=== PATIENT | female | born 1945 | race Caucasian/White ===

== ENCOUNTER 2023-12-28 13:29 | Emergency (ER) | payer MEDICARE, MEDICAID ==
[~2023-12-28] VITALS: Ht 170.2 cm; Wt 54.0 kg
[2023-12-28 15:14] LABS: Basophils # (auto) 0 10 ^3/uL (0-0.2); Basophils % (auto) 0.2 % (0.0-2.0); Eosinophils # (auto) 0 10 ^3/uL (0-0.8); Eosinophils % (auto) 0.8 % (0.0-7.0); Hematocrit 32.2 % (36.0-46.0); Hemoglobin 10.9 g/dL (12.2-16.2); Lymphocytes # (auto) 1.1 10 ^3/uL (0.4-5.4); Lymphocytes % (auto) 19.2 % (10.0-50.0); Mean Corpuscular Hemoglobin 31.5 pg (28.0-32.0); Mean Corpuscular Hgb Conc. 33.9 g/dL (32.0-36.0); Mean Corpuscular Volume 93.1 fL (80.0-100.0); Monocytes # (auto) 0.6 10 ^3/uL (0-1.3); Monocytes % (auto) 11.1 % (0.0-12.0); Neutrophils # (auto) 3.9 10 ^3/uL (1.6-8.6); Neutrophils % (auto) 68.7 % (37.0-80.0); Red Blood Cells 3.46 10^6/uL (4.0-5.20); Red Cell Distribution Width 14.1 % (11.8-14.3); White Blood Cell 5.7 10^3/uL (4.4-10.8)
[2023-12-28 16:22] LABS: Alanine Aminotransferase 14 U/L (7-40); Albumin 4.3 g/dL (3.2-4.8); Alkaline Phosphatase 76 U/L (46-116); Anion Gap 7 (5-15); Aspartate Aminotransferase 17 U/L (13-40); BUN/Creatinine Ratio 14.9 (10.0-20.0); Bilirubin, Total 0.3 mg/dL (0.2-1.0); Blood Urea Nitrogen 14 mg/dL (9-23); Calcium 9.7 mg/dL (8.7-10.4); Carbon Dioxide 22 mmol/L (20-30); Chloride 108 mmol/L (98-107); Glucose 95 mg/dL (74-106); Lipase 62 U/L (12-53); Potassium 4.1 mmol/L (3.5-5.1); Sodium 137 mmol/L (136-145)
[2023-12-28] MEDS: diphenhdrAMINE HCL 50 MG/1 ML VL IM ONE ×2 (16:57→17:28)
[2023-12-28 17:35] LABS: Urine Amorphous Crystal FEW /hpf (None Seen); Urine Bacteria FEW /hpf (None Seen); Urine Blood Negative /uL (Negative); Urine Clarity Clear (Clear); Urine Color Light-Yellow (Yellow); Urine Mucus FEW (None Seen); Urine Protein, UAD Negative (Negative); Urine Specific Gravity 1.011 (1.001-1.035); Urine Urobilinogen Normal (Negative); Urine WBC 1 /hpf (0 - 5)
[2023-12-28] MEDS: LORazepam 2MG/ML-1ML VIAL IV ONE (18:02)
[2023-12-28 19:45] VITALS: PULSE 63; RESP 15; O2SAT 97
[2023-12-28 22:48] VITALS: BP 120/48; PULSE 52; RESP 13; TEMP 97.9; O2SAT 97
== END 2023-12-28 22:53 | disposition short-term general hospital (02) ==
LOC: ER 13:29 → EDBD 13:29 → UNDOADMIN 18:32 → TELE 18:32 → ER 22:53
DX: G93.41 Metabolic encephalopathy (principal); I62.00 Nontraumatic subdural hemorrhage, unspecified; F03.90 Unspecified dementia, unspecified severity, without behavioral disturbance, psychotic disturbance, mood disturbance, and anxiety; M25.512 Pain in left shoulder; M25.511 Pain in right shoulder; Z73.6 Limitation of activities due to disability
CPT/HCPCS: 36415; 70450; 71045; 80053; 81001; 82140; 83690; 84484; 85025; 93005; 96372; 96374; 99291; J1200; J2060

== ENCOUNTER 2024-08-24 16:28 | Inpatient (IN) | payer OTHER, MEDICAID ==
[~2024-08-24] VITALS: Ht 162.6 cm; Wt 56.9 kg
--- NOTE | 2024-08-24 16:51 | ECG ---
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
--- NOTE | 2024-08-24 17:13 | ED.PDOC ---
History of Present Illness HPI Comments 79 y.o female with PMHx of dementia presents to the ED via EMS for an evaluation of generalized weakness. Per EMS, patient was found on the floor by family members today at home at around 0500. Family member on scene reported patient grabbed her chest and so they called 911. Patient presents to the ED A+O x1 which is her baseline. Patient has bruising to the left eye. No further information provided as family is not present at the ED at this time. 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 Family History Family History: Unknown Social History Smoker: Unknown Alcohol: Unknown Drugs: Unknown Lives In: Assisted Care, Shelter Unable to Obtain due to: Altered Mental Status, Dementia, Other (hx of alzheimers ) Physical Exam General Appearance: Mild Distress HEENT: PERRL/EOMI, Other (Left supraorbital bruising and soft tissue tenderness) Neck: Full Range of Motion, Normal Inspection, Supple, Other (Patient winces when the midline and paraspinal cervical area is palpated.) Respiratory: Chest Non-Tender, Lungs Clear, No Accessory Muscle Use, No Respiratory Distress, Normal Breath Sounds Cardiovascular: No Edema, No JVD (Fourteen IV gave need to be on a D5 infusion), Regular Rate/Rhythm Breast Exam: Deferred Gastrointestinal: Non Tender, Soft Genitalia: Deferred Pelvic: Deferred Rectal: Deferred Extremities: Normal inspection, Normal range of motion, Non-tender, No pedal edema Neurologic: Alert (Oriented x1), Other (Appears anxious and confused. Does not follow commands. Occasionally can answer yes/no questions. Moves all extremities. No gross focal deficit.) Cerebellar Function: NOT DONE Reflexes: NOT DONE Skin: Bruises (Left supraorbital), Dry, Normal Color, Warm Lymphatic: NOT DONE Was a procedure done? Was a procedure done?: No EKG EKG : Comments Sinus rhythm, rate 91, normal intervals, borderline right axis deviation, normal QRS, inferior ST depression with other nonspecific T changes. Differential Dx Considerations may include: CVA, TIA, facial fracture, intracranial hemorrhage, skull fracture, arrhythmia, MD, infection such as UTI or pneumonia, sepsis, rhabdomyolysis, Electrolyte imbalance, Dehydration, renal failure, among others X-Ray, Labs, Meds, VS Vital Signs Date Time Temp Pulse Resp B/P (MAP) Pulse Ox O2 Delivery O2 Flow Rate FiO2 08/24/24 21:10 83 15 98 Nasal Cannula* 2 28 08/24/24 21:09 100.9 100.9 08/24/24 20:00 86 08/24/24 19:41 99.9 90 17 164/65 (98) 94 99.9 08/24/24 18:16 Room Air* 0 21 08/24/24 17:48 98.1 94 17 128/69 (88) 98 98.1 08/24/24 16:43 97.3 73 18 100/49 (66) 94 08/24/24 16:39 91 Lab Test 08/24/24 21:16 08/24/24 20:55 08/24/24 19:01 08/24/24 18:15 Range/Units Troponin I High Sensitivity Pending 8 9 </=34 ng/L Urine Color Yellow Yellow Urine Clarity Clear Clear Urine pH 7.5 5.0-9.0 Urine Specific [place] 1.024 1.001-1.035 Urine Protein 1+ H Negative Urine Ketones 1+ H Negative Urine Blood 1+ H Negative /uL Urine Nitrite Negative Negative Urine Bilirubin Negative Negative Urine Urobilinogen 2 H Negative mg/dL Urine Leukocyte Esterase Negative Negative /uL Urine RBC 22 0 - 4 /hpf Urine Microscopic WBC 1 0-5 /HPF Urine Squamous Epithelial Cells Few <5 /hpf Urine Bacteria None seen None Seen /hpf Urine Glucose Normal Normal mg/dL White Blood Count 10.5 4.4-10.8 10^3/uL Red Blood Count 3.66 L 4.0-5.20 10^6/uL Hemoglobin 11.2 L 12.2-16.2 g/dL Hematocrit 32.4 L 36.0-46.0 % Mean Corpuscular Volume 88.4 80.0-100.0 fL Mean Corpuscular Hemoglobin 30.7 28.0-32.0 pg Mean Corpuscular Hemoglobin Concent 34.7 32.0-36.0 g/dL Red Cell Distribution Width 16.5 H 11.8-14.3 % Platelet Count 145 140-450 10^3/uL Mean Platelet Volume 7.6 6.9-10.8 fL Neutrophils (%) (Auto) 86.2 H 37.0-80.0 % Lymphocytes (%) (Auto) 3.2 L 10.0-50.0 % Monocytes (%) (Auto) 10.3 0.0-12.0 % Eosinophils (%) (Auto) 0.0 0.0-7.0 % Basophils (%) (Auto) 0.3 0.0-2.0 % Neutrophils # (Auto) 9.1 H 1.6-8.6 10 ^3/uL Lymphocytes # (Auto) 0.3 L 0.4-5.4 10 ^3/uL Monocytes # (Auto) 1.1 0-1.3 10 ^3/uL Eosinophils # (Auto) 0 0-0.8 10 ^3/uL Basophils # (Auto) 0 0-0.2 10 ^3/uL Nucleated Red Blood Cells 0.0 % Sodium Level 137 136-145 mmol/L Potassium Level 4.0 3.5-5.1 mmol/L Chloride Level 101 98-107 mmol/L Carbon Dioxide Level 26 20-31 mmol/L Anion Gap 10 5-15 Blood Urea Nitrogen 21 9-23 mg/dL Creatinine 1.04 H 0.550-1.02 mg/dL Glomerular Filtration Rate Calc 55 >90 mL/min BUN/Creatinine Ratio 20.2 H 10.0-20.0 Serum Glucose 102 74-106 mg/dL Lactic Acid Level 1.8 0.4-2.0 mmol/L Calcium Level 10.0 8.7-10.4 mg/dL Total Bilirubin 0.5 0.2-1.0 mg/dL Aspartate Amino Transferase (AST) 71 H 13-40 U/L Alanine Aminotransferase (ALT) 30 7-40 U/L Alkaline Phosphatase 74 46-116 U/L Creatine Kinase 2407 H 34-145 U/L B-Type Natriuretic Peptide 379.13 0-100 pg/mL Total Protein 7.9 5.7-8.2 g/dL Albumin 4.7 3.2-4.8 g/dL Current Medications Medications (Trade) Dose Ordered Sig/Ijeoma Route Start Time Stop Time Status Last Admin Lorazepam (Ativan Inj) 0.5 mg ONCE ONCE IV 08/24/24 17:15 08/24/24 17:16 DC 08/24/24 18:15 CHEST RADIOGRAPH Indication: found down Technique: Single frontal view of the chest was obtained Comparison: XY CHEST XRAY 1 VIEW on DOS: 12/28/23 FINDINGS: Lines and Tubes: None Lungs: Mild elevation of the right diaphragm with linear atelectasis in the right base just above the diaphragm. Pleura: No effusion. No pneumothorax. Cardiomediastinal contours: Unremarkable Bones: No acute osseous abnormality. IMPRESSION: 1. Linear atelectasis right base ATED BY: WAYNE CHAMPAGNE Jr., DO DICTATED DATE/TIME: 08/24/241813 SIGNED BY: WAYNE CHAMPAGNE Jr., SIGNED DATE/TIME: 08/24/241813 CC: [place] [id number] Ph: [phone] DIAGNOSTIC IMAGING Diagnostic Imaging Report : [id number] Signed PATIENT: KALIN CRAMER ACCT: [id number] UNIT: [id number] : 1945 LOC: ER ROOM / BED: / AGE / SEX: 79 / F ADM STATUS: REG ER SERVICE 07 ORDERING PHYSICIAN: IVANNA BUTLER MD PROCEDURE(s): HWOCT - HEAD WITHOUT CONTRAST REASON: found down with facial bruising ORDER NUMBER(s): [id number], ACCESSION NUMBER(s): [id number] EXAM: CT HEAD WITHOUT CONTRAST INDICATION: found down with facial bruising TECHNIQUE: CT of the head without intravenous contrast. Radiation Dose Information: CT Dose: CTDI volume is 56.05 mGy. Dose-length pr oduct is 2056.1 mGy*cm The dose indicators for CT are the volume Computed Tomography (CT) Dose Index (CTDIvol) and the Dose Length Product (DLP), and are measured in units of mGy and mGy-cm, respectively. These indicators are not patient dose, but values generated from the CT scanner acquisition factors. The report includes radiation exposure data for exposures received during this examination. COMPARISON: CT HEAD WITHOUT CONTRAST on DOS: 12/28/23 FINDINGS: There is no evidence of acute intracranial hemorrhage, extra-axial collection, mass effect, midline shift, herniation or hydrocephalus. The ventricles, sulci and cisterns are age appropriate. The tineo-white differentiation is intact. Patchy periventricular and subcortical white matter hypoattenuation is nonspecific but may be related to small vessel ischemic disease. The visualized paranasal sinuses and mastoid air cells are clear. The surrounding soft tissues and osseous structures are unremarkable. IMPRESSION: 1. 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 2. No acute intracranial hemorrhage. 3. No findings of territorial ischemia ATED BY: WAYNE CHAMPAGNE Jr., DO DICTATED DATE/TIME: 08/24/241826 SIGNED BY: WAYNE CHAMPAGNE Jr., SIGNED DATE/TIME: 08/24/241826 CC: [place] [address] Ph: [phone] DIAGNOSTIC IMAGING Diagnostic Imaging Report : [id number] Signed PATIENT: KALIN CRAMER ACCT: [id number] UNIT: [id number] : 1945 LOC: ER ROOM / BED: / AGE / SEX: 79 / F ADM STATUS: REG ER SERVICE 07 ORDERING PHYSICIAN: IVANNA BUTLER MD PROCEDURE(s): FAC2C - MAXILLOFACIAL WITHOUT REASON: found down with L eyebrow bruising ORDER NUMBER(s): [id number], ACCESSION NUMBER(s): [id number] HISTORY: found down with L eyebrow bruising TECHNIQUE: Nonenhanced axial images through the facial bones with coronal and sagittal MPR. Radiation Dose Information: CT Dose: CTDI volume is 7.58 mGy. Dose-length product is 2056.61 mGy*cm COMPARISON: None Comments: Limited exam due to suboptimal patient positioning. FINDINGS: Mandible: Unremarkable Maxilla: Torus palatinus. No evidence of acute fracture. Zygomatic arches: Unremarkable Nasal bone: Unremarkable Orbits: Unremarkable Sinuses: Clear Dental: Scattered dental and periodontal disease. Multiple missing teeth. Facial swelling: Mild left periorbital soft tissue swelling. No evidence of soft tissue gas or radiopaque foreign bodies. IMPRESSION: 1. No acute facial fractures. 2. Mild left periorbital soft tissue swelling. Radiation optimization: All CT scans at this facility use at least one of these dose optimization techniques: automated exposure control mA and/or kV adjustment per patient size (includes targeted exams where dose is matched to clinical indication) or iterative reconstruction. ATED BY: AGATHA GODDARD DO DICTATED DATE/TIME: 08/24/241842 SIGNED BY: AGATHA GODDARD DO SIGNED DATE/TIME: 08/24/241842 CC: [place] [address] Ph: [phone] DIAGNOSTIC IMAGING Diagnostic Imaging Report : [id number] Signed PATIENT: KALIN CRAMER ACCT: [id number] UNIT: [id number] : 1945 LOC: ER ROOM / BED: / AGE / SEX: 79 / F ADM STATUS: REG ER SERVICE 07 ORDERING PHYSICIAN: IVANNA BUTLER MD PROCEDURE(s): CS2 - CERVICAL WITHOUT CONTRAST REASON: found down ORDER NUMBER(s): [id number], ACCESSION NUMBER(s): [id number] EXAM: CT CERVICAL WITHOUT CONTRAST HISTORY: found down COMPARISON: None CTDIvol 7.58 mGy, DLP 2056.61 mGy*cm. TECHNIQUE: Multiple axial CT images of the spine were obtained using bone algorithm. Axial and coronal reformatting was done. Bone and soft tissue win dows were reviewed. Comments: Exam is limited due to suboptimal positioning within the scanner. FINDINGS: No evidence of acute fracture or traumatic subluxation. Vertebral body heights are maintained. Trace anterolisthesis C4/C5 and C7/T1. Advanced degenerative disc changes at C5- C6 and C6-C7 with disc osteophyte complexes. There is moderate spinal canal narrowing at C6-C7 and moderate to severe narrowing at C5-C6. Multilevel facet and uncovertebral joint arthropathy. Mild bilateral neural foraminal narrowing at C2-C3. Mild right and moderate to severe left neural foraminal narrowing at C3-C4. Moderate bilateral neural foraminal narrowing at C4-C5. Moderate to severe bilateral neural foraminal narrowing at C5-C6. Mild left and moderate to severe right neural foraminal narrowing at C6-C7. The visualized paraspinal soft tissues are grossly unremarkable. There is torus palatinus. No apical pneumothorax. There is a 6 mm hypodense nodule in the left thyroid which does not require further evaluation. IMPRESSION: 1. No evidence of acute fracture or traumatic subluxation in the cervical spine. 2. Advanced degenerative disc changes at C5-C6 and C6-C7. There is moderate to severe spinal canal narrowing at C5-C6. 3. Multilevel neural foraminal narrowing as described above. ATED BY: AGATHA GODDARD DO DICTATED DATE/TIME: 08/24/241835 SIGNED BY: AGATHA GODDARD DO SIGNED DATE/TIME: 08/24/241835 CC: X-Ray, Labs, Meds, VS Comment 79-year-old female with a history of dementia with baseline orientation x1 brought in by EMS after being found on the floor by family Vitals remarkable for temperature 100.9, BP 164/65 Exam remarkable for left supraorbital bruising, wincing when posterior neck is palpated Rhythm strip independently interpreted by me: Sinus rhythm, rate 94, no ectopy. CT head, C-spine and maxillofacial bones unremarkable for any acute fracture CBC unremarkable, metabolic panel remarkable for creatinine 1.04, lactate, troponin and UA unremarkable for any abnormality of acute significance. Total CK 2407 Patient treated with the following in the ED: Ativan 0.5 mg IV for agitation, 1 L 0.9 normal saline IV bolus, Tylenol fever control.650 mg [place] On re-evaluation, patient is resting comfortably with stable vitals. Plan is to admit the patient for IV hydration. Time of 1ST Reevaluation: 17:10 Reevaluation 1ST: Unchanged Patient Education/Counseling: Other Family Education/Counseling: No Family Present Departure 1 Departure Time of Disposition: 22:00 Impression: Primary Impression: Unwitnessed fall Additional Impressions: Contusion of left supraorbital area Febrile illness, acute Rhabdomyolysis Qualified Codes: M62.82 - Rhabdomyolysis Disposition: 09 ADMITTED INPATIENT Admit to: Tele Condition: Guarded Critical Care Note Critical Care Time?: No Stability Stability form required: No Heart Score Heart Score: Heart Score Response (Comments) Value History N/A 0 EKG N/A 0 Age N/A 0 Risk Factors N/A 0 Troponin N/A 0 Total 0 I personally scribed for IVANNA BUTLER MD ([facility] on 08/24/24 at 17:13. Electronically submitted by Shalonda Simeon ([facility]). I personally scribed for IVANNA BUTLER MD ([facility] on 08/24/24 at 19:48. Electronically submitted by Shalonda Simeon ([facility]). I personally scribed for IVANNA BUTLER MD ([facility]) on 08/24/24 at 19:49. Electronically submitted by Shalonda Simeon ([facility]). IVANNA BUTLER MD Aug 24, 2024 17:13
[2024-08-24] MEDS: LORazepam 2MG/ML-1ML VIAL IV ONE (18:15)
--- NOTE | 2024-08-24 18:17 | DVH ---
CHEST RADIOGRAPH Indication: found down Technique: Single frontal view of the chest was obtained Comparison: XY CHEST XRAY 1 VIEW on DOS: 12/28/23 FINDINGS: Lines and Tubes: None Lungs: Mild elevation of the right diaphragm with linear atelectasis in the right base just above the diaphragm. Pleura: No effusion. No pneumothorax. Cardiomediastinal contours: Unremarkable Bones: No acute osseous abnormality. IMPRESSION: 1. Linear atelectasis right base
[2024-08-24 18:29] LABS: Basophils # (auto) 0 10 ^3/uL (0-0.2); Basophils % (auto) 0.3 % (0.0-2.0); Eosinophils # (auto) 0 10 ^3/uL (0-0.8); Hematocrit 32.4 % (36.0-46.0); Hemoglobin 11.2 g/dL (12.2-16.2); Lymphocytes # (auto) 0.3 10 ^3/uL (0.4-5.4); Lymphocytes % (auto) 3.2 % (10.0-50.0); Mean Corpuscular Hemoglobin 30.7 pg (28.0-32.0); Mean Corpuscular Hgb Conc. 34.7 g/dL (32.0-36.0); Mean Corpuscular Volume 88.4 fL (80.0-100.0); Monocytes # (auto) 1.1 10 ^3/uL (0-1.3); Monocytes % (auto) 10.3 % (0.0-12.0); Neutrophils # (auto) 9.1 10 ^3/uL (1.6-8.6); Neutrophils % (auto) 86.2 % (37.0-80.0); Platelet Count (auto) 145 10^3/uL (140-450); Red Blood Cells 3.66 10^6/uL (4.0-5.20); Red Cell Distribution Width 16.5 % (11.8-14.3); White Blood Cell 10.5 10^3/uL (4.4-10.8)
--- NOTE | 2024-08-24 18:30 | DVH ---
EXAM: CT HEAD WITHOUT CONTRAST INDICATION: found down with facial bruising TECHNIQUE: CT of the head without intravenous contrast. Radiation Dose Information: CT Dose: CTDI volume is 56.05 mGy. Dose-length product is 2056.1 mGy*cm The dose indicators for CT are the volume Computed Tomography (CT) Dose Index (CTDIvol) and the Dose Length Product (DLP), and are measured in units of mGy and mGy-cm, respectively. These indicators are not patient dose, but values generated from the CT scanner acquisition factors. The report includes radiation exposure data for exposures received during this examination. COMPARISON: CT HEAD WITHOUT CONTRAST on DOS: 12/28/23 FINDINGS: There is no evidence of acute intracranial hemorrhage, extra-axial collection, mass effect, midline s hift, herniation or hydrocephalus. The ventricles, sulci and cisterns are age appropriate. The tineo-white differentiation is intact. Patchy periventricular and subcortical white matter hypoattenuation is nonspecific but may be related to small vessel ischemic disease. The visualized paranasal sinuses and mastoid air cells are clear. The surrounding soft tissues and osseous structures are unremarkable. IMPRESSION: 1. 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 2. No acute intracranial hemorrhage. 3. No findings of territorial ischemia
--- NOTE | 2024-08-24 18:39 | DVH ---
EXAM: CT CERVICAL WITHOUT CONTRAST HISTORY: found down COMPARISON: None CTDIvol 7.58 mGy, DLP 2056.61 mGy*cm. TECHNIQUE: Multiple axial CT images of the spine were obtained using bone algorithm. Axial and coron al reformatting was done. Bone and soft tissue windows were reviewed. Comments: Exam is limited due to suboptimal positioning within the scanner. FINDINGS: No evidence of acute fracture or traumatic subluxation. Vertebral body heights are maintained. Trace anterolisthesis C4/C5 and C7/T1. Advanced degenerative disc changes at C5-C6 and C6-C7 with dis c osteophyte complexes. There is moderate spinal canal narrowing at C6-C7 and moderate to severe narr owing at C5-C6. Multilevel facet and uncovertebral joint arthropathy. Mild bilateral neural foraminal narrowing at C2-C3. Mild right and moderate to severe left neural foraminal narrowing at C3-C4. Mode rate bilateral neural foraminal narrowing at C4-C5. Moderate to severe bilateral neural foraminal jada rowing at C5-C6. Mild left and moderate to severe right neural foraminal narrowing at C6-C7. The visualized paraspinal soft tissues are grossly unremarkable. There is torus palatinus. No apical pneumothorax. There is a 6 mm hypodense nodule in the left thyro id which does not require further evaluation. IMPRESSION: 1. No evidence of acute fracture or traumatic subluxation in the cervical spine. 2. Advanced degenerative disc changes at C5-C6 and C6-C7. There is moderate to severe spinal canal na rrowing at C5-C6. 3. Multilevel neural foraminal narrowing as described above.
--- NOTE | 2024-08-24 18:46 | DVH ---
HISTORY: found down with L eyebrow bruising TECHNIQUE: Nonenhanced axial images through the facial bones with coronal and sagittal MPR. Radiation Dose Information: CT Dose: CTDI volume is 7.58 mGy. Dose-length product is 2056.61 mGy*cm COMPARISON: None Comments: Limited exam due to suboptimal patient positioning. FINDINGS: Mandible: Unremarkable Maxilla: Torus palatinus. No evidence of acute fracture. Zygomatic arches: Unremarkable Nasal bone: Unremarkable Orbits: Unremarkable Sinuses: Clear Dental: Scattered dental and periodontal disease. Multiple missing teeth. Facial swelling: Mild left periorbital soft tissue swelling. No evidence of soft tissue gas or radio paque foreign bodies. IMPRESSION: 1. No acute facial fractures. 2. Mild left periorbital soft tissue swelling. Radiation optimization: All CT scans at this facility use at least one of these dose optimization gabrielle hniques: automated exposure control mA and/or kV adjustment per patient size (includes targeted exam s where dose is matched to clinical indication) or iterative reconstruction.
[2024-08-24 18:50] LABS: Alanine Aminotransferase 30 U/L (7-40); Alkaline Phosphatase 74 U/L (46-116); Anion Gap 10 (5-15); BUN/Creatinine Ratio 20.2 (10.0-20.0); Blood Urea Nitrogen 21 mg/dL (9-23); Carbon Dioxide 26 mmol/L (20-31); Chloride 101 mmol/L (98-107); Glucose 102 mg/dL (74-106); Sodium 137 mmol/L (136-145)
[2024-08-24 18:51] LABS: Albumin 4.7 g/dL (3.2-4.8); Bilirubin, Total 0.5 mg/dL (0.2-1.0); Total Protein 7.9 g/dL (5.7-8.2)
[2024-08-24 18:54] LABS: Aspartate Aminotransferase 71 U/L (13-40)
[2024-08-24 19:45] LABS: Creatine Kinase IFCC 2407 U/L (34-145)
[2024-08-24 21:10] VITALS: PULSE 83; RESP 15; O2SAT 98
[2024-08-24 21:11] LABS: Urine Bacteria None Seen /hpf (None Seen)
[2024-08-24 21:25] LABS: Urine Blood 1+ /uL (Negative); Urine Clarity Clear (Clear); Urine Color Yellow (Yellow); Urine Protein, UAD 1+ (Negative); Urine Specific Gravity 1.024 (1.001-1.035); Urine Squamous Epithelial Cell FEW /hpf (<5); Urine Urobilinogen 2 mg/dL (Negative); Urine WBC 1 /HPF (0-5); Urine pH 7.5 (5.0-9.0)
[2024-08-24] MEDS: ACETAMINOPHEN 650 MG RECT SUPP PR ONE (22:02)
[2024-08-24] MEDS ORDERED: NITROGLYCERIN 0.4 MG SL TAB SL PRN (22:45)
[2024-08-24] MEDS ORDERED: MORPHINE SULFATE INJ 2 MG/ml SYRG IV PRN (22:45)
[2024-08-24] MEDS ORDERED: SODIUM CHLORIDE 0.9% 1,000 ML IV SCH (22:45)
[2024-08-24] MEDS ORDERED: ACETAMINOPHEN 325 MG TAB PO PRN (22:45)
[2024-08-24] MEDS: SODIUM CHLORIDE 0.9% 1,000 ML IV ONE (22:48)
--- NOTE | 2024-08-24 23:17 | DVHHPRES ---
History of Present Illness Resident Creating Document: CHRIS SPARKS RESIDENT History of Present Illness KALIN CRAMER a 79-year-old female with a PMH of Alzheimer's dementia presented to the ED with the chief complaints of altered level of sensorium. Patient is poor historian, history obtained from EMS, reported patient is generally always altered due to dementia but today patient family found patient was on the floor, called 911. The reported patient is more altered than usual which prompted them to call EMS. PMH: Dementia likely Alzheimer's PSH: Unable to obtain Family history unable to obtain Social history: Lives in [facility]. Home medications: Unknown Allergies: Unknown Review of Systems Review of Systems Unable to obtain ROS due to patient's clinical status Neurological: Weakness, Confusion Allergies: Coded Allergies: NO KNOWN ALLERGIES (Unverified , 12/28/23) Medications Current Medications Medications Dose Ordered Sig/Ijeoma Route Start Time Stop Time Status Last Admin Dose Admin Sodium Chloride 10 ml Q8HR IV 08/25/24 06:00 Acetaminophen 650 mg Q6HP PRN PO 08/24/24 22:45 Nitroglycerin 0.4 mg Q5MINP PRN SL 08/24/24 22:45 Morphine Sulfate 2 mg Q30M PRN IV 08/24/24 22:45 Pantoprazole Sodium 40 mg DAILY IV 08/25/24 10:00 Sodium Chloride 1,000 ml @ 120 mls/hr Q8H20M IV 08/24/24 23:15 Exam Vital Signs Vital Signs Date Time Temp Pulse Resp B/P (MAP) Pulse Ox O2 Delivery O2 Flow Rate FiO2 08/24/24 22:02 100.9 08/24/24 21:10 83 15 98 Nasal Cannula* 08 2908/24/24 19:41 164/65 (98) Exam Pt is lying on bed General Appearance: Confused, Oriented X0 HEENT: Atraumatic, Mucous membranes dry Respiratory: Clear to auscultation, Normal air movement Cardiovascular: Regular rate, Normal S1, Normal S2 Abdominal: Active bowel sounds, Soft, no distention, no tenderness Extremities: 1-2+ edema BLE, Normal pulses, No tenderness/swelling Skin: Bruits over left supraorbit Neuro: Confused, unable to do Nurse was there as sharperone during examination Labs/Xrays Labs Test 08/24/24 21:42 08/24/24 21:16 08/24/24 20:55 08/24/24 18:15 Range/Units POC Glucose 113 H 70-106 mg/dl Troponin I High Sensitivity 8 </=34 ng/L Urine Color Yellow Yellow Urine Clarity Clear Clear Urine pH 7.5 5.0-9.0 Urine Specific [place] 1.024 1.001-1.035 Urine Protein 1+ H Negative Urine Ketones 1+ H Negative Urine Blood 1+ H Negative /uL Urine Nitrite Negative Negative Urine Bilirubin Negative Negative Urine Urobilinogen 2 H Negative mg/dL Urine Leukocyte Esterase Negative Negative /uL Urine RBC 22 0 - 4 /hpf Urine Microscopic WBC 1 0-5 /HPF Urine Squamous Epithelial Cells Few <5 /hpf Urine Bacteria None seen None Seen /hpf Urine Glucose Normal Normal mg/dL White Blood Count 10.5 4.4-10.8 10^3/uL Red Blood Count 3.66 L 4.0-5.20 10^6/uL Hemoglobin 11.2 L 12.2-16.2 g/dL Hematocrit 32.4 L 36.0-46.0 % Mean Corpuscular Volume 88.4 80.0-100.0 fL Mean Corpuscular Hemoglobin 30.7 28.0-32.0 pg Mean Corpuscular Hemoglobin Concent 34.7 32.0-36.0 g/dL Red Cell Distribution Width 16.5 H 11.8-14.3 % Platelet Count 145 140-450 10^3/uL Mean Platelet Volume 7.6 6.9-10.8 fL Neutrophils (%) (Auto) 86.2 H 37.0-80.0 % Lymphocytes (%) (Auto) 3.2 L 10.0-50.0 % Monocytes (%) (Auto) 10.3 0.0-12.0 % Eosinophils (%) (Auto) 0.0 0.0-7.0 % Basophils (%) (Auto) 0.3 0.0-2.0 % Neutrophils # (Auto) 9.1 H 1.6-8.6 10 ^3/uL Lymphocytes # (Auto) 0.3 L 0.4-5.4 10 ^3/uL Monocytes # (Auto) 1.1 0-1.3 10 ^3/uL Eosinophils # (Auto) 0 0-0.8 10 ^3/uL Basophils # (Auto) 0 0-0.2 10 ^3/uL Nucleated Red Blood Cells 0.0 % Sodium Level 137 136-145 mmol/L Potassium Level 4.0 3.5-5.1 mmol/L Chloride Level 101 98-107 mmol/L Carbon Dioxide Level 26 20-31 mmol/L Anion Gap 10 5-15 Blood Urea Nitrogen 21 9-23 mg/dL Creatinine 1.04 H 0.550-1.02 mg/dL Glomerular Filtration Rate Calc 55 >90 mL/min BUN/Creatinine Ratio 20.2 H 10.0-20.0 Serum Glucose 102 74-106 mg/dL Lactic Acid Level 1.8 0.4-2.0 mmol/L Calcium Level 10.0 8.7-10.4 mg/dL Total Bilirubin 0.5 0.2-1.0 mg/dL Aspartate Amino Transferase (AST) 71 H 13-40 U/L Alanine Aminotransferase (ALT) 30 7-40 U/L Alkaline Phosphatase 74 46-116 U/L Creatine Kinase 2407 H 34-145 U/L B-Type Natriuretic Peptide 379.13 0-100 pg/mL Total Protein 7.9 5.7-8.2 g/dL Albumin 4.7 3.2-4.8 g/dL Assessment/Plan Assessment/Plan # acute toxic or metabolic encephalopathy # mechanical fall likely with altered sensorium # H/o Alzheimer's dementia # supraorbital bruise r/o hematoma # R/o acute CVA -head CT showed no acute changes -CT maxillofacial showed mild left periorbital soft tissue swelling -supportive treatment -physical therapy -Neuro consult # Rhabdomyolysis -elevated CK -closely monitor kidney function -give IVF PUD PPX: Protonix VTE PPX: Hold Lovenox due to fall Diet: NPO Goals of care unable to discuss due to patient's status so Full code status Pending discussion regarding goals of care with family Case discussed with Dr. Coombs and nurse. Plan discussed with: Other (RN) My Orders Orders - CHRIS SPARKS RESIDENT Procedure Category Date Status Time Admit ADMIT 08/24/24 Transmitted 22:45 Allergies SG 08/24/24 In Process 22:45 Code Status CODE 08/24/24 Transmitted 22:45 Sodium Chloride Lock PHA 08/25/24 In Process (Saline Lock Ns) 06:00 Fall Risk Precautions SG 08/24/[address] 22:45 Complete Blood Count LAB 08/25/24 Verified 04:00 Comprehensive LAB 08/25/24 Verified Metabolic Panel 04:00 Npo (Nothing By DIET 08/25/24 Transmitted Mouth) Diet Breakfast Condition: Fair [facility] 08/24/24 In Process 22:45 Acetaminophen Tablet PHA 08/24/24 In Process (Tylenol Tablet) 22:45 Nitroglycerin PHA 08/24/24 In Process Sublingual (Ntrostat 22:45 Morphine Sulfate PHA 08/24/24 In Process Injection 22:45 Oxygen By Nasal RT 08/24/24 Transmitted Cannula 22:45 Stat Ekg For Chest SG 08/24/24 In Process Pain 22:45 Notify Md Of Changes [facility] 08/24/24 In Process From Base 22:45 Chamber Magistrate For [facility] 08/24/24 In Process 24 Hours 22:45 Emergency Dysrhythmia [facility] 08/24/24 In Process Protocol 22:45 Rhythm Strips Once SG 08/24/24 In Process Every Shift 22:45 Ammonia LAB 08/24/24 Logged 22:47 Blood Alcohol LAB 08/24/24 Logged 22:47 Drug Screen LAB 08/24/24 In Process 22:47 Covid19 Antigen [place] LAB 08/24/24 Logged Lactic Acid W/ Reflex LAB 08/24/24 Logged Order 22:47 Magnesium LAB 08/24/24 Logged 22:47 PTPTT LAB 08/24/24 Logged 22:47 Rapid Influenza A&B LAB 08/24/24 Logged 22:47 Thyroid Stimulating LAB 08/24/24 Logged Hormone 22:47 Pantoprazole PHA 08/25/24 In Process (Protonix) 10:00 Bilat Lower Dvt US 08/24/24 Taken 22:47 Sodium Chloride 0.9% PHA 08/24/24 In Process 23:15 Respiratory Culture AYO 08/24/24 Logged W/ Gs 23:13 Blood Culture AYO 08/24/24 Logged 23:13 Date of Service: Aug 25, 2024 Billing Provider: RADU COOMBS MD Common Visit Codes: [id number] INP/OBS CARE (HIGH) Secondary Visit Codes: [id number] CARE PLAN 30 MINUTES CLARELEXIEMOR RESIDENT Aug 24, 2024 23:17 RADU COOMBS MD Aug 25, 2024 10:16
--- NOTE | 2024-08-24 23:26 | DVH ---
Bilateral lower extremity venous duplex Clinical History: DVT Comparison: None Technique: Duplex Doppler evaluation of the deep venous systems of both lower extremities from the common femora l veins to the popliteal veins including color Doppler and spectral/pulsed waveform analysis was perf ormed. Findings: RIGHT SIDE: The common femoral vein demonstrates appropriate compressibility and waveform variability. There is compressibility/patency of the great saphenous vein at the proximal thigh. The femoral vein demonstrates appropriate compressibility and waveform variability. The deep femoral vein demonstrates appropriate compressibility and waveform variability. The popliteal vein demonstrates appropriate compressibility and waveform variability. There is normal compressibility at the tibioperoneal trunk. LEFT SIDE: The common femoral vein demonstrates appropriate compressibility and waveform variability. There is compressibility/patency of the great saphenous vein at the proximal thigh. The femoral vein demonstrates appropriate compressibility and waveform variability. The deep femoral vein demonstrates appropriate compressibility and waveform variability. The popliteal vein demonstrates appropriate compressibility and waveform variability. There is normal compressibility at the tibioperoneal trunk. Impression: No evidence of right or left femoropopliteal venous thrombosis.
[2024-08-24 23:36] LABS: Barbiturate Scree,Urine Neg (NEGATIVE); Opiate Scree,Urine Pos (NEGATIVE)
[2024-08-24 23:41] LABS: Amphetamine Screen, Urine Neg (NEGATIVE); Benzodiazephine Screen, Urine Pos (NEGATIVE); Cannabinoid Screen, Urine Neg (NEGATIVE); Cocaine Screen, Urine Neg (NEGATIVE); Phencyclidine Screen, Urine Neg (NEGATIVE)
[2024-08-24 23:57] LABS: INR 1.13 (0.9-1.15); Partial Thromboplastin Time 33.2 SEC (24.5-34.5); Prothrombin Time 11.8 sec (9.3-11.8)
[2024-08-25] VITALS (8 sets, daily range): BP systolic 100–134; BP diastolic 50–57; PULSE 65–99; RESP 16–20; TEMP 97.6–98.6; O2SAT 94–99
[2024-08-25 00:05] LABS: Blood Alcohol < 3.0 mg/dL (<10)
[2024-08-25 00:09] LABS: COVID19 ANTIGEN SOFIA FIA NEGATIVE (NEGATIVE); Rapid Influenza A Negative (Negative); Rapid Influenza B Negative (Negative)
[2024-08-25] MEDS: SODIUM CHLORIDE 0.9% 1,000 ML IV SCH (01:49)
[2024-08-25] MEDS: cefTRIAXone 1GM/50ML D5W 50 ML IV ONE (01:50)
[2024-08-25] MEDS: SODIUM CHLOR 0.9% PF (SALINE LOCK) 10ML VIAL/SYR IV SCH (06:00)
[2024-08-25 06:26] LABS: Basophils # (auto) 0 10 ^3/uL (0-0.2); Basophils % (auto) 0.2 % (0.0-2.0); Eosinophils # (auto) 0 10 ^3/uL (0-0.8); Eosinophils % (auto) 0.1 % (0.0-7.0); Hematocrit 29.1 % (36.0-46.0); Hemoglobin 9.8 g/dL (12.2-16.2); Lymphocytes # (auto) 0.4 10 ^3/uL (0.4-5.4); Lymphocytes % (auto) 4.8 % (10.0-50.0); Mean Corpuscular Hemoglobin 30.3 pg (28.0-32.0); Mean Corpuscular Hgb Conc. 33.7 g/dL (32.0-36.0); Mean Corpuscular Volume 89.9 fL (80.0-100.0); Monocytes # (auto) 1.2 10 ^3/uL (0-1.3); Monocytes % (auto) 13.6 % (0.0-12.0); Neutrophils # (auto) 7.2 10 ^3/uL (1.6-8.6); Neutrophils % (auto) 81.3 % (37.0-80.0); Platelet Count (auto) 131 10^3/uL (140-450); Red Blood Cells 3.23 10^6/uL (4.0-5.20); Red Cell Distribution Width 16.9 % (11.8-14.3); White Blood Cell 8.9 10^3/uL (4.4-10.8)
[2024-08-25 06:45] LABS: Alanine Aminotransferase 26 U/L (7-40); Alkaline Phosphatase 65 U/L (46-116); Anion Gap 9 (5-15); BUN/Creatinine Ratio 25.9 (10.0-20.0); Blood Urea Nitrogen 22 mg/dL (9-23); Calcium 9.2 mg/dL (8.7-10.4); Carbon Dioxide 26 mmol/L (20-31); Chloride 104 mmol/L (98-107); Glucose 85 mg/dL (74-106); Potassium 3.8 mmol/L (3.5-5.1); Sodium 139 mmol/L (136-145)
[2024-08-25 06:46] LABS: Albumin 3.8 g/dL (3.2-4.8)
[2024-08-25 06:47] LABS: Bilirubin, Total 0.3 mg/dL (0.2-1.0); Total Protein 6.5 g/dL (5.7-8.2)
[2024-08-25 06:54] LABS: Aspartate Aminotransferase 66 U/L (13-40)
[2024-08-25] MEDS: PANTOPRAZOLE 40 MG/10 ML VIAL INJ IV SCH (08:56)
[2024-08-25] MEDS: cefTRIAXone 1GM/50ML D5W 50 ML IV SCH (08:56)
[2024-08-25] MEDS ORDERED: TRAZ-227 (10:36)
[2024-08-25] MEDS ORDERED: DIVA1TAB58 (10:36)
[2024-08-25] MEDS ORDERED: ALPR0.255 (10:36)
[2024-08-25] MEDS ORDERED: QUET1TAB11 (10:36)
[2024-08-25] MEDS ORDERED: DONE5TAB80 (10:36)
[2024-08-25] MEDS: QUEtiapine FUMARATE 25 MG TAB PO SCH (11:30)
[2024-08-25] MEDS: ALPRAZolam 0.25 MG TAB PO PRN (11:30)
--- NOTE | 2024-08-25 15:45 | DVHPN2 ---
Subjective Patient denies any symptoms. Somewhat agitated. Reviewed: Care Plan, H&P, Labs, Medications Changes from previous H/P or p: No Changes General: Per HPI Objective Vitals Vital Signs Date Time Temp Pulse Resp B/P (MAP) Pulse Ox O2 Delivery O2 Flow Rate FiO2 08/25/24 13:00 98.6 69 17 109/50 (69) 94 98.6 08/25/24 05:13 Room Air* 2 N/A Nasal Cannula* Intake/Output Intake and Output 08/25/24 06:59 Output Total 100 ml Balance -100 ml Output Urine Total 100 ml General Appearance: Alert, Cooperative, Other (Oriented to name) HEENT: Atraumatic, PERRLA, Other (Facial trauma) Cardiovascular: Regular rate, Normal S1, Normal S2 Abdomen: Normal bowel sounds, Soft, No tenderness Neuro: Normal gait, Normal speech Psych/Mental Status: Mental status NL, Mood NL Medications Current Medications Medications Dose Ordered Sig/Ijeoma Route Start Time Stop Time Status Last Admin Dose Admin Sodium Chloride 10 ml Q8HR IV 08/25/24 06:00 08/25/24 13:49 10 ML Acetaminophen 650 mg Q6HP PRN PO 08/24/24 22:45 Nitroglycerin 0.4 mg Q5MINP PRN SL 08/24/24 22:45 Morphine Sulfate 2 mg Q30M PRN IV 08/24/24 22:45 Pantoprazole Sodium 40 mg DAILY IV 08/25/24 10:00 08/25/24 08:56 40 MG Sodium Chloride 1,000 ml @ 120 mls/hr Q8H20M IV 08/24/24 23:15 08/25/24 07:35 120 MLS/HR Ceftriaxone Sodium 50 ml @ 100 mls/hr DAILY@09 IV 08/25/24 09:00 08/25/24 08:56 100 MLS/HR Alprazolam 0.25 mg Q12HP PRN PO 08/25/24 10:45 08/25/24 11:30 0.25 MG Divalproex Sodium 250 mg DAILY PO 08/26/24 10:00 Donepezil HCl 5 mg DAILY PO 08/26/24 10:00 Quetiapine Fumarate 25 mg DAILY PO 08/25/24 10:45 08/25/24 11:30 25 MG Trazodone HCl 50 mg HS PO 08/25/24 22:00 Haloperidol Lactate 2 mg [id number] PRN IV 08/25/24 14:30 Laboratory Results Laboratory Tests 08/25/24 05:37 Chemistry Test 08/24/24 18:15 08/24/24 23:13 08/25/24 05:37 Albumin 4.7 g/dL (3.2-4.8) 3.8 g/dL (3.2-4.8) Calcium Level 10.0 mg/dL (8.7-10.4) 9.2 mg/dL (8.7-10.4) Total Protein 7.9 g/dL (5.7-8.2) 6.5 g/dL (5.7-8.2) Magnesium Level 2.0 mg/dL (1.6-2.6) Coagulation Test 08/24/24 23:13 Prothrombin Time 11.8 sec (9.3-11.8) Prothrombin Time INR 1.13 (0.9-1.15) Activated Partial Thromboplast Time 33.2 SEC (24.5-34.5) Cardiac Markers Test 08/24/24 18:15 B-Type Natriuretic Peptide 379.13 pg/mL (0-100) LFT Test 08/24/24 18:15 08/25/24 05:37 Alanine Aminotransferase (ALT) 30 U/L (7-40) 26 U/L (7-40) Alkaline Phosphatase 74 U/L (46-116) 65 U/L (46-116) Aspartate Amino Transferase (AST) 71 U/L (13-40) H 66 U/L (13-40) H Total Bilirubin 0.5 mg/dL (0.2-1.0) 0.3 mg/dL (0.2-1.0) HgA1c, TSH Test 08/24/24 23:13 Thyroid Stimulating Hormone (TSH) 1.26 uIU/mL (0.55-4.78) Urinalysis Test 08/24/24 20:55 Urine Color Yellow (Yellow) Urine Clarity Clear (Clear) Urine pH 7.5 (5.0-9.0) Urine Specific [place] 1.024 (1.001-1.035) Urine Protein 1+ (Negative) H Urine Ketones 1+ (Negative) H Urine Blood 1+ /uL (Negative) H Urine Nitrite Negative (Negative) Urine Bilirubin Negative (Negative) Urine Urobilinogen 2 mg/dL (Negative) H Urine Leukocyte Esterase Negative /uL (Negative) Urine RBC 22 /hpf (0 - 4) Urine Microscopic WBC 1 /HPF (0-5) Urine Squamous Epithelial Cells Few /hpf (<5) Urine Bacteria None seen /hpf (None Seen) Urine Glucose Normal mg/dL (Normal) Microbiology Microbiology Date/Time Source Procedure Growth Status 08/24/24 20:55 Urine - [place] Urine Culture - Preliminary Resulted Labs and/or images reviewed: Labs reviewed by me, Image(s) reviewed by me Assessment/Plan Assessment/Plan Impression: -mechanical fall -rule out syncope -dementia -cachexia -normocytic anemia Plan: Events: Patient was found to be combative, agitated. Restarted home benzodiazepines as well as p.r.n. Haldol -echocardiogram pending -CT scan of the head: Reviewed, negative -continue Namenda -PUD, DVT prophylaxis -restart home meds Total time spent with patient discussing and formulating plan of care: 35 minutes. This medical document was created using an electronic medical record system with [employer] dictation system. Although this document has been carefully reviewed, there may still be some phonetic and typographical errors. These areas are purely typographical due to imperfections of the software programs, and do not reflect any compromise in the patient's medical care. Plan discussed with: Patient, Other (RN) My Orders RN Orders - MAGDY SINGH NP Procedure Category Date Status Time Alprazolam Tablet PHA 08/25/24 In Process (Xanax Tablet) 10:[address] Tablet PHA 08/26/24 In Process (Depakote "Dr" Tabl 10:00 Donepezil Tablet PHA 08/26/24 In Process (Aricept Tablet) 10:00 Quetiapine Fumarate PHA 08/25/24 In Process Tablet (Seroquel Tab 10:45 Trazodone Hcl PHA 08/25/24 In Process (Desyrel) 22:00 Haloperidol Lactate PHA 08/25/24 In Process Injection (Haldol) 14:30 Regular Diet DIET 08/25/24 Transmitted Dinner Date of Service: Aug 25, 2024 Billing Provider: MAGDY SINGH NP Common Visit Codes: [id number] INP/OBS CARE(HIGH) MAGDY SINGH NP Aug 25, 2024 15:45
[2024-08-25] MEDS: HALOPERIDOL LACTATE 5 MG/ML INJ VIAL IV PRN (16:20)
[2024-08-25] MEDS: traZODone HCL 50 MG TAB PO SCH (22:10)
[2024-08-26] VITALS (7 sets, daily range): BP systolic 96–124; BP diastolic 51–72; PULSE 87–100; RESP 17–20; TEMP 98–98.5; O2SAT 90–96
[2024-08-26] MEDS: DONEPEZIL HYDROCHLORIDE 5 MG TAB PO SCH (08:49)
--- NOTE | 2024-08-26 14:01 | DVHPN2 ---
Subjective Patient denies any symptoms. Somewhat agitated. Reviewed: Care Plan, H&P, Labs, Medications Changes from previous H/P or p: No Changes General: Per HPI Objective Vitals Vital Signs Date Time Temp Pulse Resp B/P (MAP) Pulse Ox O2 Delivery O2 Flow Rate FiO2 08/26/24 13:46 98.0 88 20 108/72 (84) 96 98.0 08/26/24 07:30 Room Air* 0 21 Intake/Output Intake and Output 08/26/24 07:00 Intake Total 870 ml Output Total 300 ml Balance 570 ml Intake Oral 320 ml IV Total 550 ml Output Urine Total 300 ml # Bowel Movements 3 General Appearance: Alert, Cooperative, Other (Oriented to name) HEENT: Atraumatic, PERRLA, Other (Facial trauma) Cardiovascular: Regular rate, Normal S1, Normal S2 Abdomen: Normal bowel sounds, Soft, No tenderness Neuro: Normal gait, Normal speech Skin: Dry, Intact Psych/Mental Status: Mental status NL, Mood NL Medications Current Medications Medications Dose Ordered Sig/Ijeoma Route Start Time Stop Time Status Last Admin Dose Admin Sodium Chloride 10 ml Q8HR IV 08/25/24 06:00 08/26/24 05:32 10 ML Acetaminophen 650 mg Q6HP PRN PO 08/24/24 22:45 Nitroglycerin 0.4 mg Q5MINP PRN SL 08/24/24 22:45 Morphine Sulfate 2 mg Q30M PRN IV 08/24/24 22:45 Pantoprazole Sodium 40 mg DAILY IV 08/25/24 10:00 08/26/24 08:49 40 MG Sodium Chloride 1,000 ml @ 120 mls/hr Q8H20M IV 08/24/24 23:15 08/26/24 08:48 120 MLS/HR Ceftriaxone Sodium 50 ml @ 100 mls/hr DAILY@09 IV 08/25/24 09:00 08/26/24 08:49 100 MLS/HR Alprazolam 0.25 mg Q12HP PRN PO 08/25/24 10:45 08/25/24 11:30 0.25 MG Divalproex Sodium 250 mg DAILY PO 08/26/24 10:00 08/26/24 08:49 250 MG Donepezil HCl 5 mg DAILY PO 08/26/24 10:00 08/26/24 08:49 5 MG Quetiapine Fumarate 25 mg DAILY PO 08/25/24 10:45 08/26/24 08:55 25 MG Trazodone HCl 50 mg HS PO 08/25/24 22:00 08/25/24 22:10 50 MG Haloperidol Lactate 2 mg [id number] PRN IV 08/25/24 14:30 08/25/24 16:20 2 MG Laboratory Results Laboratory Tests 08/25/24 05:37 Urinalysis Test 08/24/24 20:55 Urine Color Yellow (Yellow) Urine Clarity Clear (Clear) Urine pH 7.5 (5.0-9.0) Urine Specific [place] 1.024 (1.001-1.035) Urine Protein 1+ (Negative) H Urine Ketones 1+ (Negative) H Urine Blood 1+ /uL (Negative) H Urine Nitrite Negative (Negative) Urine Bilirubin Negative (Negative) Urine Urobilinogen 2 mg/dL (Negative) H Urine Leukocyte Esterase Negative /uL (Negative) Urine RBC 22 /hpf (0 - 4) Urine Microscopic WBC 1 /HPF (0-5) Urine Squamous Epithelial Cells Few /hpf (<5) Urine Bacteria None seen /hpf (None Seen) Urine Glucose Normal mg/dL (Normal) Microbiology Microbiology Date/Time Source Procedure Growth Status 08/24/24 20:55 Urine - [place] Urine Culture - Preliminary Resulted 08/24/24 18:15 Blood Blood Culture - Preliminary NO GROWTH AFTER 24 HOURS OF INCUBATION. Resulted Labs and/or images reviewed: Labs reviewed by me, Image(s) reviewed by me Assessment/Plan Assessment/Plan Impression: -mechanical fall -rule out syncope -dementia -cachexia -normocytic anemia Plan: Events: Patient was assessed sitting in the chair. Continues to have confusion. -social service consultation for DC planning back with hospice. Need to initiate contact with family who makes decisions for patient. -echocardiogram pending -CT scan of the head: Reviewed, negative -continue Namenda -PUD, DVT prophylaxis Total time spent with patient discussing and formulating plan of care: 35 minutes. This medical document was created using an electronic medical record system with [employer] system. Although this document has been carefully reviewed, there may still be some phonetic and typographical errors. These areas are purely typographical due to imperfections of the software programs, and do not reflect any compromise in the patient's medical care. Plan discussed with: Patient, Other (RN) My Orders Orders - MAGDY SINGH NP Procedure Category Date Status Time Haloperidol Lactate PHA 08/25/24 In Process Injection (Haldol) 14:30 Regular Diet DIET 08/25/24 Transmitted Dinner * Senior [employer] CONS 08/26/24 Verified Consult Date of Service: Aug 26, 2024 Billing Provider: MAGDY SINGH NP Common Visit Codes: [id number] INP/OBS CARE(HIGH) MAGDY SINGH NP Aug 26, 2024 14:01
--- NOTE | 2024-08-26 15:56 | DVHDS2 ---
Discharge Summary Date of Admission Aug 24, 2024 at 22:45 Date of Discharge: Aug 26, 2024 Admitting Diagnosis Metabolic encephalopathy Labs/Diagnostic Data: Laboratory Results Test 08/25/24 05:37 08/24/24 23:25 08/24/24 23:13 08/24/24 21:42 White Blood Count 8.9 10^3/uL (4.4-10.8) Red Blood Count 3.23 10^6/uL (4.0-5.20) Hemoglobin 9.8 g/dL (12.2-16.2) Hematocrit 29.1 % (36.0-46.0) Mean Corpuscular Volume 89.9 fL (80.0-100.0) Mean Corpuscular Hemoglobin 30.3 pg (28.0-32.0) Mean Corpuscular Hemoglobin Concent 33.7 g/dL (32.0-36.0) Red Cell Distribution Width 16.9 % (11.8-14.3) Platelet Count 131 10^3/uL (140-450) Mean Platelet Volume 7.9 fL (6.9-10.8) Neutrophils (%) (Auto) 81.3 % (37.0-80.0) Lymphocytes (%) (Auto) 4.8 % (10.0-50.0) Monocytes (%) (Auto) 13.6 % (0.0-12.0) Eosinophils (%) (Auto) 0.1 % (0.0-7.0) Basophils (%) (Auto) 0.2 % (0.0-2.0) Neutrophils # (Auto) 7.2 10 ^3/uL (1.6-8.6) Lymphocytes # (Auto) 0.4 10 ^3/uL (0.4-5.4) Monocytes # (Auto) 1.2 10 ^3/uL (0-1.3) Eosinophils # (Auto) 0 10 ^3/uL (0-0.8) Basophils # (Auto) 0 10 ^3/uL (0-0.2) Nucleated Red Blood Cells 0.0 % Sodium Level 139 mmol/L (136-145) Potassium Level 3.8 mmol/L (3.5-5.1) Chloride Level 104 mmol/L (98-107) Carbon Dioxide Level 26 mmol/L (20-31) Anion Gap 9 (5-15) Blood Urea Nitrogen 22 mg/dL (9-23) Creatinine 0.85 mg/dL (0.550-1.02) Glomerular Filtration Rate Calc 71 mL/min (>90) BUN/Creatinine Ratio 25.9 (10.0-20.0) Serum Glucose 85 mg/dL (74-106) Calcium Level 9.2 mg/dL (8.7-10.4) Total Bilirubin 0.3 mg/dL (0.2-1.0) Aspartate Amino Transferase (AST) 66 U/L (13-40) Alanine Aminotransferase (ALT) 26 U/L (7-40) Alkaline Phosphatase 65 U/L (46-116) Total Protein 6.5 g/dL (5.7-8.2) Albumin 3.8 g/dL (3.2-4.8) Influenza Type A Antigen Negative (Negative) Influenza Type B Antigen Negative (Negative) SARS-CoV-2 Antigen (Rapid) Negative (NEGATIVE) Prothrombin Time 11.8 sec (9.3-11.8) Prothrombin Time INR 1.13 (0.9-1.15) Activated Partial Thromboplast Time 33.2 SEC (24.5-34.5) Lactic Acid Level 1.0 mmol/L (0.4-2.0) Magnesium Level 2.0 mg/dL (1.6-2.6) Ammonia 13 umol/L (11-32) Thyroid Stimulating Hormone (TSH) 1.26 uIU/mL (0.55-4.78) Plasma/Serum Blood Alcohol < 3.0 mg/dL (<10) POC Glucose 113 mg/dl (70-106) Test 08/24/24 21:16 08/24/24 20:55 08/24/24 18:15 Troponin I High Sensitivity 8 ng/L (</=34) Urine Color Yellow (Yellow) Urine Clarity Clear (Clear) Urine pH 7.5 (5.0-9.0) Urine Specific [place] 1.024 (1.001-1.035) Urine Protein 1+ (Negative) Urine Ketones 1+ (Negative) Urine Blood 1+ /uL (Negative) Urine Nitrite Negative (Negative) Urine Bilirubin Negative (Negative) Urine Urobilinogen 2 mg/dL (Negative) Urine Leukocyte Esterase Negative /uL (Negative) Urine RBC 22 /hpf (0 - 4) Urine Microscopic WBC 1 /HPF (0-5) Urine Squamous Epithelial Cells Few /hpf (<5) Urine Bacteria None seen /hpf (None Seen) Urine Glucose Normal mg/dL (Normal) Urine Opiates Screen Pos (NEGATIVE) Urine Fentanyl Screen Neg (NEGATIVE) Urine Barbiturates Screen Neg (NEGATIVE) Urine Phencyclidine Screen Neg (NEGATIVE) Urine Amphetamines Screen Neg (NEGATIVE) Urine Benzodiazepines Screen Pos (NEGATIVE) Urine Cocaine Screen Neg (NEGATIVE) Urine Cannabinoids Screen Neg (NEGATIVE) Creatine Kinase 2407 U/L (34-145) B-Type Natriuretic Peptide 379.13 pg/mL (0-100) Other Laboratory Tests 08/25/24 05:37 Brief Hx & Hospital Course: History of Present Illness KALIN CRAMER a 79-year-old female with a PMH of Alzheimer's dementia presented to the ED with the chief complaints of altered level of sensorium. Patient is poor historian, history obtained from EMS, reported patient is generally always altered due to dementia but today patient family found patient was on the floor, called 911. The reported patient is more altered than usual which prompted them to call EMS. Course of hospitalization: Patient had CT scan of the head, neck, carotid ultrasound, echocardiogram which were unremarkable. She was given adequate IV hydration. Cultures have been negative thus far. She has been out of bed to a chair. Patient was less agitated and able to follow some commands. Home medication has been restarted for her dementia. Patient will be discharged back on hospice. Family was notified by case management. Physical examination General: Alert and Oriented x1. No acute distress. Well-nourished. Eyes: EOMI. Anicteric. Trauma around left eye and forehead HENT: Moist mucous membranes. Lungs: Clear to auscultation bilaterally. No accessory muscle use. Cardiovascular: Regular rate and rhythm. No murmur. No JVD. Abdomen: Soft, non-tender and non-distended. No palpable masses. Extremities: No edema. Non-tender. Skin: No rashes or lesions. Warm. Neurologic: No focal neurological deficits. CN II-XII grossly intact, but not individually tested. Psychiatric: Cooperative. Appropriate mood and affect. Total time spent with patient discussing and formulating plan of care: 35 minutes. This medical document was created using an electronic medical record system with [employer] dictation system. Although this document has been carefully reviewed, there may still be some phonetic and typographical errors. These areas are purely typographical due to imperfections of the software programs, and do not reflect any compromise in the patient's medical care. Condition at Discharge: Poor Final Diagnosis/Problems List Mechanical fall Metabolic encephalopathy secondary to prescribed controlled substances Secondary diagnosis: -mechanical fall -ruled out syncope -dementia -cachexia -normocytic anemia Discharge Disposition: Hospice - Home Discharge Instruct/Medications Diet: Regular Activity: No Restrictions, As Tolerated Follow Up/Referral: Follow up with PCP at next available appointment Medications: Continue all home medications 36 Discharge Statement: "Patient was advised to return to the ER or call 911 if any headaches, dizziness, shortness of breath, chest pain, abdominal pain, bleeding, fevers, or worsening of medical condition. Patient was counseled about treatment plan, medications, possible side effects, patientverbalized understanding. All questions were answered to the best of my ability. This discharge took greater then 30 minutes in planning, reviewing documentation, counseling the patient, and discussing with other team members." ASSESSMENT ASSESSMENT Assessment Mechanical fall Metabolic encephalopathy secondary to prescribed controlled substances Date of Service: Aug 26, 2024 Billing Provider: MAGDY SINGH NP Common Visit Codes: 83445-GCN/OBS DISCH DAY >30min MAGDY SINGH NP Aug 26, 2024 15:56
--- NOTE | 2024-08-28 13:23 | DVHSR ---
APPROVED REPORT EXAM: Two-dimensional and M-mode echocardiogram with Doppler and color Doppler. Blood Pressure: 100/51 mmHg INDICATION CHF? RISK FACTORS Height: 64, Weight: 115 DIMENSIONS LVDd3.7 (3.8-5.7cm)LA (2D)3.4 (1.9-4.0cm)Aortic Root3.3 (2.0-3.7cm) LVDs2.2 (2.5-4.0cm)LA (MM) (1.9-4.0cm)Aortic Cusp Exc1.5 (1.5-2.0cm) EF (%) 70.0 (55-70%)Rt. Atrium3.8 (1.9-4.0cm)Asc. Aorta cm Mitral Valve MitralMitral Stenosis E wave0.77m/sMV Mean GR.mmHg A wave0.68m/sMV Peak GR.mmHg E/A ratio1.12D MVAcm2 DECEL [id number] 1/2 [id number] IVRTmsDop MVA2.99cm2 Aortic Valve Aortic ValveAortic Stenosis V11.25m/Lisa Mean GR.4mmHg V21.25m/Lisa Peak GR.6mmHg LVOT Diameter1.8 (1.8-2.4cm)Doppler AVA2.54cm2 Tricuspid Valve TR Velocity2.68m/s [id number] Other Information Technically limited study due to patient combative. Patient laying flat on her back during exam. Conclusion Technically good study. Sinus rhythm. Off axis views. Mild aortic root enlargement. Normal chamber sizes. Valves are normal. EF of 60% with normal RV function. Dopplers unremarkable. No pericardial effusion masses or vegetations
== END 2024-08-26 18:18 | disposition hospice, home (50) | DRG 564 ==
LOC: EDBD 16:28 → EDSEX 16:28 → ER 16:28 → EDUNIT# 16:28 → OVERFLOW 22:45 → TELE-WESTW 23:33
PROVIDERS: ADMIT Nurse Practitioner Acute Care; ATTEND Nurse Practitioner Acute Care
PROC: 05H933Z Insertion of Infusion Device into Right Brachial Vein, Percutaneous Approach (ICD-10-PCS; principal; 2024-08-25)
PROC: B54MZZA Ultrasonography of Right Upper Extremity Veins, Guidance (ICD-10-PCS; 2024-08-25)
DX: T79.6XXA Traumatic ischemia of muscle, initial encounter (principal); G92.8 Other toxic encephalopathy; R64 Cachexia; D64.9 Anemia, unspecified; F02.80 Dementia in other diseases classified elsewhere, unspecified severity, without behavioral disturbance, psychotic disturbance, mood disturbance, and anxiety; Z20.822 Contact with and (suspected) exposure to COVID-19; G30.9 Alzheimer's disease, unspecified; T50.995A Adverse effect of other drugs, medicaments and biological substances, initial encounter; Y92.89 Other specified places as the place of occurrence of the external cause; Z68.21 Body mass index [BMI] 21.0-21.9, adult
CPT/HCPCS: 36415; 70450; 70486; 71045; 72125; 80053; 80307; 80320; 81001; 82140; 82550; 82962; 83605; 83735; 83880; 84443; 84484; 85025; 85610; 85730; 87040; 87086; 87088; 87186; 87426; 87804; 93005; 93306; 93970; 97110; 97116; 97163; 97530; G0378; J2470

== ENCOUNTER 2024-09-21 01:25 | Inpatient (IN) | payer OTHER, MEDICARE, MEDICAID ==
[~2024-09-21] VITALS: Ht 165.1 cm; Wt 62.3 kg
[2024-09-21] VITALS (44 sets, daily range): BP systolic 75–146; BP diastolic 56–91; PULSE 61–102; RESP 14–25; TEMP 95.4–99.3; O2SAT 95–100
[~2024-09-21 01:25] MED LIST: ALPR0.255; DIVA1TAB58; DONE5TAB80; QUET1TAB11; TRAZ-227
--- NOTE | 2024-09-21 01:49 | ED.PDOC ---
Altered Mental Status HPI Comments 79-year-old female who came to ER by EMS for altered level of consciousness. Per EMS, [facility], patient is bed-bound, and has history of hypertension and dementia. Was noted to be more altered than usual, unresponsive to verbal stimuli and febrile at 101 F. Noted also worsening of decubitus ulcer. Chief Complaint: ALOC Time Seen by MD: 01:55 Reviewed Notes: Sample Carrier Notes Allergies: Coded Allergies: NO KNOWN ALLERGIES (Unverified , 09/21/24) Information Source: Emergency Med Personnel Mode of Arrival: EMS Severity: Unable to Care for Self, Unresponsive Timing: Hours Duration: Since onset Prehospital treatment: Accucheck Quality: Decreased Alertness, Change in Behavior, Confusion Recent: Fever History of: Dementia Past Medical History PAST MEDICAL HISTORY: Dementia, HTN Surgical History: Pt Confused SUPERVISOR WOUND History: Pt Confused Family History Family History: Pt Confused Social History Smoker: Pt Confused Alcohol: Pt Confused Drugs: Pt Confused Lives In: Assisted Care Unable to Obtain due to: Altered Mental Status, Dementia Physical Exam General Appearance: No Apparent Distress, Normal HEENT: Normal ENT Inspection, Pharynx Normal, TMs Normal Neck: Full Range of Motion, Non-Tender, Normal, Normal Inspection Respiratory: Chest Non-Tender, Lungs Clear, No Accessory Muscle Use, No Respiratory Distress, Normal Breath Sounds Cardiovascular: No Edema, No JVD, No Murmur, No Gallop, Normal Peripheral Pulses, Regular Rate/Rhythm Breast Exam: Deferred Gastrointestinal: No Organomegaly, Non Tender, No Pulsatile Mass, Normal Bowel Sounds, Soft Genitalia: Deferred Pelvic: Deferred Rectal: Deferred Extremities: No calf tenderness, Normal capillary refill, Normal inspection, Normal range of motion, Non-tender, No pedal edema Musculoskeletal : Apperance: Normal Neurologic: Alert, chief of staff doctor II-XII nml as Tested, No Motor Deficits, Normal Affect, Normal Mood, No Sensory Deficits Cerebellar Function: Normal Reflexes: Normal Skin: Dry, Normal Color, Warm Lymphatic: No Adenopathy Was a procedure done? Was a procedure done?: Yes Sedation Sedation?: Yes Informed consent obtained: Yes Sedation start time: 02:10 Sedation end time: 02:40 Sedation total time: Patient is still sedated Central Line Recorder of insertion practice: Observer Occupation of lean consultant: Attending Physician Indication: Inability to obtain IV, Suspected infection Room prepared for procedure: Yes Silo Tender performed hand hygien: Yes Maximal sterile barrier precau: Mask/Eye shield, Sterile gown, Cap, Sterlie gloves, Large sterlie drape Skin Preparation: Providine iodine Skin preparation completely dr: Yes Insertion site: Right Central line catheter type: Tunneled- not dialysis Number of lumens: 3 Central line exchanged over a: Yes Antiseptic ointment applied to: Yes Post Assessment: Chest X-Ray Informed consent obtained: Yes Risks/benefits/alt described: Yes Intubation Indication: Altered Mental Status Prep: Preoxygenation Pretreated with: Sedation Medicated with: Succinylcholine, Other (Etomidate) Intubation Approach: Orotracheal Intubation size: cm (8) Informed consent obtained: Yes Risks/benefits/alt described: Yes Differential Diagnosis (ALOC) Differential Diagnosis: Encephalopathy, Hypoxemia, Seizure, CVA, Other (Zandra ia) X-Ray, Labs, Meds, VS Vital Signs Date Time Temp Pulse Resp B/P (MAP) Pulse Ox O2 Delivery O2 Flow Rate FiO2 09/21/24 02:36 146/91 09/21/24 02:30 86/59 09/21/24 02:15 89 16 96/65 (75) 100 100 09/21/24 02:11 107/62 09/21/24 02:10 97 22 107/62 (77) 98 09/21/24 01:35 108 09/21/24 01:25 97.3 108 10 138/74 (95) 99 97.3 Lab Test 09/21/24 02:43 09/21/24 01:59 Range/Units Troponin I High Sensitivity 44 *H 44 *H </=34 ng/L White Blood Count 7.5 4.4-10.8 10^3/uL Red Blood Count 3.95 L 4.0-5.20 10^6/uL Hemoglobin 12.1 L 12.2-16.2 g/dL Hematocrit 38.4 36.0-46.0 % Mean Corpuscular Volume 97.2 80.0-100.0 fL Mean Corpuscular Hemoglobin 30.6 28.0-32.0 pg Mean Corpuscular Hemoglobin Concent 31.5 L 32.0-36.0 g/dL Red Cell Distribution Width 17.3 H 11.8-14.3 % Platelet Count 217 140-450 10^3/uL Mean Platelet Volume 8.8 6.9-10.8 fL Neutrophils (%) (Auto) 76.2 37.0-80.0 % Lymphocytes (%) (Auto) 5.8 L 10.0-50.0 % Monocytes (%) (Auto) 17.7 H 0.0-12.0 % Eosinophils (%) (Auto) 0.1 0.0-7.0 % Basophils (%) (Auto) 0.2 0.0-2.0 % Neutrophils # (Auto) 5.7 1.6-8.6 10 ^3/uL Lymphocytes # (Auto) 0.4 0.4-5.4 10 ^3/uL Monocytes # (Auto) 1.3 0-1.3 10 ^3/uL Eosinophils # (Auto) 0 0-0.8 10 ^3/uL Basophils # (Auto) 0 0-0.2 10 ^3/uL Nucleated Red Blood Cells 0.1 % Sodium Level 154 H 136-145 mmol/L Potassium Level 5.8 *H 3.5-5.1 mmol/L Chloride Level 117 H 98-107 mmol/L Carbon Dioxide Level 25 20-31 mmol/L Anion Gap 12 5-15 Blood Urea Nitrogen 121 *H 9-23 mg/dL Creatinine 1.92 H 0.550-1.02 mg/dL Glomerular Filtration Rate Calc 27 >90 mL/min BUN/Creatinine Ratio 63.0 H 10.0-20.0 Serum Glucose 180 H 74-106 mg/dL Lactic Acid Level 2.9 *H 0.4-2.0 mmol/L Calcium Level 9.4 8.7-10.4 mg/dL Total Bilirubin 0.6 0.2-1.0 mg/dL Aspartate Amino Transferase (AST) 48 H 13-40 U/L Alanine Aminotransferase (ALT) 50 H 7-40 U/L Alkaline Phosphatase 97 46-116 U/L Total Protein 7.0 5.7-8.2 g/dL Albumin 3.7 3.2-4.8 g/dL Current Medications Medications (Trade) Dose Ordered Sig/Ijeoma Route Start Time Stop Time Status Last Admin Sodium Chloride 1,000 ml @ 1,000 mls/hr Q1H ONCE IV 09/21/24 01:45 09/21/24 02:44 DC 09/21/24 01:55 Ondansetron HCl (Zofran) 4 mg ONCE ONCE IV 09/21/24 01:45 09/21/24 01:46 DC 09/21/24 03:17 Vancomycin HCl 200 ml @ 200 mls/hr ONCE ONCE IV 09/21/24 01:45 09/21/24 02:44 DC 09/21/24 03:19 Etomidate 20 mg ONCE ONCE IV 09/21/24 02:30 09/21/24 02:31 DC 09/21/24 02:10 Rocuronium [place] 100 mg ONCE ONCE IV 09/21/24 02:30 09/21/24 02:31 DC 09/21/24 02:11 Propofol 100 ml @ 1.5 mls/hr Q24H IV 09/21/24 02:30 09/21/24 02:36 Norepinephrine Bitartrate 250 ml @ 3.75 mls/hr Q24H IV 09/21/24 02:30 09/21/24 02:30 Time of 1ST Reevaluation: 01:48 Reevaluation 1ST: Unchanged Patient Education/Counseling: Diagnosis, Treatment Family Education/Counseling: No Family Present Departure 1 Departure Time of Disposition: 03:32 (Patient presented unresponsive and in septic shock. Called patient's home nurse who told me that patient is confirmed full code. Patient was emergently intubated central line placed. Patient cover with antibiotics and given IV fluids. Patient is hyperkalemic likely in the setting of volume concentration. We will admit patient to ICU for further workup) Impression: Primary Impression: Sepsis Qualified Codes: A41.9 - Sepsis, unspecified organism; R65.21 - Severe sepsis with septic shock; G93.41 - Metabolic encephalopathy Additional Impressions: Metabolic encephalopathy Hyperkalemia Sacral decubitus ulcer Qualified Codes: L89.154 - Pressure ulcer of sacral region, stage 4 Disposition: 09 ADMITTED INPATIENT Admit to: ICU Condition: Critical Critical Care Note Critical Care Time?: Yes (35 min-critical care time only) Critical care comment: Altered level of consciousness, sepsis Authorized and Performed by: Regine Centeno MD Total critical care time: Approximately 149 minutes Due to a high probability of clinically significant, life threatening deterioration, the patient required my highest level of preparedness to intervene emergently and I personally spent this critical care time directly and personally managing the patient. This critical care time included obtaining a history; examining the patient; pulse oximetry; ordering and review of studies; arranging urgent treatment with development of a management plan; evaluation of patient's response to treatment; frequent reassessment; and, discussions with other providers. This critical care time was performed to assess and manage the high probability of imminent, life-threatening deterioration that could result in multi-organ failure. It was exclusive of separately billable procedures and treating other patients and teaching time. Please see my other sections and the rest of the note for further information on patient assessment and treatment. Stability Stability form required: No Heart Score Heart Score: Heart Score Response (Comments) Value History N/A 0 EKG N/A 0 Age N/A 0 Risk Factors N/A 0 Troponin N/A 0 Total 0 I personally scribed for REGINE CENTENO [facility] on 09/21/24 at 01:49. Electronically submitted by Justin Lopez ([facility] I personally scribed for REGINE CENTENO MD ([facility] on 09/21/24 at 01:55. Electronically submitted by Justin Lopez ([facility] I personally scribed for REGINE CENTENO MD ([facility] on 09/21/24 at 02:12. Electronically submitted by Justin Lopez ([facility] I personally scribed for REGINE CENTENO MD ([facility] on 09/21/24 at 02:34. Electronically submitted by Justin Lopez ([facility]). REGINE CENTENO MD Sep 21, 2024 01:49
[2024-09-21] MEDS: SODIUM CHLORIDE 0.9% 1,000 ML IV ONE ×2 (01:55→03:45)
[2024-09-21 02:09] LABS: Basophils # (auto) 0 10 ^3/uL (0-0.2); Basophils % (auto) 0.2 % (0.0-2.0); Eosinophils # (auto) 0 10 ^3/uL (0-0.8); Eosinophils % (auto) 0.1 % (0.0-7.0); Hematocrit 38.4 % (36.0-46.0); Hemoglobin 12.1 g/dL (12.2-16.2); Lymphocytes # (auto) 0.4 10 ^3/uL (0.4-5.4); Lymphocytes % (auto) 5.8 % (10.0-50.0); Mean Corpuscular Hemoglobin 30.6 pg (28.0-32.0); Mean Corpuscular Hgb Conc. 31.5 g/dL (32.0-36.0); Mean Corpuscular Volume 97.2 fL (80.0-100.0); Monocytes # (auto) 1.3 10 ^3/uL (0-1.3); Monocytes % (auto) 17.7 % (0.0-12.0); Neutrophils # (auto) 5.7 10 ^3/uL (1.6-8.6); Neutrophils % (auto) 76.2 % (37.0-80.0); Nucleated Red Blood Cells % 0.1 %; Platelet Count (auto) 217 10^3/uL (140-450); Red Blood Cells 3.95 10^6/uL (4.0-5.20); Red Cell Distribution Width 17.3 % (11.8-14.3); White Blood Cell 7.5 10^3/uL (4.4-10.8)
[2024-09-21] MEDS: ETOMIDATE (2MG/ML) 20ML VIAL IV ONE ×2 (02:10→02:24)
[2024-09-21] MEDS: ROCURONIUM 10MG/ML 10ML VIAL IV ONE ×2 (02:11→02:24)
[2024-09-21 02:30] LABS: Albumin 3.7 g/dL (3.2-4.8); Alkaline Phosphatase 97 U/L (46-116); Anion Gap 12 (5-15); Calcium 9.4 mg/dL (8.7-10.4); Carbon Dioxide 25 mmol/L (20-31)
[2024-09-21] MEDS: NOREPINEPHRINE 8 MG/250ML KIT 250 ML IV SCH (02:30)
[2024-09-21 02:31] LABS: Bilirubin, Total 0.6 mg/dL (0.2-1.0)
[2024-09-21] MEDS: PROPOFOL 100 ML IV SCH (02:36)
--- NOTE | 2024-09-21 02:41 | DVH ---
CHEST RADIOGRAPH Indication: POST INTUBATION Technique: Single frontal view of the chest was obtained COMPARISON: None FINDINGS: Lines and Tubes: Endotracheal tube terminates approximately 2.8 cm above the level of the mayelin. Ent dom tube terminates within the left upper quadrant presumably within the gastric lumen. Lungs: Clear Pleura: No effusion. No pneumothorax. Cardiomediastinal contours: Unremarkable Bones: Unremarkable IMPRESSION: 1. No acute disease. 2. Endotracheal and enteric tubes in satisfactory position.
[2024-09-21] MEDS: ONDANSETRON HCL 4 MG/2 ML VIAL IV ONE (03:17)
[2024-09-21] MEDS: VANCOMYCIN 1GM/250ML KIT 200 ML IV ONE (03:19)
[2024-09-21 03:21] LABS: Alanine Aminotransferase 50 U/L (7-40); Aspartate Aminotransferase 48 U/L (13-40); Blood Urea Nitrogen 121 mg/dL (9-23); Chloride 117 mmol/L (98-107); Glucose 180 mg/dL (74-106); Lactic Acid w/Reflex 2.9 mmol/L (0.4-2.0); Potassium 5.8 mmol/L (3.5-5.1); Sodium 154 mmol/L (136-145)
[2024-09-21 03:45] LABS: Base Excess -1.9 mmol/L (-2.0-3.0)
[2024-09-21] MEDS: CALCIUM GLUC 1,000mg/50ml-NS 50 ML IV SCH (04:14)
[2024-09-21] MEDS ORDERED: IBUPROFEN 400 MG TAB PO PRN (04:15)
[2024-09-21] MEDS: DEXTROSE (50%) 50ML SYRG IV ONE (04:15)
[2024-09-21] MEDS: SODIUM BICARB 8.4% 50Meq/50ml SYR Vial IV ONE (04:15)
[2024-09-21] MEDS ORDERED: ONDANSETRON HCL 4 MG/2 ML VIAL IV PRN (04:15)
[2024-09-21] MEDS ORDERED: hydrALAZINE HCL 20 MG/ML VL IV PRN (04:15)
[2024-09-21] MEDS: InsuLIN REG 1unit/0.01ml Soln (100units/ml) IV ONE (04:16)
[2024-09-21] MEDS: CEFEPIME 2GM/50ML NS 50 ML IV ONE (04:48)
[2024-09-21 05:26] LABS: Basophils # (auto) 0 10 ^3/uL (0-0.2); Basophils % (auto) 0.1 % (0.0-2.0); Eosinophils # (auto) 0 10 ^3/uL (0-0.8); Hematocrit 30.4 % (36.0-46.0); Hemoglobin 10.1 g/dL (12.2-16.2); Lymphocytes # (auto) 0.6 10 ^3/uL (0.4-5.4); Lymphocytes % (auto) 8.8 % (10.0-50.0); Mean Corpuscular Hemoglobin 31.4 pg (28.0-32.0); Mean Corpuscular Hgb Conc. 33.1 g/dL (32.0-36.0); Mean Corpuscular Volume 94.6 fL (80.0-100.0); Monocytes # (auto) 1.1 10 ^3/uL (0-1.3); Monocytes % (auto) 17.2 % (0.0-12.0); Neutrophils # (auto) 4.9 10 ^3/uL (1.6-8.6); Neutrophils % (auto) 73.9 % (37.0-80.0); Platelet Count (auto) 171 10^3/uL (140-450); Red Blood Cells 3.21 10^6/uL (4.0-5.20); Red Cell Distribution Width 16.6 % (11.8-14.3); White Blood Cell 6.6 10^3/uL (4.4-10.8)
[2024-09-21 05:44] LABS: Alanine Aminotransferase 38 U/L (7-40); Alkaline Phosphatase 81 U/L (46-116); Anion Gap 13 (5-15); BUN/Creatinine Ratio 60.3 (10.0-20.0); Bilirubin, Total 0.6 mg/dL (0.2-1.0); Carbon Dioxide 26 mmol/L (20-31); Potassium 4.2 mmol/L (3.5-5.1); Total Protein 6.1 g/dL (5.7-8.2)
[2024-09-21 05:46] LABS: Albumin 3.1 g/dL (3.2-4.8); Aspartate Aminotransferase 43 U/L (13-40); Calcium 8.1 mg/dL (8.7-10.4); Chloride 118 mmol/L (98-107); Glucose 293 mg/dL (74-106); Sodium 157 mmol/L (136-145)
[2024-09-21 05:47] LABS: Blood Urea Nitrogen 91 mg/dL (9-23)
[2024-09-21] MEDS: SODIUM CHLOR 0.9% PF (SALINE LOCK) 10ML VIAL/SYR IV SCH (05:58)
[2024-09-21] MEDS ORDERED: NITROGLYCERIN 0.4 MG SL TAB SL PRN (06:00)
[2024-09-21] MEDS ORDERED: MORPHINE SULFATE INJ 2 MG/ml SYRG IV PRN (06:00)
[2024-09-21] MEDS: FREE WATER GT SCH (06:00)
--- NOTE | 2024-09-21 06:34 | DVHHP2 ---
History of Present Illness Reason for Visit: Sepsis, unspecified organism History of Present Illness The patient is a 79-year-old female bed-bound with past medical history of dementia and hypertension who presented to [facility] ED for evaluation of altered level of consciousness. Patient was noted by staff member at board and care facility altered than usual, unresponsive to verbal stimuli, worsening decubitus ulcer, elevated temperature at 101 F, getting worse that prompted this visit. Patient was seen and evaluated in the ED lethargic, hypoxic, and subsequently intubated. Laboratory data shows WBC 7.5, platelets 217, sodium 154, potassium 5.8, BUN 121, creatinine 1.92, GFR 27, glucose 180, lactic acid 2.9, AST 48, ALT 50, troponin 44, blood pressure 146/91, heart rate 89, temperature trending down to 98.8 F, O2 saturation 97% on ventilator. Please see medication orders section in the computer. On my assessment, patient is fully intubated, no diaphoresis, no vomiting, no chills. Patient was admitted for further evaluation and medical management. Past Medical History Dementia, HTN Past Surgical History Unobtainable Family History Reviewed, noncontributory to the management of this case. Past Social History The patient lives at home, denies smoking, alcohol or illicit drugs abuse. Review of Systems Constitutional: Yes: Weakness, Other (Fatigue); No: Fever, Chills, Sweats, Malaise Eyes: No: Pain, Vision change, Conjunctivae inflammation, Eyelid inflammation, Other, Redness ENT: No: Ear pain, Ear discharge, Nose pain, Nose discharge, Nose congestion, Mouth pain, Mouth swelling, Throat pain, Throat swelling, Other Respiratory: Shortness of breath; No: Cough, Dry, SOB with excertion, Wheezing, Hemoptysis, Pleuritic Pain, Sputum, Wheezing, Other Cardiovascular: No: Chest Pain, Palpitations, Orthopnea, Paroxysmal Noc. Dyspnea, Edema, Lt Headedness, Other Gastrointestinal: No: Nausea, Vomiting, Abdominal Pain, Diarrhea, Constipation, Melena, Hematochezia, Other Genitourinary: No Dysuria, No Frequency, No Incontinence, No Hematuria, No Retention, No Other Musculoskeletal: No: other, neck pain, shoulder pain, arm pain, back pain, hand pain, leg pain, foot pain Skin: Other (Sacral decubitus ulcer); No: Rash, Lesions, Jaundice, Bruising Neurological: Weakness, Other (Altered level of consciousness); No: Numbness, Incoordination, Change in speech, Confusion, Seizures Allergies: Coded Allergies: NO KNOWN ALLERGIES (Unverified , 09/21/24) Medications Current Medications Medications Dose Ordered Sig/Ijeoma Route Start Time Stop Time Status Last Admin Dose Admin Propofol 100 ml @ 1.5 mls/hr Q24H IV 09/21/24 02:30 09/21/24 02:36 1.5 MLS/HR Norepinephrine Bitartrate 250 ml @ 3.75 mls/hr Q24H IV 09/21/24 02:30 09/21/24 03:25 3.75 MLS/HR Famotidine 20 mg DAILY IV 09/21/24 10:00 Piperacillin Sod/ Tazobactam Sod 100 ml @ 25 mls/hr Q12HR IV 09/21/24 10:00 Ibuprofen 400 mg Q6HP PRN PO 09/21/24 04:15 Hydralazine HCl 10 mg Q6HP PRN IV 09/21/24 04:15 Sodium Chloride 10 ml Q8HR IV 09/21/24 06:00 09/21/24 05:58 10 ML Ondansetron HCl 4 mg Q4HP PRN IV 09/21/24 04:15 Purified Water 200 ml Q4HR GT 09/21/24 06:00 Nitroglycerin 0.4 mg Q5MINP PRN SL 09/21/24 06:00 UNV Morphine Sulfate 2 mg Q30M PRN IV 09/21/24 06:00 UNV Exam Vital Signs Vital Signs Date Time Temp Pulse Resp B/P (MAP) Pulse Ox O2 Delivery O2 Flow Rate FiO2 09/21/24 04:23 86 96/65 (75) 95 40 09/21/24 03:49 16 09/21/24 01:45 98.8 98.8 General Appearance: Other (Fully intubated) HEENT: Atraumatic, PERRLA, EOMI, Mucous membr. moist/pink Respiratory: Other (Fully intubated) Cardiovascular: Regular rate, Normal S1, Normal S2, No murmurs Abdominal: Normal bowel sounds, Soft, No tenderness, No hepatospenomegaly, No masses Extremities: No clubbing, No cyanosis, No edema, Normal pulses, No tenderness/swelling Neuro: Other (Altered level consciousness) Psych/Mental Status: Other (Unobtainable) Labs/Xrays Labs Test 09/21/24 05:03 09/21/24 04:12 09/21/24 03:51 09/21/24 03:03 Range/Units White Blood Count 6.6 4.4-10.8 10^3/uL Red Blood Count 3.21 L 4.0-5.20 10^6/uL Hemoglobin 10.1 #L 12.2-16.2 g/dL Hematocrit 30.4 #L 36.0-46.0 % Mean Corpuscular Volume 94.6 80.0-100.0 fL Mean Corpuscular Hemoglobin 31.4 28.0-32.0 pg Mean Corpuscular Hemoglobin Concent 33.1 32.0-36.0 g/dL Red Cell Distribution Width 16.6 H 11.8-14.3 % Platelet Count 171 140-450 10^3/uL Mean Platelet Volume 8.8 6.9-10.8 fL Neutrophils (%) (Auto) 73.9 37.0-80.0 % Lymphocytes (%) (Auto) 8.8 L 10.0-50.0 % Monocytes (%) (Auto) 17.2 H 0.0-12.0 % Eosinophils (%) (Auto) 0.0 0.0-7.0 % Basophils (%) (Auto) 0.1 0.0-2.0 % Neutrophils # (Auto) 4.9 1.6-8.6 10 ^3/uL Lymphocytes # (Auto) 0.6 0.4-5.4 10 ^3/uL Monocytes # (Auto) 1.1 0-1.3 10 ^3/uL Eosinophils # (Auto) 0 0-0.8 10 ^3/uL Basophils # (Auto) 0 0-0.2 10 ^3/uL Nucleated Red Blood Cells 0.0 % Sodium Level 157 H 136-145 mmol/L Potassium Level 4.2 3.5-5.1 mmol/L Chloride Level 118 H 98-107 mmol/L Carbon Dioxide Level 26 20-31 mmol/L Anion Gap 13 5-15 Blood Urea Nitrogen 91 #*H 9-23 mg/dL Creatinine 1.51 H 0.550-1.02 mg/dL Glomerular Filtration Rate Calc 35 >90 mL/min BUN/Creatinine Ratio 60.3 H 10.0-20.0 Serum Glucose 293 H 74-106 mg/dL Hemoglobin A1c 5.5 <5.7 % A1C Calcium Level 8.1 L 8.7-10.4 mg/dL Total Bilirubin 0.6 0.2-1.0 mg/dL Aspartate Amino Transferase (AST) 43 H 13-40 U/L Alanine Aminotransferase (ALT) 38 7-40 U/L Alkaline Phosphatase 81 46-116 U/L Troponin I High Sensitivity 276 *H </=34 ng/L Total Protein 6.1 5.7-8.2 g/dL Albumin 3.1 L 3.2-4.8 g/dL POC Glucose 156 H 70-106 mg/dl Lactic Acid Level 2.4 *H 0.4-2.0 mmol/L Blood Gas Specimen Type Arterial Blood Gas Sample Site Left radial Blood Gas Patient Temperature 37.0 Arterial Blood Date Drawn [id number] Arterial Blood pH 7.421 7.350-7.450 Arterial Blood Partial Pressure CO2 34.6 32.0-45.0 mmHg Arterial Blood Partial Pressure O2 404.2 *H 83.0-108.0 mmHg Arterial Blood HCO3 22.0 21.0-28.0 mmol/L Arterial Blood Oxygen Saturation 99.8 H 94.0-98.0 % Arterial Blood Base Excess -1.9 -2.0-3.0 mmol/L Arterial Blood Oxyhemoglobin 98.6 H 94.0-98.0 % Arterial Blood Carboxyhemoglobin 0.5 0.5-1.5 % Arterial Blood Methemoglobin 0.7 0.0-1.5 % Robert Test Modified Blood Gas Total Hemoglobin 12.20 12.0-16.0 g/dL Blood Gas Set Respiration Rate 16.0 Blood Gas Modality Vent - ac FiO2 % 100.0 Blood Gas Tidal Volume 450.0 Blood Gas PEEP or CPAP 5.0 Blood Gas Critical Value Read Back Yes Blood Gas Notified Whom elyse Chavez Blood Gas Notified Time [id number] Blood Gas Notified By Computer Typesetter caroline lopez PATIENT: SHAKIR BATISTA ACCT: [id number] UNIT: [id number] : 1945 LOC: ER ROOM / BED: / AGE / SEX: 79 / F ADM STATUS: REG ER SERVICE 0216 ORDERING PHYSICIAN: REGINE STEELE MD PROCEDURE(s): CXR1 - CHEST XRAY 1 VIEW REASON: POST INTUBATION ORDER NUMBER(s): [id number], ACCESSION NUMBER(s): [id number] CHEST RADIOGRAPH Indication: POST INTUBATION Technique: Single frontal view of the chest was obtained COMPARISON: None FINDINGS: Lines and Tubes: Endotracheal tube terminates approximately 2.8 cm above the level of the mayelin. Enteric tube terminates within the left upper quadrant presumably within the gastric lumen. Lungs: Clear Pleura: No effusion. No pneumothorax. Cardiomediastinal contours: Unremarkable Bones: Unremarkable IMPRESSION: 1. No acute disease. 2. Endotracheal and enteric tubes in satisfactory position. Assessment/Plan Assessment/Plan Sepsis, unspecified organism Severe sepsis with septic shock Metabolic encephalopathy Hyperkalemia Hypernatremia Acute on chronic renal failure Elevated liver enzymes Acute respiratory failure Sacral decubitus ulcer Pressure ulcer of sacral region, stage 4 Plan 1. Admit to intensive care unit 2. Breathing treatment 3. Pain control management 4. IV antibiotic management 5. Management of fluids and electrolytes 6. Consultation for hospitalist 7. Diagnostic test chest x-ray 8. DVT prophylaxis on 9. Repeat labs CBC, CMP in a.m. 10. Home medication reviewed and reconciled 11. Continue with current medical management 12. Treatment plan discussed with patient and RN. Patient verbalized underst anding. Plan discussed with: Patient, Other (RN) My Orders Orders - MAL VIVAR DNP Procedure Category Date Status Time Famotidine Injection PHA 09/21/24 In Process (Pepcid Injection) 10:00 *Dr. Issac Mckeon CONS 09/21/24 Transmitted -[place] 04:13 Piperacillin-Tazob PHA 09/21/24 In Process 3.375gm (Zosyn 3.375g 10:00 Ibuprofen Tablet PHA 09/21/24 In Process (Motrin Tablet) 04:15 Hydralazine Injection PHA 09/21/24 In Process (Apresoline Inject 04:15 * Wound Consult CONS 09/21/24 Transmitted Lactic Acid W/ Reflex LAB 09/21/24 Logged Order 06:00 Allergies SG 09/21/24 In Process 04:13 Code Status CODE 09/21/24 Transmitted 04:13 Sodium Chloride Lock PHA 09/21/24 In Process (Saline Lock Ns) 06:00 Oxygen Per Hour RT 09/21/24 Transmitted 04:13 Ondansetron Hcl PHA 09/21/24 In Process (Zofran) 04:15 Fall Risk Precautions [facility] 09/21/[address] 04:13 Complete Blood Count LAB 09/22/24 Verified 04:00 Comprehensive LAB 09/22/24 Verified Metabolic Panel 04:00 Npo (Nothing By DIET 09/21/24 Transmitted Mouth) Diet Breakfast Condition: Critical SG 09/21/24 In Process 04:13 Sequential SG 09/21/24 In Process Compression Device Free Water [facility] 09/21/24 In Process 06:00 Admit ADMIT 09/21/24 Transmitted 05:56 Nitroglycerin [facility] 09/21/24 Logged Sublingual (Ntrostat 06:00 Morphine Sulfate [facility] 09/21/24 Logged Injection 06:00 Notify Of Changes [facility] 09/21/24 In Process From Base 05:56 Principal Accounts Clerk For [facility] 09/21/24 In Process 24 Hours 05:56 Emergency Dysrhythmia [facility] 09/21/24 In Process Protocol 05:56 Rhythm Strips Once [facility] 09/21/24 In Process Every Shift 05:56 Oxygen By Nasal RT 09/21/24 Transmitted Cannula 05:56 Problem List: (1) Sepsis, unspecified organism (2) Metabolic encephalopathy (3) Severe sepsis with septic shock (4) Hyperkalemia (5) Hypernatremia (6) Sacral decubitus ulcer (7) Acute respiratory failure (8) Acute on chronic renal failure (9) Elevated liver enzymes (10) Pressure ulcer of sacral region, stage 4 Date of Service: Sep 21, 2024 Billing Provider: MAL VIVAR DNP Common Visit Codes: [id number] INP/OBS CARE (HIGH) MAL VIVAR DNP Sep 21, 2024 06:34
[2024-09-21 07:26] LABS: Lactic Acid w/Reflex 3.3 mmol/L (0.4-2.0)
[2024-09-21 10:36] LABS: Urine Bacteria None Seen /hpf (None Seen)
--- NOTE | 2024-09-21 10:43 | DVHINCON2 ---
Date of service: Sep 21, 2024 Referring Physician Brock Leon, nurse practitioner Reason for Consultation Acute kidney injury History of Present Illness Patient is 79-year-old female who has past medical history of hypertension, dementia and bed-bound is admitted from half-way facility for altered level of consciousness. Patient intubated in the ER for airway protection currently on the ventilator and nephrology is consulted for acute kidney injury Past Medical History Hypertension, dementia Past Surgical History Unknown Allergies: Coded Allergies: NO KNOWN ALLERGIES (Unverified , 09/21/24) Current Medications Current Medications Medications (Trade) Dose Ordered Sig/Ijeoma Route PRN Reason Start Time Stop Time Status Last Admin Propofol 100 ml @ 1.5 mls/hr Q24H IV 09/21/24 02:30 09/21/24 02:36 Norepinephrine Bitartrate 250 ml @ 3.75 mls/hr Q24H IV 09/21/24 02:30 09/21/24 03:25 Calcium Gluconate/ Sodium Chloride 50 ml @ 100 mls/hr Q30M IV 09/21/24 03:45 09/21/24 04:44 DC 09/21/24 05:53 Famotidine (Pepcid Injection) 20 mg DAILY IV 09/21/24 10:00 09/21/24 11:08 Piperacillin Sod/ Tazobactam Sod 100 ml @ 25 mls/hr Q12HR IV 09/21/24 10:00 09/21/24 11:08 Ibuprofen (Motrin Tablet) 400 mg Q6HP PRN PO PAIN SCALE 1-3 OR TEMP>100.4 09/21/24 04:15 09/21/24 10:40 DC Hydralazine HCl (Apresoline Injection) 10 mg Q6HP PRN IV SBP>150 09/21/24 04:15 Sodium Chloride (Saline Lock Ns) 10 ml Q8HR IV 09/21/24 06:00 09/21/24 05:58 Ondansetron HCl (Zofran) 4 mg Q4HP PRN IV NAUSEA / VOMITING 09/21/24 04:15 Purified Water 200 ml Q4HR GT 09/21/24 06:00 09/21/24 10:00 Nitroglycerin (Ntrostat Sublingual) 0.4 mg Q5MINP PRN SL FOR CHEST PAIN 09/21/24 06:00 Morphine Sulfate 2 mg Q30M PRN IV FOR CHEST PAIN 09/21/24 06:00 Sodium Chloride 1,000 ml @ 100 mls/hr Q10H IV 09/21/24 10:45 Review of Systems Can not be obtained H&P Exam Vital Signs/I&O Vital Sign Date Time Temp Pulse Resp B/P (MAP) Pulse Ox O2 Delivery O2 Flow Rate FiO2 09/21/24 11:45 89 16 110/72 (85) 100 40 09/21/24 07:20 99.5 99.5 09/21/24 07:20 Mechanical Ventilator+ 09/21/24 01:45 2 Intake and Output 09/20/24 09/21/24 19:00 07:00 Intake Total 2323.20 ml Balance 2323.20 ml Intake IV Total 2323.20 ml Physical Exam Patient intubated on ventilator Lungs clear to auscultation bilaterally Cardiac exam regular rate and rhythm GI soft nontender Vaughn catheter Extremity no clubbing cyanosis or edema Neuro patient is intubated Labs/Diagnostic Data Labs/Diagnostic Data Laboratory Tests Test 09/21/24 11:37 09/21/24 11:14 09/21/24 10:35 09/21/24 06:28 Range/Units Urine Color Yellow Yellow Urine Clarity Clear Clear Urine pH 6.0 5.0-9.0 Urine Specific [place] 1.022 1.001-1.035 Urine Protein Negative Negative Urine Ketones Negative Negative Urine Blood Negative Negative /uL Urine Nitrite Negative Negative Urine Bilirubin Negative Negative Urine Urobilinogen Normal Negative mg/dL Urine Leukocyte Esterase 2+ Negative /uL Urine RBC 2 0 - 4 /hpf Urine Microscopic WBC 10 H 0-5 /HPF Urine Squamous Epithelial Cells Few <5 /hpf Urine Bacteria None seen None Seen /hpf Urine Glucose 3+ H Normal mg/dL Lactic Acid Level 3.3 *H 0.4-2.0 mmol/L Test 09/21/24 05:03 09/21/24 04:12 09/21/24 03:51 09/21/24 03:03 Range/Units White Blood Count 6.6 4.4-10.8 10^3/uL Red Blood Count 3.21 L 4.0-5.20 10^6/uL Hemoglobin 10.1 #L 12.2-16.2 g/dL Hematocrit 30.4 #L 36.0-46.0 % Mean Corpuscular Volume 94.6 80.0-100.0 fL Mean Corpuscular Hemoglobin 31.4 28.0-32.0 pg Mean Corpuscular Hemoglobin Concent 33.1 32.0-36.0 g/dL Red Cell Distribution Width 16.6 H 11.8-14.3 % Platelet Count 171 140-450 10^3/uL Mean Platelet Volume 8.8 6.9-10.8 fL Neutrophils (%) (Auto) 73.9 37.0-80.0 % Lymphocytes (%) (Auto) 8.8 L 10.0-50.0 % Monocytes (%) (Auto) 17.2 H 0.0-12.0 % Eosinophils (%) (Auto) 0.0 0.0-7.0 % Basophils (%) (Auto) 0.1 0.0-2.0 % Neutrophils # (Auto) 4.9 1.6-8.6 10 ^3/uL Lymphocytes # (Auto) 0.6 0.4-5.4 10 ^3/uL Monocytes # (Auto) 1.1 0-1.3 10 ^3/uL Eosinophils # (Auto) 0 0-0.8 10 ^3/uL Basophils # (Auto) 0 0-0.2 10 ^3/uL Nucleated Red Blood Cells 0.0 % Sodium Level 157 H 136-145 mmol/L Potassium Level 4.2 3.5-5.1 mmol/L Chloride Level 118 H 98-107 mmol/L Carbon Dioxide Level 26 20-31 mmol/L Anion Gap 13 5-15 Blood Urea Nitrogen 91 #*H 9-23 mg/dL Creatinine 1.51 H 0.550-1.02 mg/dL Glomerular Filtration Rate Calc 35 >90 mL/min BUN/Creatinine Ratio 60.3 H 10.0-20.0 Serum Glucose 293 H 74-106 mg/dL Hemoglobin A1c 5.5 <5.7 % A1C Calcium Level 8.1 L 8.7-10.4 mg/dL Total Bilirubin 0.6 0.2-1.0 mg/dL Aspartate Amino Transferase (AST) 43 H 13-40 U/L Alanine Aminotransferase (ALT) 38 7-40 U/L Alkaline Phosphatase 81 46-116 U/L Troponin I High Sensitivity 276 *H </=34 ng/L Total Protein 6.1 5.7-8.2 g/dL Albumin 3.1 L 3.2-4.8 g/dL POC Glucose 156 H 70-106 mg/dl Lactic Acid Level 2.4 *H 0.4-2.0 mmol/L Blood Gas Specimen Type Arterial Blood Gas Sample Site Left radial Blood Gas Patient Temperature 37.0 Arterial Blood Date Drawn [id number] Arterial Blood pH 7.421 7.350-7.450 Arterial Blood Partial Pressure CO2 34.6 32.0-45.0 mmHg Arterial Blood Partial Pressure O2 404.2 *H 83.0-108.0 mmHg Arterial Blood HCO3 22.0 21.0-28.0 mmol/L Arterial Blood Oxygen Saturation 99.8 H 94.0-98.0 % Arterial Blood Base Excess -1.9 -2.0-3.0 mmol/L Arterial Blood Oxyhemoglobin 98.6 H 94.0-98.0 % Arterial Blood Carboxyhemoglobin 0.5 0.5-1.5 % Arterial Blood Methemoglobin 0.7 0.0-1.5 % Robert Test Modified Blood Gas Total Hemoglobin 12.20 12.0-16.0 g/dL Blood Gas Set Respiration Rate 16.0 Blood Gas Modality Vent - ac FiO2 % 100.0 Blood Gas Tidal Volume 450.0 Blood Gas PEEP or CPAP 5.0 Blood Gas Critical Value Read Back Yes Blood Gas Notified Whom elyse Chavez Blood Gas Notified Time [id number] Blood Gas Notified By [employer] Insurance Agent caroline lopez Test 09/21/24 02:43 09/21/24 01:59 Range/Units Troponin I High Sensitivity 44 *H 44 *H </=34 ng/L White Blood Count 7.5 4.4-10.8 10^3/uL Red Blood Count 3.95 L 4.0-5.20 10^6/uL Hemoglobin 12.1 L 12.2-16.2 g/dL Hematocrit 38.4 36.0-46.0 % Mean Corpuscular Volume 97.2 80.0-100.0 fL Mean Corpuscular Hemoglobin 30.6 28.0-32.0 pg Mean Corpuscular Hemoglobin Concent 31.5 L 32.0-36.0 g/dL Red Cell Distribution Width 17.3 H 11.8-14.3 % Platelet Count 217 140-450 10^3/uL Mean Platelet Volume 8.8 6.9-10.8 fL Neutrophils (%) (Auto) 76.2 37.0-80.0 % Lymphocytes (%) (Auto) 5.8 L 10.0-50.0 % Monocytes (%) (Auto) 17.7 H 0.0-12.0 % Eosinophils (%) (Auto) 0.1 0.0-7.0 % Basophils (%) (Auto) 0.2 0.0-2.0 % Neutrophils # (Auto) 5.7 1.6-8.6 10 ^3/uL Lymphocytes # (Auto) 0.4 0.4-5.4 10 ^3/uL Monocytes # (Auto) 1.3 0-1.3 10 ^3/uL Eosinophils # (Auto) 0 0-0.8 10 ^3/uL Basophils # (Auto) 0 0-0.2 10 ^3/uL Nucleated Red Blood Cells 0.1 % Sodium Level 154 H 136-145 mmol/L Potassium Level 5.8 *H 3.5-5.1 mmol/L Chloride Level 117 H 98-107 mmol/L Carbon Dioxide Level 25 20-31 mmol/L Anion Gap 12 5-15 Blood Urea Nitrogen 121 *H 9-23 mg/dL Creatinine 1.92 H 0.550-1.02 mg/dL Glomerular Filtration Rate Calc 27 >90 mL/min BUN/Creatinine Ratio 63.0 H 10.0-20.0 Serum Glucose 180 H 74-106 mg/dL Lactic Acid Level 2.9 *H 0.4-2.0 mmol/L Calcium Level 9.4 8.7-10.4 mg/dL Total Bilirubin 0.6 0.2-1.0 mg/dL Aspartate Amino Transferase (AST) 48 H 13-40 U/L Alanine Aminotransferase (ALT) 50 H 7-40 U/L Alkaline Phosphatase 97 46-116 U/L Total Protein 7.0 5.7-8.2 g/dL Albumin 3.7 3.2-4.8 g/dL Assessment Acute kidney injury superimposed Chronic Kidney Disease secondary hemodynamic mediated Acute respiratory failure, patient intubated on ventilator Hypernatremia due to dehydration Hyperkalemia Sepsis Urinary tract infection NSTEMI Anemia of chronic kidney disease Recommendations Closely monitor fluid and electrolytes Avoid nephrotoxic medications Vaughn catheter Strict I&Os Check urinalysis urine lytes and protein Check kidney ultrasound IVF half NS at 100 cc/hour Medical treatment for hyperkalemia IV antibiotics Cardiology consult We will continue to follow Patient seen and examined by myself in the ER. I discussed my plan of care with the primary nurse at the bedside I would like to thank Brock for the consult, will follow Plan discussed with: Other (Nurse) HALEY RED MD Sep 21, 2024 10:43
[2024-09-21] MEDS: PIPERACILLIN-TAZOB 3.375GM 100 ML IV SCH (11:08)
[2024-09-21] MEDS: FAMOTIDINE (10MG/ML) 2ML VL IV SCH (11:08)
[2024-09-21 11:14] LABS: Urine Blood Negative /uL (Negative); Urine Clarity Clear (Clear); Urine Color Yellow (Yellow); Urine Protein, UAD Negative (Negative); Urine Specific Gravity 1.022 (1.001-1.035); Urine Squamous Epithelial Cell FEW /hpf (<5); Urine Urobilinogen Normal (Negative); Urine WBC 10 /HPF (0-5)
[2024-09-21 12:00] LABS: Phosphorus 4.2 mg/dL (2.4-5.1)
--- NOTE | 2024-09-21 13:05 | DVHPN2 ---
Reviewed: Care Plan, H&P, Labs, Medications, Previous Orders, Radiology Changes from previous H/P or p: No Changes Eyes: No Pain, No Vision change, No Conjunctivae inflammation, No Eyelid inflammation, No Other, No Redness ENT: No Ear pain, No Ear discharge, No Nose pain, No Nose discharge, No Nose congestion, No Mouth pain, No Mouth swelling, No Throat pain, No Throat swelling, No Other Cardiovascular: No Chest Pain, No Palpitations, No Orthopnea, No Paroxysmal Noc. Dyspnea, No Edema, No Lt Headedness, No Other Respiratory: No Cough, No Dry; Shortness of breath; No SOB with excertion, No Wheezing, No Hemoptysis, No Pleuritic Pain, No Sputum, No Other Gastrointestinal: No Nausea, No Vomiting, No Abdominal Pain, No Diarrhea, No Constipation, No Melena, No Hematochezia, No Other Genitourinary: No Dysuria, No Frequency, No Incontinence, No Hematuria, No Retention, No Other Musculoskeletal: No other, No neck pain, No shoulder pain, No arm pain, No back pain, No hand pain, No leg pain, No foot pain Skin: No Rash, No Lesions, No Jaundice, No Bruising; Other (Sacral decubitus ulcer) Objective Vitals Vital Signs Date Time Temp Pulse Resp B/P (MAP) Pulse Ox O2 Delivery O2 Flow Rate FiO2 09/21/24 11:45 89 16 110/72 (85) 100 40 09/21/24 07:20 99.5 99.5 09/21/24 07:20 Mechanical Ventilator+ 09/21/24 01:45 2 Intake/Output Intake and Output 09/21/24 07:00 Intake Total 2323.20 ml Balance 2323.20 ml Intake IV Total 2323.20 ml Medications Current Medications Medications Dose Ordered Sig/Ijeoma Route Start Time Stop Time Status Last Admin Dose Admin Propofol 100 ml @ 1.5 mls/hr Q24H IV 09/21/24 02:30 09/21/24 02:36 1.5 MLS/HR Norepinephrine Bitartrate 250 ml @ 3.75 mls/hr Q24H IV 09/21/24 02:30 09/21/24 03:25 3.75 MLS/HR Famotidine 20 mg DAILY IV 09/21/24 10:00 09/21/24 11:08 20 MG Piperacillin Sod/ Tazobactam Sod 100 ml @ 25 mls/hr Q12HR IV 09/21/24 10:00 09/21/24 11:08 25 MLS/HR Hydralazine HCl 10 mg Q6HP PRN IV 09/21/24 04:15 Sodium Chloride 10 ml Q8HR IV 09/21/24 06:00 09/21/24 05:58 10 ML Ondansetron HCl 4 mg Q4HP PRN IV 09/21/24 04:15 Purified Water 200 ml Q4HR GT 09/21/24 06:00 09/21/24 10:00 200 ML Nitroglycerin 0.4 mg Q5MINP PRN SL 09/21/24 06:00 Morphine Sulfate 2 mg Q30M PRN IV 09/21/24 06:00 Sodium Chloride 1,000 ml @ 100 mls/hr Q10H IV 09/21/24 10:45 Laboratory Results Laboratory Tests 09/21/24 05:03 Chemistry Test 09/21/24 01:59 09/21/24 05:03 09/21/24 11:14 Albumin 3.7 g/dL (3.2-4.8) 3.1 g/dL (3.2-4.8) L Calcium Level 9.4 mg/dL (8.7-10.4) 8.1 mg/dL (8.7-10.4) L Total Protein 7.0 g/dL (5.7-8.2) 6.1 g/dL (5.7-8.2) Magnesium Level 3.0 mg/dL (1.6-2.6) H Phosphorus Level 4.2 mg/dL (2.4-5.1) LFT Test 09/21/24 01:59 09/21/24 05:03 Alanine Aminotransferase (ALT) 50 U/L (7-40) H 38 U/L (7-40) Alkaline Phosphatase 97 U/L (46-116) 81 U/L (46-116) Aspartate Amino Transferase (AST) 48 U/L (13-40) H 43 U/L (13-40) H Total Bilirubin 0.6 mg/dL (0.2-1.0) 0.6 mg/dL (0.2-1.0) HgA1c, TSH Test 09/21/24 05:03 Hemoglobin A1c 5.5 % A1C (<5.7) Urinalysis Test 09/21/24 10:35 Urine Color Yellow (Yellow) Urine Clarity Clear (Clear) Urine pH 6.0 (5.0-9.0) Urine Specific [place] 1.022 (1.001-1.035) Urine Protein Negative (Negative) Urine Ketones Negative (Negative) Urine Blood Negative /uL (Negative) Urine Nitrite Negative (Negative) Urine Bilirubin Negative (Negative) Urine Urobilinogen Normal mg/dL (Negative) Urine Leukocyte Esterase 2+ /uL (Negative) Urine RBC 2 /hpf (0 - 4) Urine Microscopic WBC 10 /HPF (0-5) H Urine Squamous Epithelial Cells Few /hpf (<5) Urine Bacteria None seen /hpf (None Seen) Urine Glucose 3+ mg/dL (Normal) H Blood Gas Results Test 09/21/24 03:03 Arterial Blood pH 7.421 (7.350-7.450) FiO2 % 100.0 Labs and/or images reviewed: Labs reviewed by me, Image(s) reviewed by me Assessment/Plan Assessment/Plan Acute Hypoxic respiratory failure status post intubated ventilator, continue pressors and sedation, pulmonary consult for Dr. Esposito Septic Shock with elevated white count altered mental status possibly secondary to urinary tract infection: Blood cultures urine cultures Zosyn Hypertension Dementia Acute kidney injury with BUN creatinine 121 and 1.[address] Davenport Acute hyperkalemia potassium 5.8 treatment per hyperkalemia protocol Acute lactic acidosis Acute metabolic encephalopathy Patient came from board and care Patient is hospice revoked Condition guarded Time spent 70 minutes Patient is full code Advanced care planning time 20 minutes Plan discussed with: Patient My Orders Orders - MARY BETH WOMACK MD Procedure Category Date Status Time Urine Bacterial AYO 09/21/24 Logged Culture 12:58 *Dr. Davenport Group CONS 09/21/24 Transmitted -[place] 12:59 Date of Service: Sep 21, 2024 Billing Provider: MARY BETH WOMACK MD Common Visit Codes: [id number] CARE 30-74 MIN MARY BETH WOMACK MD Sep 21, 2024 13:05
[2024-09-21 13:33] LABS: Protein, Urine 26.8 mg/dL (1-14)
[2024-09-21 13:36] LABS: Creatinine, Urine 64.58 mg/dL (30.0-125.0); Urine Protein/Creatinine Ratio 0.41
[2024-09-21] MEDS: SOD CHL 0.45% 1,000 ML IV SCH (13:49)
[2024-09-21] MEDS: MIDAZOLAM DRIP 50 mg/50mL 50 ML IV SCH (16:16)
--- NOTE | 2024-09-21 19:48 | DVHINCON2 ---
Date of service: Sep 21, [address] Mary Saravia Reason for Consultation Acute hypoxic respiratory failure requiring mechanical ventilator History of Present Illness A 79-year-old woman, bed-bound with past medical history of dementia and hypertension, who presents to ED today for evaluation of altered level of consciousness. Patient was noted by staff member at board and care facility altered than usual, unresponsive to verbal stimuli, worsening decubitus ulcer, elevated temperature at 101 F, getting worse that prompted this visit. Patient was lethargic, hypoxic while in ED and was subsequently intubated. Workup in ED notable for WBC 7.5, platelets 217, sodium 154, potassium 5.8, BUN 121, creatinine 1.92, GFR 27, glucose 180, lactic acid 2.9, AST 48, ALT 50, troponin 44. Blood pressure of 146/91, heart rate 89, temperature trending down to 98.8 F, O2 saturation 97% on ventilator. Patient was admitted for further care, and pulmonary consultation is requested for evaluation and management of acute hypoxic respiratory failure requiring ventilator support. Review of Systems: 14-point review of systems negative unless otherwise noted above. Past Medical History: Dementia and hypertension Past Surgical History: None Medications: Reviewed. Allergies: No known drug allergies. Family History: No family history of premature CAD. No family history of lung disorders. Social History: Nonsmoker. No alcohol or illicit drug use. Allergies: Coded Allergies: NO KNOWN ALLERGIES (Unverified , 12/28/23) Home Meds Reported Medications Trazodone Hcl (Trazodone Hcl) 50 Mg Tab, 1 08/25/24 Alprazolam (Alprazolam) 0.25 Mg Tab 08/25/24 Divalproex Sodium (Divalproex Sodium Dr) 250 Mg Tab, 1 08/25/24 Donepezil Hydrochloride (DONEPEZIL HCL) 5 Mg Tab, 1 DAILY 08/25/24 Quetiapine Fumerate (QUETIAPINE FUMARATE) 25 Mg Tab 08/25/24 Current Medications Current Medications Medications (Trade) Dose Ordered Sig/Ijeoma Route PRN Reason Start Time Stop Time Status Last Admin Propofol 100 ml @ 1.5 mls/hr Q24H IV 09/21/24 02:30 09/21/24 15:02 Norepinephrine Bitartrate 250 ml @ 3.75 mls/hr Q24H IV 09/21/24 02:30 09/21/24 03:25 Calcium Gluconate/ Sodium Chloride 50 ml @ 100 mls/hr Q30M IV 09/21/24 03:45 09/21/24 04:44 DC 09/21/24 05:53 Famotidine (Pepcid Injection) 20 mg DAILY IV 09/21/24 10:00 09/21/24 11:08 Piperacillin Sod/ Tazobactam Sod 100 ml @ 25 mls/hr Q12HR IV 09/21/24 10:00 09/21/24 11:08 Ibuprofen (Motrin Tablet) 400 mg Q6HP PRN PO PAIN SCALE 1-3 OR TEMP>100.4 09/21/24 04:15 09/21/24 10:40 DC Hydralazine HCl (Apresoline Injection) 10 mg Q6HP PRN IV SBP>150 09/21/24 04:15 Sodium Chloride (Saline Lock Ns) 10 ml Q8HR IV 09/21/24 06:00 09/21/24 14:02 Ondansetron HCl (Zofran) 4 mg Q4HP PRN IV NAUSEA / VOMITING 09/21/24 04:15 Purified Water 200 ml Q4HR GT 09/21/24 06:00 09/21/24 17:43 Nitroglycerin (Ntrostat Sublingual) 0.4 mg Q5MINP PRN SL FOR CHEST PAIN 09/21/24 06:00 Morphine Sulfate 2 mg Q30M PRN IV FOR CHEST PAIN 09/21/24 06:00 Sodium Chloride 1,000 ml @ 100 mls/hr Q10H IV 09/21/24 10:45 09/21/24 13:49 Midazolam HCl 50 ml @ 1 mls/hr Q24H IV 09/21/24 15:30 09/21/24 16:16 Vital Signs Vital Signs Date Time Temp Pulse Resp B/P (MAP) Pulse Ox O2 Delivery O2 Flow Rate FiO2 09/21/24 18:30 95.9 74 16 95/62 (73) 100 204.6 09/21/24 18:09 30 09/21/24 17:50 Mechanical Ventilator+ 09/21/24 01:45 2 Physical Exam Gen.: Patient lying in bed in medical ICU. Sedated, intubated on mechanical ventilator. Head: Normocephalic, atraumatic. Eyes: PERRLA. Ears: Normal external anatomy. Throat: Endotracheal tube and orogastric tube in place. Neck: Supple, trachea midline. Chest: Transmitted breath sounds bilaterally. Decreased air entry bilaterally. No wheezing. Bibasilar crackles. Cardio vascular: Positive S1, positive S2. Regular rate and rhythm. Abdomen: Positive bowel sounds in all 4 quadrants. Soft, nontender, nondistended. : Vaughn in place. Normal external genitalia. Rectal: Deferred Skin: Warm, dry. Intact. Extremities: 2+ radial pulses bilaterally. No lower extremity edema. Neuro: Sedated. Labs/Diagnostic Data Labs Test 09/21/24 12:10 09/21/24 11:14 09/21/24 10:35 09/21/24 06:28 Range/Units Phosphorus Level 4.2 2.4-5.1 mg/dL Magnesium Level 3.0 H 1.6-2.6 mg/dL Urine Color Yellow Yellow Urine Clarity Clear Clear Urine pH 6.0 5.0-9.0 Urine Specific [place] 1.022 1.001-1.035 Urine Protein Negative Negative Urine Ketones Negative Negative Urine Blood Negative Negative /uL Urine Nitrite Negative Negative Urine Bilirubin Negative Negative Urine Urobilinogen Normal Negative mg/dL Urine Leukocyte Esterase 2+ Negative /uL Urine RBC 2 0 - 4 /hpf Urine Microscopic WBC 10 H 0-5 /HPF Urine Squamous Epithelial Cells Few <5 /hpf Urine Bacteria None seen None Seen /hpf Urine Creatinine 64.58 30.0-125.0 mg/dL Urine Protein/Creatinine Ratio 0.41 Urine Sodium 35 L 40-220 mmol/L Urine Glucose 3+ H Normal mg/dL Urine Total Protein 26.8 H 1-14 mg/dL Lactic Acid Level 3.3 *H 0.4-2.0 mmol/L Test 09/21/24 05:03 09/21/24 04:12 09/21/24 03:03 Range/Units White Blood Count 6.6 4.4-10.8 10^3/uL Red Blood Count 3.21 L 4.0-5.20 10^6/uL Hemoglobin 10.1 #L 12.2-16.2 g/dL Hematocrit 30.4 #L 36.0-46.0 % Mean Corpuscular Volume 94.6 80.0-100.0 fL Mean Corpuscular Hemoglobin 31.4 28.0-32.0 pg Mean Corpuscular Hemoglobin Concent 33.1 32.0-36.0 g/dL Red Cell Distribution Width 16.6 H 11.8-14.3 % Platelet Count 171 140-450 10^3/uL Mean Platelet Volume 8.8 6.9-10.8 fL Neutrophils (%) (Auto) 73.9 37.0-80.0 % Lymphocytes (%) (Auto) 8.8 L 10.0-50.0 % Monocytes (%) (Auto) 17.2 H 0.0-12.0 % Eosinophils (%) (Auto) 0.0 0.0-7.0 % Basophils (%) (Auto) 0.1 0.0-2.0 % Neutrophils # (Auto) 4.9 1.6-8.6 10 ^3/uL Lymphocytes # (Auto) 0.6 0.4-5.4 10 ^3/uL Monocytes # (Auto) 1.1 0-1.3 10 ^3/uL Eosinophils # (Auto) 0 0-0.8 10 ^3/uL Basophils # (Auto) 0 0-0.2 10 ^3/uL Nucleated Red Blood Cells 0.0 % Sodium Level 157 H 136-145 mmol/L Potassium Level 4.2 3.5-5.1 mmol/L Chloride Level 118 H 98-107 mmol/L Carbon Dioxide Level 26 20-31 mmol/L Anion Gap 13 5-15 Blood Urea Nitrogen 91 #*H 9-23 mg/dL Creatinine 1.51 H 0.550-1.02 mg/dL Glomerular Filtration Rate Calc 35 >90 mL/min BUN/Creatinine Ratio 60.3 H 10.0-20.0 Serum Glucose 293 H 74-106 mg/dL Hemoglobin A1c 5.5 <5.7 % A1C Calcium Level 8.1 L 8.7-10.4 mg/dL Total Bilirubin 0.6 0.2-1.0 mg/dL Aspartate Amino Transferase (AST) 43 H 13-40 U/L Alanine Aminotransferase (ALT) 38 7-40 U/L Alkaline Phosphatase 81 46-116 U/L Troponin I High Sensitivity 276 *H </=34 ng/L Total Protein 6.1 5.7-8.2 g/dL Albumin 3.1 L 3.2-4.8 g/dL POC Glucose 156 H 70-106 mg/dl Blood Gas Specimen Type Arterial Blood Gas Sample Site Left radial Blood Gas Patient Temperature 37.0 Arterial Blood Date Drawn [id number] Arterial Blood pH 7.421 7.350-7.450 Arterial Blood Partial Pressure CO2 34.6 32.0-45.0 mmHg Arterial Blood Partial Pressure O2 404.2 *H 83.0-108.0 mmHg Arterial Blood HCO3 22.0 21.0-28.0 mmol/L Arterial Blood Oxygen Saturation 99.8 H 94.0-98.0 % Arterial Blood Base Excess -1.9 -2.0-3.0 mmol/L Arterial Blood Oxyhemoglobin 98.6 H 94.0-98.0 % Arterial Blood Carboxyhemoglobin 0.5 0.5-1.5 % Arterial Blood Methemoglobin 0.7 0.0-1.5 % Robert Test Modified Blood Gas Total Hemoglobin 12.20 12.0-16.0 g/dL Blood Gas Set Respiration Rate 16.0 Blood Gas Modality Vent - ac FiO2 % 100.0 Blood Gas Tidal Volume 450.0 Blood Gas PEEP or CPAP 5.0 Blood Gas Critical Value Read Back Yes Blood Gas Notified Whom elyse Chavez Blood Gas Notified Time [id number] Blood Gas Notified By Research Environmental Scientist caroline lopez Microbiology Date/Time Source Procedure Growth Status 09/21/24 01:57 Blood Blood Culture - Preliminary Resulted Assessment Impression: Acute hypoxic respiratory failure On mechanical ventilator Septic shock Metabolic encephalopathy, acute Acute on chronic renal failure Abnormal liver function tests Sacral decubitus ulcer Pressure ulcer of the sacral region, stage IV Cachexia, BMI 18.3 Lactic acidosis Anemia Plan: s/p intubation on mechanical ventilator CXR image and report reviewed. No acute opacities. No pleural effusion or pneumothorax. Devices in place. ABG reviewed. Compensated. On assist control with respiratory rate of 16, tidal volume 450, peep of five, FiO2 at 100%. Titrate FIO2 to keep O2 saturation above 92%. VAP bundle Daily ABG and CXR while intubated. Sedate for ventilatory synchrony On pressors for hemodynamic support. On Levophed Titrate to keep MAP above 65 mmHg/SBP above 90 mmHg. Continue antibiotics. F/u cultures. Monitor renal function due to Acute kidney injury. Monitor electrolytes. Supplement as necessary. Follow up Nephrology recommendations. Receiving free water via NG tube Nutritional support. Accucheks, ISS. GI prophylaxis-Pepcid DVT prophylaxis. Recommend SCDs Condition: Critical Prognosis: Poor given multiple comorbidities. Rest of plan per hospitalist and other consultants. A total of 36 minutes of critical care time was spent reviewing the patient record, examining the patient, making a diagnostic and therapeutic plan, discussing this plan with the medical personnel, following up on diagnostic studies and following the patient for clinical stability excluding any and all procedures. At least 50% of this time was spent in direct, [id number] contact. Thank you Dr. Mary Saravia for allowing me to participate in this patient's care. Further recommendations will depend on patient's clinical course. Please do not hesitate to contact me if you have any questions or concerns. This medical document was created using an electronic medical record system with [employer] dictation system. Although this document has been carefully reviewed, there may still be some phonetic and typographical errors. These areas are purely typographical due to imperfections of the software programs, and do not reflect any compromise in the patient's medical care. Plan discussed with: Other (RN,RT) ROBERT MCKINNON MD Sep 21, 2024 19:48
[2024-09-22] VITALS (109 sets, daily range): BP systolic 70–139; BP diastolic 37–74; PULSE 59–109; RESP 14–22; TEMP 97.7–101.5; O2SAT 92–100
--- NOTE | 2024-09-22 05:06 | DVH ---
CHEST RADIOGRAPH Indication: intubated Technique: Single frontal view of the chest was obtained COMPARISON: XY CHEST XRAY 1 VIEW on DOS: 09/21/24 FINDINGS: Lines and Tubes: Endotracheal tube and enteric catheter in satisfactory position. Lungs: Patchy bilateral airspace disease. Pleura: No effusion. No pneumothorax. Cardiomediastinal contours: Unremarkable Bones: Unremarkable IMPRESSION: Lines and tubes in satisfactory position. No significant interval change.
[2024-09-22 05:17] LABS: Basophils # (auto) 0 10 ^3/uL (0-0.2); Basophils % (auto) 0.1 % (0.0-2.0); Eosinophils # (auto) 0 10 ^3/uL (0-0.8); Eosinophils % (auto) 0.3 % (0.0-7.0); Hematocrit 32.1 % (36.0-46.0); Hemoglobin 10.9 g/dL (12.2-16.2); Lymphocytes # (auto) 0.9 10 ^3/uL (0.4-5.4); Lymphocytes % (auto) 8.4 % (10.0-50.0); Mean Corpuscular Hemoglobin 32.1 pg (28.0-32.0); Mean Corpuscular Hgb Conc. 34.1 g/dL (32.0-36.0); Mean Corpuscular Volume 94.3 fL (80.0-100.0); Monocytes # (auto) 1.1 10 ^3/uL (0-1.3); Monocytes % (auto) 10.5 % (0.0-12.0); Neutrophils # (auto) 8.2 10 ^3/uL (1.6-8.6); Neutrophils % (auto) 80.7 % (37.0-80.0); Nucleated Red Blood Cells % 0.1 %; Platelet Count (auto) 164 10^3/uL (140-450); Red Cell Distribution Width 16.2 % (11.8-14.3); White Blood Cell 10.2 10^3/uL (4.4-10.8)
[2024-09-22 05:27] LABS: Alanine Aminotransferase 34 U/L (7-40); Albumin 3.4 g/dL (3.2-4.8); Alkaline Phosphatase 92 U/L (46-116); Anion Gap 9 (5-15); Aspartate Aminotransferase 39 U/L (13-40); BUN/Creatinine Ratio 65.4 (10.0-20.0); Bilirubin, Total 0.5 mg/dL (0.2-1.0); Calcium 9.5 mg/dL (8.7-10.4); Carbon Dioxide 26 mmol/L (20-31); Phosphorus 3.6 mg/dL (2.4-5.1); Potassium 4.3 mmol/L (3.5-5.1); Total Protein 6.6 g/dL (5.7-8.2)
[2024-09-22 05:29] LABS: Blood Urea Nitrogen 70 mg/dL (9-23); Chloride 115 mmol/L (98-107); Glucose 130 mg/dL (74-106); Magnesium 2.7 mg/dL (1.6-2.6); Sodium 150 mmol/L (136-145)
[2024-09-22 07:31] LABS: Base Excess 2.9 mmol/L (-2.0-3.0)
--- NOTE | 2024-09-22 09:13 | DVHPN2 ---
Reviewed: Care Plan, H&P, Labs, Medications, Previous Orders, Radiology Changes from previous H/P or p: No Changes Eyes: No Pain, No Vision change, No Conjunctivae inflammation, No Eyelid inflammation, No Other, No Redness ENT: No Ear pain, No Ear discharge, No Nose pain, No Nose discharge, No Nose congestion, No Mouth pain, No Mouth swelling, No Throat pain, No Throat swelling, No Other Cardiovascular: No Chest Pain, No Palpitations, No Orthopnea, No Paroxysmal Noc. Dyspnea, No Edema, No Lt Headedness, No Other Respiratory: No Cough, No Dry; Shortness of breath; No SOB with excertion, No Wheezing, No Hemoptysis, No Pleuritic Pain, No Sputum, No Other Gastrointestinal: No Nausea, No Vomiting, No Abdominal Pain, No Diarrhea, No Constipation, No Melena, No Hematochezia, No Other Genitourinary: No Dysuria, No Frequency, No Incontinence, No Hematuria, No Retention, No Other Musculoskeletal: No other, No neck pain, No shoulder pain, No arm pain, No back pain, No hand pain, No leg pain, No foot pain Skin: No Rash, No Lesions, No Jaundice, No Bruising; Other (Sacral decubitus ulcer) Objective Vitals Vital Signs Date Time Temp Pulse Resp B/P (MAP) Pulse Ox O2 Delivery O2 Flow Rate FiO2 09/22/24 08:45 98.2 67 16 105/56 (72) 100 208.8 09/22/24 08:01 30 09/22/24 07:51 Mechanical Ventilator+ 09/21/24 01:45 2 Intake/Output Intake and Output 09/22/24 07:00 Intake Total 2869.50 ml Output Total 1300 ml Balance 1569.50 ml Intake Oral 600 ml IV Total 2269.50 ml Output Urine Total 1300 ml # Bowel Movements 1 Medications Current Medications Medications Dose Ordered Sig/Ijeoma Route Start Time Stop Time Status Last Admin Dose Admin Propofol 100 ml @ 1.5 mls/hr Q24H IV 09/21/24 02:30 09/22/24 01:16 7.5 MLS/HR Norepinephrine Bitartrate 250 ml @ 3.75 mls/hr Q24H IV 09/21/24 02:30 09/21/24 03:25 3.75 MLS/HR Famotidine 20 mg DAILY IV 09/21/24 10:00 09/22/24 07:31 20 MG Piperacillin Sod/ Tazobactam Sod 100 ml @ 25 mls/hr Q12HR IV 09/21/24 10:00 09/22/24 07:31 25 MLS/HR Hydralazine HCl 10 mg Q6HP PRN IV 09/21/24 04:15 Sodium Chloride 10 ml Q8HR IV 09/21/24 06:00 09/22/24 07:32 10 ML Ondansetron HCl 4 mg Q4HP PRN IV 09/21/24 04:15 Purified Water 200 ml Q4HR GT 09/21/24 06:00 09/22/24 07:32 200 ML Nitroglycerin 0.4 mg Q5MINP PRN SL 09/21/24 06:00 Morphine Sulfate 2 mg Q30M PRN IV 09/21/24 06:00 Sodium Chloride 1,000 ml @ 100 mls/hr Q10H IV 09/21/24 10:45 09/22/24 01:05 100 MLS/HR Midazolam HCl 50 ml @ 1 mls/hr Q24H IV 09/21/24 15:30 09/21/24 16:16 1 MLS/HR Laboratory Results Laboratory Tests 09/22/24 05:01 Chemistry Test 09/21/24 11:14 09/22/24 05:01 Magnesium Level 3.0 mg/dL (1.6-2.6) H 2.7 mg/dL (1.6-2.6) H Phosphorus Level 4.2 mg/dL (2.4-5.1) 3.6 mg/dL (2.4-5.1) Albumin 3.4 g/dL (3.2-4.8) Calcium Level 9.5 mg/dL (8.7-10.4) Total Protein 6.6 g/dL (5.7-8.2) LFT Test 09/22/24 05:01 Alanine Aminotransferase (ALT) 34 U/L (7-40) Alkaline Phosphatase 92 U/L (46-116) Aspartate Amino Transferase (AST) 39 U/L (13-40) Total Bilirubin 0.5 mg/dL (0.2-1.0) Urinalysis Test 09/21/24 10:35 Urine Color Yellow (Yellow) Urine Clarity Clear (Clear) Urine pH 6.0 (5.0-9.0) Urine Specific [place] 1.022 (1.001-1.035) Urine Protein Negative (Negative) Urine Ketones Negative (Negative) Urine Blood Negative /uL (Negative) Urine Nitrite Negative (Negative) Urine Bilirubin Negative (Negative) Urine Urobilinogen Normal mg/dL (Negative) Urine Leukocyte Esterase 2+ /uL (Negative) Urine RBC 2 /hpf (0 - 4) Urine Microscopic WBC 10 /HPF (0-5) H Urine Squamous Epithelial Cells Few /hpf (<5) Urine Bacteria None seen /hpf (None Seen) Urine Creatinine 64.58 mg/dL (30.0-125.0) Urine Protein/Creatinine Ratio 0.41 Urine Sodium 35 mmol/L (40-220) L Urine Glucose 3+ mg/dL (Normal) H Urine Total Protein 26.8 mg/dL (1-14) H Blood Gas Results Test 09/22/24 07:10 Arterial Blood pH 7.529 (7.350-7.450) FiO2 % 30.0 Microbiology Microbiology Date/Time Source Procedure Growth Status 09/21/24 01:59 Blood Blood Culture - Preliminary NO GROWTH AFTER 24 HOURS OF INCUBATION. Resulted Labs and/or images reviewed: Labs reviewed by me, Image(s) reviewed by me Assessment/Plan Assessment/Plan Acute Hypoxic respiratory failure status post intubated on ventilator, on 30% percent FiO2 continue pressors and sedation, pulmonary consult for Dr. Esposito appreciated Bacteremia with Gram-negative rods Septic Shock with elevated white count altered mental status possibly secondary to urinary tract infection: Blood cultures growing Gram-negative rods, urine cultures pending, continue Zosyn Hypertension Dementia Acute kidney injury with BUN creatinine 121 and 1.[address] Jefferson appreciated Acute hyperkalemia potassium 5.8 treatment per hyperkalemia protocol Acute lactic acidosis Acute metabolic encephalopathy Patient came from board and care Patient is hospice revoked Condition guarded Time spent 70 minutes Patient is full code Advanced care planning time 20 minutes Patient is seen in [facility] Plan discussed with: Patient My Orders Orders - MARY BETH WOMACK MD Procedure Category Date Status Time Urine Bacterial AYO 09/21/24 In Process Culture 12:58 *Dr. Issac Mckeon CONS 09/21/24 Transmitted -[place] 12:59 *Consult CONS 09/21/24 Transmitted / 13:00 Apply Barrier Cream SG 09/21/24 In Process 11:21 * Dietary Consult CONS 09/21/24 Transmitted 14:59 Midazolam Drip 50 PHA 09/21/24 In Process Mg/50ml (Versed Drip 5 15:30 Mrsa Screen AYO 09/21/24 In Process 17:31 Chest Portable XY 09/22/24 Resulted 04:00 Date of Service: Sep 22, 2024 Billing Provider: MARY BETH WOMACK MD Common Visit Codes: [id number] CARE 30-74 MIN MARY BETH WOMACK MD Sep 22, 2024 09:13
[2024-09-22] MEDS ORDERED: Jevity 1.2 Cal/Fiber 1 Liter NG SCH (09:45)
[2024-09-22] MEDS: PANTOPRAZOLE 40 MG/10 ML VIAL INJ IV SCH (10:15)
[2024-09-22] MEDS: ENOXAPARIN SOD 30 MG/0.3 ML SYRINGE IV SCH (10:16)
[2024-09-22] MEDS ORDERED: cloNIDine HCL 0.1 MG TAB PO ONE (11:00)
--- NOTE | 2024-09-22 13:49 | DVHPN2 ---
Progress Note Date Seen: Sep 22, 2024 Medical Necessity Reason Pt with a Central, PICC or Fol: No Subjective Patient reports: Other (intubated) Review of Systems: RESPIRATORY:Abnormal Objective vital signs Vital Sign Date Time Temp Pulse Resp B/P (MAP) Pulse Ox O2 Delivery O2 Flow Rate FiO2 09/22/24 13:38 82 09/22/24 13:38 30 09/22/24 13:38 16 100 Mechanical Ventilator+ 09/22/24 13:30 99.0 88/67 (74) 210.2 09/21/24 01:45 2 Total Intake and Output 09/21/24 09/21/24 09/22/24 15:00 23:00 07:00 Intake Total 235.0 ml 1036.50 ml 1598.00 ml Output Total 850 ml 450 ml Balance 235.0 ml 186.50 ml 1148.00 ml medications Current Medications Medications Dose Ordered Sig/Ijeoma Route Start Time Stop Time Status Last Admin Dose Admin Propofol 100 ml @ 1.5 mls/hr Q24H IV 09/21/24 02:30 09/22/24 01:16 7.5 MLS/HR Norepinephrine Bitartrate 250 ml @ 3.75 mls/hr Q24H IV 09/21/24 02:30 09/21/24 03:25 3.75 MLS/HR Famotidine 20 mg DAILY IV 09/21/24 10:00 09/22/24 07:31 20 MG Piperacillin Sod/ Tazobactam Sod 100 ml @ 25 mls/hr Q12HR IV 09/21/24 10:00 09/22/24 07:31 25 MLS/HR Hydralazine HCl 10 mg Q6HP PRN IV 09/21/24 04:15 Sodium Chloride 10 ml Q8HR IV 09/21/24 06:00 09/22/24 07:32 10 ML Ondansetron HCl 4 mg Q4HP PRN IV 09/21/24 04:15 Purified Water 200 ml Q4HR GT 09/21/24 06:00 09/22/24 07:32 200 ML Nitroglycerin 0.4 mg Q5MINP PRN SL 09/21/24 06:00 Morphine Sulfate 2 mg Q30M PRN IV 09/21/24 06:00 Sodium Chloride 1,000 ml @ 100 mls/hr Q10H IV 09/21/24 10:45 09/22/24 10:17 100 MLS/HR Midazolam HCl 50 ml @ 1 mls/hr Q24H IV 09/21/24 15:30 09/21/24 16:16 1 MLS/HR Enoxaparin Sodium 30 mg DAILY IV 09/22/24 10:00 09/22/24 10:16 30 MG Enteral Nutritional Formula 1,000 ml 30ML/HR NG 09/22/24 09:45 Pantoprazole Sodium 40 mg DAILY IV 09/22/24 10:00 09/22/24 10:15 40 MG Dexmedetomidine HCl 400 mcg/ Dextrose 100 ml @ 2.5 mls/hr Q24H IV 09/22/24 12:15 Examination: GENERAL:Abnormal, NECK:Normal, CVS:Normal, ABDOMEN:Normal laboratory and microbiology Laboratory Tests 09/22/24 05:01 Test 09/22/24 05:01 Range/Units Serum Glucose 130 H 74-106 mg/dL Microbiology Date/Time Source Procedure Growth Status 09/21/24 10:35 Voided Urine Urine Culture - Preliminary Resulted 09/21/24 02:15 Sputum Gram Stain - Final Resulted 09/21/24 02:15 Sputum Respiratory Culture - Preliminary Resulted 09/21/24 01:59 Blood Blood Culture - Preliminary NO GROWTH AFTER 24 HOURS OF INCUBATION. Resulted Problem List/Assessment/Plan Problem List/Assessment/Plan Acute kidney injury superimposed Chronic Kidney Disease secondary hemodynamic mediated Acute respiratory failure, patient intubated on ventilator Hypernatremia due to dehydration Hyperkalemia Sepsis Urinary tract infection NSTEMI Anemia of chronic kidney disease hypotonic fluids Avoid nephrotoxic medications Vaughn catheter Strict I&Os IV antibiotics Plan discussed with: Other Dietary Evaluation Review Recommendations by RD: Protein Supplementation Comments: 1) Initiate Pro-Stat @ 30 mL qd 2) Consult nephrology if vitamin C @ 500 mg bid and zinc sulfate @ 220 mg qd are appropriate d/t patient's renal function 3) If patient remains NPO > 7 days, consider EN/TPN to meet at least 75% estimated daily needs 4) If GI route is preferred, consider Vital AF1.2 @ 30 mL/hr goal rate as tolerated. Flush with 200 mL free H2O Q6H. Goal rate will provide 1241 kcals (including Propofol and Pro-Stat), 69g Pro (including Pro-Stat), and 1106 mL free H2O per 24 hrs. TF regimen will meet ~ 99% estimated daily energy needs and 91% estimated daily protein needs. Note, estimated energy needs using 25 kcal/kg to prevent overfeeding. Note, if Propofol is d/c increase rate to 40 mL/hr. 5)Advance to regular diet when medically feasible, pending GREEN FEED ATTENDANT approval 6) Continue to monitor I&O, labs, and skin integrity Expected Outcomes/Goals: 1) patient to receive nutrition support within 7 days of NPO status 2) labs and wounds to improve 3) diet to advance 4) f/u in 2-3 days SONYA CURRY MD Sep 22, 2024 13:49
[2024-09-22] MEDS ORDERED: DONETAB5 PO (17:37)
[2024-09-22] MEDS ORDERED: ACET500T58 PO (17:37)
[2024-09-22] MEDS ORDERED: QUET100T47 PO (17:37)
[2024-09-22] MEDS ORDERED: CLON0.5T3 PO (17:37)
[2024-09-22] MEDS ORDERED: TRAZ-227 PO (17:37)
[2024-09-22] MEDS ORDERED: DIVA250T12 PO (17:37)
[2024-09-22] MEDS: ACETAMINOPHEN 325 MG TAB PO PRN (17:49)
[2024-09-22] MEDS: Vital AF 1.2 Cal 1 liter bottle GT SCH (20:25)
--- NOTE | 2024-09-22 22:15 | DVHPN2 ---
Progress Note - Dictate Date Seen: Sep 22, 2024 Medical Necessity Reason Pt with a Central, PICC or Fol: Yes The following are medically ne: Navarro Catheter Reason for navarro catheter: Strict I&O Subjective Patient seen and examined at bedside. Sedated, intubated on mechanical ventilator. Overnight events reviewed. vital signs Vital Sign Date Time Temp Pulse Resp B/P (MAP) Pulse Ox O2 Delivery O2 Flow Rate FiO2 09/22/24 21:40 74 17 128/59 (82) 100 30 09/22/24 20:45 99.3 210.7 09/22/24 20:00 Mechanical Ventilator+ 09/21/24 01:45 2 Total Intake and Output 09/21/24 09/21/24 09/22/24 15:00 23:00 07:00 Intake Total 235.0 ml 1036.50 ml 1598.00 ml Output Total 850 ml 450 ml Balance 235.0 ml 186.50 ml 1148.00 ml medications Current Medications Medications Dose Ordered Sig/Ijeoma Route Start Time Stop Time Status Last Admin Dose Admin Propofol 100 ml @ 1.5 mls/hr Q24H IV 09/21/24 02:30 09/22/24 18:32 1.5 MLS/HR Norepinephrine Bitartrate 250 ml @ 3.75 mls/hr Q24H IV 09/21/24 02:30 09/21/24 03:25 3.75 MLS/HR Famotidine 20 mg DAILY IV 09/21/24 10:00 09/22/24 07:31 20 MG Piperacillin Sod/ Tazobactam Sod 100 ml @ 25 mls/hr Q12HR IV 09/21/24 10:00 09/22/24 22:04 25 MLS/HR Hydralazine HCl 10 mg Q6HP PRN IV 09/21/24 04:15 Sodium Chloride 10 ml Q8HR IV 09/21/24 06:00 09/22/24 22:02 10 ML Ondansetron HCl 4 mg Q4HP PRN IV 09/21/24 04:15 Purified Water 200 ml Q4HR GT 09/21/24 06:00 09/22/24 22:06 200 ML Nitroglycerin 0.4 mg Q5MINP PRN SL 09/21/24 06:00 Morphine Sulfate 2 mg Q30M PRN IV 09/21/24 06:00 Sodium Chloride 1,000 ml @ 100 mls/hr Q10H IV 09/21/24 10:45 09/22/24 20:22 100 MLS/HR Midazolam HCl 50 ml @ 1 mls/hr Q24H IV 09/21/24 15:30 09/21/24 16:16 1 MLS/HR Enoxaparin Sodium 30 mg DAILY IV 09/22/24 10:00 09/22/24 10:16 30 MG Pantoprazole Sodium 40 mg DAILY IV 09/22/24 10:00 09/22/24 10:15 40 MG Dexmedetomidine HCl 400 mcg/ Dextrose 100 ml @ 2.5 mls/hr Q24H IV 09/22/24 12:15 09/22/24 16:57 2.5 MLS/HR Enteral Nutritional Formula 1,000 ml 30ML/HR GT 09/22/24 14:30 09/22/24 20:25 1,000 ML Acetaminophen 650 mg Q6HP PRN PO 09/22/24 17:45 09/22/24 17:49 650 MG objective Gen.: Patient lying in bed in medical ICU. Sedated, intubated on mechanical ventilator. Head: Normocephalic, atraumatic. Eyes: PERRLA. Ears: Normal external anatomy. Throat: Endotracheal tube and orogastric tube in place. Neck: Supple, trachea midline. Chest: Transmitted breath sounds bilaterally. Decreased air entry bilaterally. No wheezing. Bibasilar crackles. Cardio vascular: Positive S1, positive S2. Regular rate and rhythm. Abdomen: Positive bowel sounds in all 4 quadrants. Soft, nontender, nondistended. : Navarro in place. Normal external genitalia. Rectal: Deferred Skin: Warm, dry. Intact. Extremities: 2+ radial pulses bilaterally. No lower extremity edema. Neuro: Sedated. laboratory and microbiology Laboratory Tests 09/22/24 05:01 Test 09/22/24 05:01 Range/Units Serum Glucose 130 H 74-106 mg/dL Assessment/Plan Impression: Acute hypoxic respiratory failure On mechanical ventilator Septic shock Metabolic encephalopathy, acute Acute on chronic renal failure Abnormal liver function tests Sacral decubitus ulcer Pressure ulcer of the sacral region, stage IV Cachexia, BMI 18.3 Lactic acidosis Anemia Events: Remains on vent support On assist control with respiratory rate of 16, tidal volume 450, PEEP of 5, FiO2 at 30%. Sedated on Propofol, Versed. Precedex drip Off Levophed, hemodynamically stable. Continue antibiotics IV fluids at 100 ml/hr. Stop sedation CPAP with PS 8, PEEP of 10 ABG reviewed, notable for alkalemia CXR reviewed, patchy bilateral airspace disease. Devices in place. Labs and imaging reviewed. Rest of plan as noted below. Plan: s/p intubation on mechanical ventilator On assist control with respiratory rate of 16, tidal volume 450, PEEP of 5, FiO2 at 30%. Titrate FIO2 to keep O2 saturation above 92%. VAP bundle Daily ABG and CXR while intubated. Sedate for ventilatory synchrony Pressors if necessary for hemodynamic support. Titrate to keep MAP above 65 mmHg/SBP above 90 mmHg. Continue antibiotics. F/u cultures. Monitor renal function due to Acute kidney injury. Monitor electrolytes. Supplement as necessary. Follow up Nephrology recommendations. Receiving free water via NG tube Nutritional support. Accucheks, ISS. GI prophylaxis-Pepcid DVT prophylaxis. Recommend SCDs Condition: Critical Prognosis: Poor given multiple comorbidities. Rest of plan per hospitalist and other consultants. A total of 35 minutes of critical care time was spent reviewing the patient record, examining the patient, making a diagnostic and therapeutic plan, discussing this plan with the medical personnel, following up on diagnostic studies and following the patient for clinical stability excluding any and all procedures. At least 50% of this time was spent in direct, [id number] contact. Thank you Dr. Mary Saravia for allowing me to participate in this patient's care. Further recommendations will depend on patient's clinical course. Please do not hesitate to contact me if you have any questions or concerns. This medical document was created using an electronic medical record system with [employer]ation system. Although this document has been carefully reviewed, there may still be some phonetic and typographical errors. These areas are purely typographical due to imperfections of the software programs, and do not reflect any compromise in the patient's medical care. Dietary Evaluation Review Recommendations by RD: Protein Supplementation Comments: 1) Initiate Pro-Stat @ 30 mL qd 2) Consult nephrology if vitamin C @ 500 mg bid and zinc sulfate @ 220 mg qd are appropriate d/t patient's renal function 3) If patient remains NPO > 7 days, consider EN/TPN to meet at least 75% estimated daily needs 4) If GI route is preferred, consider Vital AF1.2 @ 30 mL/hr goal rate as tolerated. Flush with 200 mL free H2O Q6H. Goal rate will provide 1241 kcals (including Propofol and Pro-Stat), 69g Pro (including Pro-Stat), and 1106 mL free H2O per 24 hrs. TF regimen will meet ~ 99% estimated daily energy needs and 91% estimated daily protein needs. Note, estimated energy needs using 25 kcal/kg to prevent overfeeding. Note, if Propofol is d/c increase rate to 40 mL/hr. 5)Advance to regular diet when medically feasible, pending SCALER approval 6) Continue to monitor I&O, labs, and skin integrity Expected Outcomes/Goals: 1) patient to receive nutrition support within 7 days of NPO status 2) labs and wounds to improve 3) diet to advance 4) f/u in 2-3 days Plan discussed with: Other (JASON Carrasquillo) Critical Care Time(min): 35 ROBERT MCKINNON MD Sep 22, 2024 22:15
[2024-09-23] VITALS (87 sets, daily range): BP systolic 84–122; BP diastolic 40–77; PULSE 57–105; RESP 11–23; TEMP 98.4–101.3; O2SAT 72–100
[2024-09-23 05:50] LABS: Potassium 3.9 mmol/L (3.5-5.1); Sodium 141 mmol/L (136-145)
[2024-09-23 05:51] LABS: Anion Gap 7 (5-15); Carbon Dioxide 24 mmol/L (20-31)
[2024-09-23 05:52] LABS: Chloride 110 mmol/L (98-107)
[2024-09-23 05:57] LABS: BUN/Creatinine Ratio 44.8 (10.0-20.0); Blood Urea Nitrogen 39 mg/dL (9-23); Glucose 101 mg/dL (74-106)
[2024-09-23 06:13] LABS: Calcium 8.5 mg/dL (8.7-10.4)
--- NOTE | 2024-09-23 08:31 | DVHPN2 ---
Reviewed: Care Plan, H&P, Labs, Medications, Previous Orders, Radiology Changes from previous H/P or p: No Changes Eyes: No Pain, No Vision change, No Conjunctivae inflammation, No Eyelid inflammation, No Other, No Redness ENT: No Ear pain, No Ear discharge, No Nose pain, No Nose discharge, No Nose congestion, No Mouth pain, No Mouth swelling, No Throat pain, No Throat swelling, No Other Cardiovascular: No Chest Pain, No Palpitations, No Orthopnea, No Paroxysmal Noc. Dyspnea, No Edema, No Lt Headedness, No Other Respiratory: No Cough, No Dry; Shortness of breath; No SOB with excertion, No Wheezing, No Hemoptysis, No Pleuritic Pain, No Sputum, No Other Gastrointestinal: No Nausea, No Vomiting, No Abdominal Pain, No Diarrhea, No Constipation, No Melena, No Hematochezia, No Other Genitourinary: No Dysuria, No Frequency, No Incontinence, No Hematuria, No Retention, No Other Musculoskeletal: No other, No neck pain, No shoulder pain, No arm pain, No back pain, No hand pain, No leg pain, No foot pain Skin: No Rash, No Lesions, No Jaundice, No Bruising; Other (Sacral decubitus ulcer) Objective Vitals Vital Signs Date Time Temp Pulse Resp B/P (MAP) Pulse Ox O2 Delivery O2 Flow Rate FiO2 09/23/24 08:00 99.0 89 20 107/77 (87) 72 210.2 09/23/24 06:25 30 09/23/24 06:00 Mechanical Ventilator+ Intake/Output Intake and Output 09/23/24 07:00 Intake Total 3864.60 ml Output Total 900 ml Balance 2964.60 ml Intake Oral 1250 ml IV Total 2554.60 ml Tube Feeding 60 ml Output Urine Total 900 ml # Bowel Movements 1 Medications Current Medications Medications Dose Ordered Sig/Ijeoma Route Start Time Stop Time Status Last Admin Dose Admin Propofol 100 ml @ 1.5 mls/hr Q24H IV 09/21/24 02:30 09/22/24 18:32 1.5 MLS/HR Norepinephrine Bitartrate 250 ml @ 3.75 mls/hr Q24H IV 09/21/24 02:30 09/21/24 03:25 3.75 MLS/HR Famotidine 20 mg DAILY IV 09/21/24 10:00 09/22/24 07:31 20 MG Piperacillin Sod/ Tazobactam Sod 100 ml @ 25 mls/hr Q12HR IV 09/21/24 10:00 09/22/24 22:04 25 MLS/HR Hydralazine HCl 10 mg Q6HP PRN IV 09/21/24 04:15 Sodium Chloride 10 ml Q8HR IV 09/21/24 06:00 09/23/24 05:37 10 ML Ondansetron HCl 4 mg Q4HP PRN IV 09/21/24 04:15 Purified Water 200 ml Q4HR GT 09/21/24 06:00 09/23/24 05:38 200 ML Nitroglycerin 0.4 mg Q5MINP PRN SL 09/21/24 06:00 Morphine Sulfate 2 mg Q30M PRN IV 09/21/24 06:00 Sodium Chloride 1,000 ml @ 100 mls/hr Q10H IV 09/21/24 10:45 09/23/24 05:38 100 MLS/HR Midazolam HCl 50 ml @ 1 mls/hr Q24H IV 09/21/24 15:30 09/21/24 16:16 1 MLS/HR Enoxaparin Sodium 30 mg DAILY IV 09/22/24 10:00 09/22/24 10:16 30 MG Pantoprazole Sodium 40 mg DAILY IV 09/22/24 10:00 09/22/24 10:15 40 MG Dexmedetomidine HCl 400 mcg/ Dextrose 100 ml @ 2.5 mls/hr Q24H IV 09/22/24 12:15 09/22/24 16:57 2.5 MLS/HR Enteral Nutritional Formula 1,000 ml 30ML/HR GT 09/22/24 14:30 09/22/24 20:25 1,000 ML Acetaminophen 650 mg Q6HP PRN PO 09/22/24 17:45 09/22/24 17:49 650 MG Laboratory Results Laboratory Tests 09/22/24 05:01 09/23/24 05:17 Chemistry Test 09/23/24 05:17 Calcium Level 8.5 mg/dL (8.7-10.4) L Urinalysis Test 09/21/24 10:35 Urine Color Yellow (Yellow) Urine Clarity Clear (Clear) Urine pH 6.0 (5.0-9.0) Urine Specific [place] 1.022 (1.001-1.035) Urine Protein Negative (Negative) Urine Ketones Negative (Negative) Urine Blood Negative /uL (Negative) Urine Nitrite Negative (Negative) Urine Bilirubin Negative (Negative) Urine Urobilinogen Normal mg/dL (Negative) Urine Leukocyte Esterase 2+ /uL (Negative) Urine RBC 2 /hpf (0 - 4) Urine Microscopic WBC 10 /HPF (0-5) H Urine Squamous Epithelial Cells Few /hpf (<5) Urine Bacteria None seen /hpf (None Seen) Urine Creatinine 64.58 mg/dL (30.0-125.0) Urine Protein/Creatinine Ratio 0.41 Urine Sodium 35 mmol/L (40-220) L Urine Glucose 3+ mg/dL (Normal) H Urine Total Protein 26.8 mg/dL (1-14) H Microbiology Microbiology Date/Time Source Procedure Growth Status 09/21/24 17:13 Nose MRSA Screen - Final Complete 09/21/24 10:35 Voided Urine Urine Culture - Preliminary Resulted 09/21/24 02:15 Sputum Gram Stain - Final Resulted 09/21/24 02:15 Sputum Respiratory Culture - Preliminary Resulted 09/21/24 01:59 Blood Blood Culture - Preliminary NO GROWTH AFTER 48 HOURS OF INCUBATION. Resulted Labs and/or images reviewed: Labs reviewed by me, Image(s) reviewed by me Assessment/Plan Assessment/Plan Acute Hypoxic respiratory failure status post intubated on ventilator, on 30% percent FiO2 continue pressors and sedation, pulmonary consult for Dr. Esposito appreciated Bacteremia with Gram-negative rods: Continue Zosyn Bilateral community-acquired pneumonia: zosyn Sputum cultures growing Gram-negative rods Septic Shock with elevated white count altered mental status possibly secondary to pneumonia Hypertension Dementia Acute kidney injury with BUN creatinine 121 and 1.[address] Jefferson appreciated Acute hyperkalemia potassium 5.8 treatment per hyperkalemia protocol Acute lactic acidosis Acute metabolic encephalopathy Patient came from board and care Patient is hospice revoked Rapid flu test and Jo test ordered Condition guarded Time spent 65 minutes Patient is full code Advanced care planning time 20 minutes Patient is seen in [facility] Spoke with pts daughter Marta [phone] on the phone and advised the current condition of the pt, she lives in [facility] Plan discussed with: Patient My Orders Orders - MARY BETH WOMACK MD Procedure Category Date Status Time Enoxaparin Sodium PHA 09/22/24 In Process (Lovenox) 10:00 Pantoprazole PHA 09/22/24 In Process (Protonix) 10:00 Tube Feeding DIET 09/22/24 Transmitted Lunch Wound Culture W/ Gs AYO 09/22/24 In Process 15:14 Nutritional PHA 09/22/24 In Process Supplements (Vital Af 14:30 Date of Service: Sep 23, 2024 Billing Provider: MARY BETH WOMACK MD Common Visit Codes: [id number] INP/OBS CARE(HIGH) MARY BETH WOMACK MD Sep 23, 2024 08:31
[2024-09-23 09:28] LABS: Base Excess 1.3 mmol/L (-2.0-3.0)
--- NOTE | 2024-09-23 10:56 | DVH ---
EXAM: XY CHEST PORTABLE Indication: EFFUSION/TUBE PLACEMENT Technique: Single frontal view of the chest was obtained Comparison: XY CHEST PORTABLE on DOS: 08/24/24, XY CHEST XRAY 1 VIEW on DOS: 12/28/23 FINDINGS: Lines and Tubes: Endotracheal tube is at the level of the mayelin. Recommend retraction. Enteric tub e projects over the expected region of the stomach. Lungs: Mild interstitial opacities. Pleura: No effusion. No pneumothorax. Cardiomediastinal contours: Unremarkable Bones: No acute osseous abnormality. IMPRESSION: Endotracheal tube is at the level of the mayelin. Recommend retraction
--- NOTE | 2024-09-23 11:12 | DVHPN2 ---
Progress Note Date Seen: Sep 23, 2024 Medical Necessity Reason Pt with a Central, PICC or Fol: No Subjective Patient reports: Feels better Objective vital signs Vital Sign Date Time Temp Pulse Resp B/P (MAP) Pulse Ox O2 Delivery O2 Flow Rate FiO2 09/23/24 08:00 99.0 89 20 107/77 (87) 72 210.2 09/23/24 07:35 30 09/23/24 06:00 Mechanical Ventilator+ Total Intake and Output 09/22/24 09/22/24 09/23/24 15:00 23:00 07:00 Intake Total 885.60 ml 1484.75 ml 1494.25 ml Output Total 450 ml 450 ml Balance 885.60 ml 1034.75 ml 1044.25 ml medications Current Medications Medications Dose Ordered Sig/Ijeoma Route Start Time Stop Time Status Last Admin Dose Admin Propofol 100 ml @ 1.5 mls/hr Q24H IV 09/21/24 02:30 09/22/24 18:32 1.5 MLS/HR Norepinephrine Bitartrate 250 ml @ 3.75 mls/hr Q24H IV 09/21/24 02:30 09/21/24 03:25 3.75 MLS/HR Famotidine 20 mg DAILY IV 09/21/24 10:00 09/23/24 10:06 20 MG Piperacillin Sod/ Tazobactam Sod 100 ml @ 25 mls/hr Q12HR IV 09/21/24 10:00 09/23/24 10:05 25 MLS/HR Hydralazine HCl 10 mg Q6HP PRN IV 09/21/24 04:15 Sodium Chloride 10 ml Q8HR IV 09/21/24 06:00 09/23/24 05:37 10 ML Ondansetron HCl 4 mg Q4HP PRN IV 09/21/24 04:15 Purified Water 200 ml Q4HR GT 09/21/24 06:00 09/23/24 10:06 200 ML Nitroglycerin 0.4 mg Q5MINP PRN SL 09/21/24 06:00 Morphine Sulfate 2 mg Q30M PRN IV 09/21/24 06:00 Sodium Chloride 1,000 ml @ 100 mls/hr Q10H IV 09/21/24 10:45 09/23/24 05:38 100 MLS/HR Midazolam HCl 50 ml @ 1 mls/hr Q24H IV 09/21/24 15:30 09/21/24 16:16 1 MLS/HR Enoxaparin Sodium 30 mg DAILY IV 09/22/24 10:00 09/23/24 10:06 30 MG Pantoprazole Sodium 40 mg DAILY IV 09/22/24 10:00 09/23/24 10:06 40 MG Dexmedetomidine HCl 400 mcg/ Dextrose 100 ml @ 2.5 mls/hr Q24H IV 09/22/24 12:15 09/22/24 16:57 2.5 MLS/HR Enteral Nutritional Formula 1,000 ml 30ML/HR GT 09/22/24 14:30 09/22/24 20:25 1,000 ML Acetaminophen 650 mg Q6HP PRN PO 09/22/24 17:45 09/22/24 17:49 650 MG Examination: GENERAL:Abnormal, LUNGS:Abnormal laboratory and microbiology Laboratory Tests 09/23/24 05:17 09/22/24 05:01 Test 09/23/24 05:17 Range/Units Serum Glucose 101 74-106 mg/dL Microbiology Date/Time Source Procedure Growth Status 09/21/24 17:13 Nose MRSA Screen - Final Complete 09/21/24 10:35 Voided Urine Urine Culture - Preliminary Resulted 09/21/24 02:15 Sputum Gram Stain - Final Complete 09/21/24 02:15 Respiratory Culture - Final Enterobacter aerogenes Complete 09/21/24 01:59 Blood Blood Culture - Preliminary Proteus mirabilis Resulted Problem List/Assessment/Plan Problem List/Assessment/Plan Acute kidney injury superimposed Chronic Kidney Disease secondary hemodynamic mediated Acute respiratory failure, patient intubated on ventilator Hypernatremia due to dehydration Hyperkalemia Sepsis Urinary tract infection NSTEMI Anemia of chronic kidney disease hypotonic fluids IV dc OGT free water possible extubation today Avoid nephrotoxic medications Vaughn catheter Strict I&Os IV antibiotics Plan discussed with: Other Dietary Evaluation Review Recommendations by RD: Protein Supplementation Comments: 1) Initiate Pro-Stat @ 30 mL qd 2) Consult nephrology if vitamin C @ 500 mg bid and zinc sulfate @ 220 mg qd are appropriate d/t patient's renal function 3) If patient remains NPO > 7 days, consider EN/TPN to meet at least 75% estimated daily needs 4) If GI route is preferred, consider Vital AF1.2 @ 30 mL/hr goal rate as tolerated. Flush with 200 mL free H2O Q6H. Goal rate will provide 1241 kcals (including Propofol and Pro-Stat), 69g Pro (including Pro-Stat), and 1106 mL free H2O per 24 hrs. TF regimen will meet ~ 99% estimated daily energy needs and 91% estimated daily protein needs. Note, estimated energy needs using 25 kcal/kg to prevent overfeeding. Note, if Propofol is d/c increase rate to 40 mL/hr. 5)Advance to regular diet when medically feasible, pending TRACTOR ENGINE MECHANIC approval 6) Continue to monitor I&O, labs, and skin integrity Expected Outcomes/Goals: 1) patient to receive nutrition support within 7 days of NPO status 2) labs and wounds to improve 3) diet to advance 4) f/u in 2-3 days SONYA CURRY MD Sep 23, 2024 11:12
[2024-09-23 16:42] LABS: Base Excess -0.7 mmol/L (-2.0-3.0)
[2024-09-23] MEDS: PIPERACILLIN-TAZOB 3.375GM 100 ML IV SCH (17:34)
[2024-09-23 22:39] LABS: COVID19 ANTIGEN SOFIA FIA NEGATIVE (NEGATIVE); Rapid Influenza A Negative (Negative); Rapid Influenza B Negative (Negative)
--- NOTE | 2024-09-23 23:26 | DVHPN2 ---
Progress Note - Dictate Date Seen: Sep 23, 2024 Medical Necessity Reason Pt with a Central, PICC or Fol: Yes The following are medically ne: Navarro Catheter Reason for navarro catheter: Strict I&O Subjective Patient seen and examined at bedside. S/p extubation, on supplemental oxygen Overnight events reviewed. vital signs Vital Sign Date Time Temp Pulse Resp B/P (MAP) Pulse Ox O2 Delivery O2 Flow Rate FiO2 09/23/24 22:45 98.8 74 14 109/59 (76) 100 209.8 09/23/24 22:00 Nasal Cannula* 1 24 Total Intake and Output 09/22/24 09/22/24 09/23/24 15:00 23:00 07:00 Intake Total 885.60 ml 1484.75 ml 1600.75 ml Output Total 450 ml 450 ml Balance 885.60 ml 1034.75 ml 1150.75 ml medications Current Medications Medications Dose Ordered Sig/Ijeoma Route Start Time Stop Time Status Last Admin Dose Admin Propofol 100 ml @ 1.5 mls/hr Q24H IV 09/21/24 02:30 09/22/24 18:32 1.5 MLS/HR Norepinephrine Bitartrate 250 ml @ 3.75 mls/hr Q24H IV 09/21/24 02:30 09/21/24 03:25 3.75 MLS/HR Famotidine 20 mg DAILY IV 09/21/24 10:00 09/23/24 10:06 20 MG Hydralazine HCl 10 mg Q6HP PRN IV 09/21/24 04:15 Sodium Chloride 10 ml Q8HR IV 09/21/24 06:00 09/23/24 22:00 10 ML Ondansetron HCl 4 mg Q4HP PRN IV 09/21/24 04:15 Nitroglycerin 0.4 mg Q5MINP PRN SL 09/21/24 06:00 Morphine Sulfate 2 mg Q30M PRN IV 09/21/24 06:00 Sodium Chloride 1,000 ml @ 100 mls/hr Q10H IV 09/21/24 10:45 09/23/24 17:33 100 MLS/HR Midazolam HCl 50 ml @ 1 mls/hr Q24H IV 09/21/24 15:30 09/21/24 16:16 1 MLS/HR Enoxaparin Sodium 30 mg DAILY IV 09/22/24 10:00 09/23/24 10:06 30 MG Pantoprazole Sodium 40 mg DAILY IV 09/22/24 10:00 09/23/24 10:06 40 MG Dexmedetomidine HCl 400 mcg/ Dextrose 100 ml @ 2.5 mls/hr Q24H IV 09/22/24 12:15 09/22/24 16:57 2.5 MLS/HR Enteral Nutritional Formula 1,000 ml 30ML/HR GT 09/22/24 14:30 09/22/24 20:25 1,000 ML Acetaminophen 650 mg Q6HP PRN PO 09/22/24 17:45 09/23/24 12:28 650 MG Piperacillin Sod/ Tazobactam Sod 100 ml @ 25 mls/hr Q8H IV 09/23/24 18:00 09/23/24 17:34 25 MLS/HR objective Gen.: Patient lying in bed in no apparent distress. On supplemental oxygen. Head: Normocephalic, atraumatic. Eyes: EOMI/PERRLA. Ears: Normal hearing. Normal anatomy. Neck/trachea: Trachea midline, supple. Nose: Normal external anatomy. Mouth: Moist mucous membranes. Chest: Decreased air entry bilaterally. No wheezing or rhonchi. Cardiovascular: Positive S1, positive S2. Regular rate and rhythm. Abdomen: Positive bowel sounds in all 4 quadrants. Soft, non-tender, non- distended. : Deferred. Rectal: Deferred. Skin: Warm, dry. Intact. Extremities: 2+ radial pulses bilaterally. No lower extremity edema. Neuro: Awake, alert, oriented x3. No gross motor or sensory deficits. Cranial nerves II through XII intact. Gait not assessed. laboratory and microbiology Laboratory Tests 09/23/24 05:17 09/22/24 05:01 Test 09/23/24 05:17 Range/Units Serum Glucose 101 74-106 mg/dL Assessment/Plan Impression: Acute hypoxic respiratory failure On mechanical ventilator Septic shock Metabolic encephalopathy, acute Acute on chronic renal failure Abnormal liver function tests Sacral decubitus ulcer Pressure ulcer of the sacral region, stage IV Cachexia, BMI 18.3 Lactic acidosis Anemia Events: Patient tolerated CPAP and was extubated uneventfully today Placed on aerosol 8 L @ 35% cool mist mask Taper O2 as tolerated Continue IV fluids at 100 ml/hr. Off Levophed, hemodynamically stable. Continue antibiotics Continue bronchodilators Nephrology recommendations appreciated. Swallow eval. Labs and imaging reviewed. Rest of plan as noted below. Plan: s/p extubation Continue supplemental oxygen Titrate to keep O2 sats above 90%. Pressors if necessary for hemodynamic support. Titrate to keep MAP above 65 mmHg/SBP above 90 mmHg. Continue antibiotics. F/u cultures. Monitor renal function due to acute kidney injury. Monitor electrolytes. Supplement as necessary. Follow up Nephrology recommendations. Receiving free water via NG tube Nutritional support. Accu-Cheks, ISS. GI prophylaxis-Pepcid DVT prophylaxis. Recommend SCDs Condition: Critical Prognosis: Poor given multiple comorbidities. Rest of plan per hospitalist and other consultants. A total of 35 minutes of critical care time was spent reviewing the patient record, examining the patient, making a diagnostic and therapeutic plan, discussing this plan with the medical personnel, following up on diagnostic studies and following the patient for clinical stability excluding any and all procedures. At least 50% of this time was spent in direct, [id number] contact. Thank you Dr. Mary Saravia for allowing me to participate in this patient's care. Further recommendations will depend on patient's clinical course. Please do not hesitate to contact me if you have any questions or concerns. This medical document was created using an electronic medical record system with [employer] dictation system. Although this document has been carefully reviewed, there may still be some phonetic and typographical errors. These areas are purely typographical due to imperfections of the software programs, and do not reflect any compromise in the patient's medical care. Dietary Evaluation Review Recommendations by RD: Protein Supplementation Comments: 1) Initiate Pro-Stat @ 30 mL qd 2) Consult nephrology if vitamin C @ 500 mg bid and zinc sulfate @ 220 mg qd are appropriate d/t patient's renal function 3) If patient remains NPO > 7 days, consider EN/TPN to meet at least 75% estimated daily needs 4) If GI route is preferred, consider Vital AF1.2 @ 30 mL/hr goal rate as tolerated. Flush with 200 mL free H2O Q6H. Goal rate will provide 1241 kcals (including Propofol and Pro-Stat), 69g Pro (including Pro-Stat), and 1106 mL free H2O per 24 hrs. TF regimen will meet ~ 99% estimated daily energy needs and 91% estimated daily protein needs. Note, estimated energy needs using 25 kcal/kg to prevent overfeeding. Note, if Propofol is d/c increase rate to 40 mL/hr. 5)Advance to regular diet when medically feasible, pending THEORETICAL PHYSICIST approval 6) Continue to monitor I&O, labs, and skin integrity Expected Outcomes/Goals: 1) patient to receive nutrition support within 7 days of NPO status 2) labs and wounds to improve 3) diet to advance 4) f/u in 2-3 days Plan discussed with: Other (JASON Bailey) Critical Care Time(min): 35 ROBERT MCKINNON MD Sep 23, 2024 23:26
[2024-09-24] VITALS (42 sets, daily range): BP systolic 98–133; BP diastolic 47–85; PULSE 73–84; RESP 12–24; TEMP 97.3–98.9; O2SAT 96–99
[2024-09-24 05:35] LABS: Basophils # (auto) 0 10 ^3/uL (0-0.2); Basophils % (auto) 0.1 % (0.0-2.0); Eosinophils # (auto) 0.1 10 ^3/uL (0-0.8); Eosinophils % (auto) 0.7 % (0.0-7.0); Hematocrit 25.8 % (36.0-46.0); Hemoglobin 8.8 g/dL (12.2-16.2); Lymphocytes # (auto) 0.6 10 ^3/uL (0.4-5.4); Lymphocytes % (auto) 7.4 % (10.0-50.0); Mean Corpuscular Hemoglobin 31.4 pg (28.0-32.0); Mean Corpuscular Hgb Conc. 34.2 g/dL (32.0-36.0); Mean Corpuscular Volume 91.9 fL (80.0-100.0); Monocytes # (auto) 0.7 10 ^3/uL (0-1.3); Monocytes % (auto) 8.1 % (0.0-12.0); Neutrophils # (auto) 7.1 10 ^3/uL (1.6-8.6); Neutrophils % (auto) 83.7 % (37.0-80.0); Platelet Count (auto) 156 10^3/uL (140-450); Red Cell Distribution Width 15.3 % (11.8-14.3); White Blood Cell 8.5 10^3/uL (4.4-10.8)
[2024-09-24 05:48] LABS: Alanine Aminotransferase 38 U/L (7-40); Alkaline Phosphatase 113 U/L (46-116); Anion Gap 9 (5-15); Carbon Dioxide 22 mmol/L (20-31); Glucose 77 mg/dL (74-106); Magnesium 2.1 mg/dL (1.6-2.6); Sodium 140 mmol/L (136-145); Total Protein 5.9 g/dL (5.7-8.2)
[2024-09-24 05:49] LABS: Bilirubin, Total 0.6 mg/dL (0.2-1.0)
[2024-09-24 05:55] LABS: Aspartate Aminotransferase 73 U/L (13-40); Blood Urea Nitrogen 24 mg/dL (9-23); Calcium 8.3 mg/dL (8.7-10.4); Chloride 109 mmol/L (98-107); Potassium 3.2 mmol/L (3.5-5.1)
[2024-09-24] MEDS ORDERED: POTASSIUM CHL 20MEQ/100ML 100 ML IV SCH (06:45)
[2024-09-24] MEDS: POTASSIUM CHL 20MEQ/50ML 50 ML IV SCH (07:32)
--- NOTE | 2024-09-24 08:21 | DVHPN2 ---
Reviewed: Care Plan, H&P, Labs, Medications, Previous Orders, Radiology Changes from previous H/P or p: Changes (Patient was extubated 09/23/2024) Eyes: No Pain, No Vision change, No Conjunctivae inflammation, No Eyelid inflammation, No Other, No Redness ENT: No Ear pain, No Ear discharge, No Nose pain, No Nose discharge, No Nose congestion, No Mouth pain, No Mouth swelling, No Throat pain, No Throat swelling, No Other Cardiovascular: No Chest Pain, No Palpitations, No Orthopnea, No Paroxysmal Noc. Dyspnea, No Edema, No Lt Headedness, No Other Respiratory: No Cough, No Dry; Shortness of breath; No SOB with excertion, No Wheezing, No Hemoptysis, No Pleuritic Pain, No Sputum, No Other Gastrointestinal: No Nausea, No Vomiting, No Abdominal Pain, No Diarrhea, No Constipation, No Melena, No Hematochezia, No Other Genitourinary: No Dysuria, No Frequency, No Incontinence, No Hematuria, No Retention, No Other Musculoskeletal: No other, No neck pain, No shoulder pain, No arm pain, No back pain, No hand pain, No leg pain, No foot pain Skin: No Rash, No Lesions, No Jaundice, No Bruising; Other (Sacral decubitus ulcer) Objective Vitals Vital Signs Date Time Temp Pulse Resp B/P (MAP) Pulse Ox O2 Delivery O2 Flow Rate FiO2 09/24/24 07:02 98.2 76 15 133/47 (75) 96 208.8 09/24/24 06:00 Room Air* 0 21 Intake/Output Intake and Output 09/24/24 07:00 Intake Total 2606.50 ml Output Total 1050 ml Balance 1556.50 ml Intake Oral 100 ml IV Total 2506.50 ml Output Urine Total 1050 ml # Bowel Movements 4 Medications Current Medications Medications Dose Ordered Sig/Ijeoma Route Start Time Stop Time Status Last Admin Dose Admin Propofol 100 ml @ 1.5 mls/hr Q24H IV 09/21/24 02:30 09/22/24 18:32 1.5 MLS/HR Norepinephrine Bitartrate 250 ml @ 3.75 mls/hr Q24H IV 09/21/24 02:30 09/21/24 03:25 3.75 MLS/HR Famotidine 20 mg DAILY IV 09/21/24 10:00 09/23/24 10:06 20 MG Hydralazine HCl 10 mg Q6HP PRN IV 09/21/24 04:15 Sodium Chloride 10 ml Q8HR IV 09/21/24 06:00 09/24/24 06:33 10 ML Ondansetron HCl 4 mg Q4HP PRN IV 09/21/24 04:15 Nitroglycerin 0.4 mg Q5MINP PRN SL 09/21/24 06:00 Morphine Sulfate 2 mg Q30M PRN IV 09/21/24 06:00 Sodium Chloride 1,000 ml @ 100 mls/hr Q10H IV 09/21/24 10:45 09/23/24 17:33 100 MLS/HR Midazolam HCl 50 ml @ 1 mls/hr Q24H IV 09/21/24 15:30 09/21/24 16:16 1 MLS/HR Enoxaparin Sodium 30 mg DAILY IV 09/22/24 10:00 09/23/24 10:06 30 MG Pantoprazole Sodium 40 mg DAILY IV 09/22/24 10:00 09/23/24 10:06 40 MG Dexmedetomidine HCl 400 mcg/ Dextrose 100 ml @ 2.5 mls/hr Q24H IV 09/22/24 12:15 09/22/24 16:57 2.5 MLS/HR Enteral Nutritional Formula 1,000 ml 30ML/HR GT 09/22/24 14:30 09/22/24 20:25 1,000 ML Acetaminophen 650 mg Q6HP PRN PO 09/22/24 17:45 09/23/24 12:28 650 MG Piperacillin Sod/ Tazobactam Sod 100 ml @ 25 mls/hr Q8H IV 09/23/24 18:00 09/24/24 02:00 25 MLS/HR Potassium Chloride 50 ml @ 25 mls/hr Q2H IV 09/24/24 07:30 09/24/24 11:29 09/24/24 07:32 25 MLS/HR Laboratory Results Laboratory Tests 09/24/24 04:47 Chemistry Test 09/24/24 04:47 Albumin 3.0 g/dL (3.2-4.8) L Calcium Level 8.3 mg/dL (8.7-10.4) L Magnesium Level 2.1 mg/dL (1.6-2.6) Total Protein 5.9 g/dL (5.7-8.2) LFT Test 09/24/24 04:47 Alanine Aminotransferase (ALT) 38 U/L (7-40) Alkaline Phosphatase 113 U/L (46-116) Aspartate Amino Transferase (AST) 73 U/L (13-40) H Total Bilirubin 0.6 mg/dL (0.2-1.0) Urinalysis Test 09/21/24 10:35 Urine Color Yellow (Yellow) Urine Clarity Clear (Clear) Urine pH 6.0 (5.0-9.0) Urine Specific [place] 1.022 (1.001-1.035) Urine Protein Negative (Negative) Urine Ketones Negative (Negative) Urine Blood Negative /uL (Negative) Urine Nitrite Negative (Negative) Urine Bilirubin Negative (Negative) Urine Urobilinogen Normal mg/dL (Negative) Urine Leukocyte Esterase 2+ /uL (Negative) Urine RBC 2 /hpf (0 - 4) Urine Microscopic WBC 10 /HPF (0-5) H Urine Squamous Epithelial Cells Few /hpf (<5) Urine Bacteria None seen /hpf (None Seen) Urine Creatinine 64.58 mg/dL (30.0-125.0) Urine Protein/Creatinine Ratio 0.41 Urine Sodium 35 mmol/L (40-220) L Urine Glucose 3+ mg/dL (Normal) H Urine Total Protein 26.8 mg/dL (1-14) H Blood Gas Results Test 09/23/24 16:36 Arterial Blood pH 7.546 (7.350-7.450) FiO2 % 30.0 Microbiology Microbiology Date/Time Source Procedure Growth Status 09/22/24 14:40 Sacrum Gram Stain - Final Resulted 09/22/24 14:40 Sacrum Wound Culture - Preliminary Resulted 09/21/24 10:35 Voided Urine Urine Culture - Final Complete 09/21/24 02:15 Sputum Gram Stain - Final Complete 09/21/24 02:15 Respiratory Culture - Final Enterobacter aerogenes Complete 09/21/24 01:59 Blood Blood Culture - Preliminary Proteus mirabilis Resulted Labs and/or images reviewed: Labs reviewed by me, Image(s) reviewed by me Assessment/Plan Assessment/Plan Acute Hypoxic respiratory failure status post intubated, extubated on 09/23/[address] Esposito appreciated, currently on room air Bacteremia with Proteus mirabilis: Continue Zosyn Bilateral community-acquired pneumonia: zosyn Sputum cultures growing Enterobacter aerogenes: Start Levaquin 500 mg IV daily Septic Shock with elevated white count altered mental status possibly secondary to pneumonia Hypertension Dementia Acute kidney injury with BUN creatinine 121 and 1.[address] Jefferson appreciated Acute hyperkalemia potassium 5.8 treatment per hyperkalemia protocol Acute lactic acidosis Acute metabolic encephalopathy Patient came from board and care Patient is hospice revoked Rapid flu test negative Jo test negative Condition guarded Time spent 65 minutes Patient is full code Advanced care planning time 20 minutes Patient is seen in [facility] Transfer to tele Wound Care consult Sitter Swallow evaluation Spoke with pts daughter Marta [phone] on the phone and advised the current condition of the pt, she lives in [facility] Plan discussed with: Patient Date of Service: Sep 24, 2024 Billing Provider: MARY BETH WOMACK MD Common Visit Codes: [id number] CARE 30-74 MIN MARY BETH WOMACK MD Sep 24, 2024 08:21
[2024-09-24] MEDS ORDERED: levoFLOXacin 500MG 100 ML IV SCH (10:00)
[2024-09-24] MEDS: Ensure HIGH Protein Chocolate 8oz Bottle PO SCH (12:00)
[2024-09-24] MEDS: levoFLOXacin 500MG 100 ML IV SCH (13:54)
--- NOTE | 2024-09-24 15:02 | DVHPN2 ---
Progress Note Date Seen: Sep 24, 2024 Medical Necessity Reason Pt with a Central, PICC or Fol: Yes The following are medically ne: Navarro Catheter Reason for navarro catheter: Strict I&O Objective vital signs Vital Sign Date Time Temp Pulse Resp B/P (MAP) Pulse Ox O2 Delivery O2 Flow Rate FiO2 09/24/24 14:08 19 97 Room Air* 0 21 09/24/24 14:01 84 114/61 (78) 09/24/24 12:00 98.8 98.8 Total Intake and Output 09/23/24 09/23/24 09/24/24 15:00 23:00 07:00 Intake Total 906.50 ml 800 ml 900 ml Output Total 500 ml 550 ml Balance 906.50 ml 300 ml 350 ml medications Current Medications Medications Dose Ordered Sig/Ijeoma Route Start Time Stop Time Status Last Admin Dose Admin Propofol 100 ml @ 1.5 mls/hr Q24H IV 09/21/24 02:30 09/22/24 18:32 1.5 MLS/HR Norepinephrine Bitartrate 250 ml @ 3.75 mls/hr Q24H IV 09/21/24 02:30 09/21/24 03:25 3.75 MLS/HR Famotidine 20 mg DAILY IV 09/21/24 10:00 09/24/24 10:01 20 MG Hydralazine HCl 10 mg Q6HP PRN IV 09/21/24 04:15 Sodium Chloride 10 ml Q8HR IV 09/21/24 06:00 09/24/24 13:54 10 ML Ondansetron HCl 4 mg Q4HP PRN IV 09/21/24 04:15 Nitroglycerin 0.4 mg Q5MINP PRN SL 09/21/24 06:00 Morphine Sulfate 2 mg Q30M PRN IV 09/21/24 06:00 Sodium Chloride 1,000 ml @ 100 mls/hr Q10H IV 09/21/24 10:45 09/23/24 17:33 100 MLS/HR Midazolam HCl 50 ml @ 1 mls/hr Q24H IV 09/21/24 15:30 09/21/24 16:16 1 MLS/HR Enoxaparin Sodium 30 mg DAILY IV 09/22/24 10:00 09/24/24 10:00 30 MG Pantoprazole Sodium 40 mg DAILY IV 09/22/24 10:00 09/24/24 10:01 40 MG Dexmedetomidine HCl 400 mcg/ Dextrose 100 ml @ 2.5 mls/hr Q24H IV 09/22/24 12:15 09/22/24 16:57 2.5 MLS/HR Enteral Nutritional Formula 1,000 ml 30ML/HR GT 09/22/24 14:30 09/22/24 20:25 1,000 ML Acetaminophen 650 mg Q6HP PRN PO 09/22/24 17:45 09/23/24 12:28 650 MG Enteral Nutritional Formula 240 ml TIDWM PO 09/24/24 12:00 Levofloxacin/ Dextrose 100 ml @ 100 mls/hr DAILY IV 09/24/24 10:38 09/24/24 13:54 100 MLS/HR Examination: GENERAL:Abnormal laboratory and microbiology Laboratory Tests 09/24/24 04:47 Test 09/24/24 04:47 Range/Units Serum Glucose 77 74-106 mg/dL Microbiology Date/Time Source Procedure Growth Status 09/22/24 14:40 Sacrum Gram Stain - Final Resulted 09/22/24 14:40 Wound Culture - Preliminary Proteus mirabilis Resulted 09/21/24 10:35 Voided Urine Urine Culture - Final Complete 09/21/24 02:15 Sputum Gram Stain - Final Complete 09/21/24 02:15 Respiratory Culture - Final Enterobacter aerogenes Complete 09/21/24 01:59 Blood Blood Culture - Final Proteus mirabilis Complete Problem List/Assessment/Plan Problem List/Assessment/Plan Acute kidney injury superimposed Chronic Kidney Disease secondary hemodynamic mediated Acute respiratory failure, patient intubated on ventilator Hypernatremia due to dehydration Sepsis Urinary tract infection NSTEMI Anemia of chronic kidney disease hypotonic fluids IV reduce rate encourage po potassium replacement Avoid nephrotoxic medications Navarro catheter Strict I&Os IV antibiotics i will sign off Plan discussed with: Patient Dietary Evaluation Review Recommendations by RD: Protein Supplementation Comments: 1) Initiate Pro-Stat @ 30 mL qd 2) Consult nephrology if vitamin C @ 500 mg bid and zinc sulfate @ 220 mg qd are appropriate d/t patient's renal function 3) If patient remains NPO > 7 days, consider EN/TPN to meet at least 75% estimated daily needs 4) If GI route is preferred, consider Vital AF1.2 @ 30 mL/hr goal rate as tolerated. Flush with 200 mL free H2O Q6H. Goal rate will provide 1241 kcals (including Propofol and Pro-Stat), 69g Pro (including Pro-Stat), and 1106 mL free H2O per 24 hrs. TF regimen will meet ~ 99% estimated daily energy needs and 91% estimated daily protein needs. Note, estimated energy needs using 25 kcal/kg to prevent overfeeding. Note, if Propofol is d/c increase rate to 40 mL/hr. 5)Advance to regular diet when medically feasible, pending WATER PUMP OPERATOR approval 6) Continue to monitor I&O, labs, and skin integrity Expected Outcomes/Goals: 1) patient to receive nutrition support within 7 days of NPO status 2) labs and wounds to improve 3) diet to advance 4) f/u in 2-3 days SONYA CURRY MD Sep 24, 2024 15:02
[2024-09-24] MEDS: SOD CHL 0.45% 1,000 ML IV SCH (15:15)
--- NOTE | 2024-09-24 23:27 | DVHPN2 ---
Progress Note - Dictate Date Seen: Sep 24, 2024 Medical Necessity Reason Pt with a Central, PICC or Fol: Yes The following are medically ne: Navarro Catheter Reason for navarro catheter: Strict I&O Subjective Patient seen and examined at bedside. Currently breathing on room air Overnight events reviewed. vital signs Vital Sign Date Time Temp Pulse Resp B/P (MAP) Pulse Ox O2 Delivery O2 Flow Rate FiO2 09/24/24 21:00 97.3 76 18 125/57 (79) 96 97.3 09/24/24 20:00 Room Air* 0 21 Total Intake and Output 09/23/24 09/23/24 09/24/24 15:00 23:00 07:00 Intake Total 906.50 ml 800 ml 900 ml Output Total 500 ml 550 ml Balance 906.50 ml 300 ml 350 ml medications Current Medications Medications Dose Ordered Sig/Ijeoma Route Start Time Stop Time Status Last Admin Dose Admin Famotidine 20 mg DAILY IV 09/21/24 10:00 09/24/24 10:01 20 MG Hydralazine HCl 10 mg Q6HP PRN IV 09/21/24 04:15 Sodium Chloride 10 ml Q8HR IV 09/21/24 06:00 09/24/24 22:15 10 ML Ondansetron HCl 4 mg Q4HP PRN IV 09/21/24 04:15 Nitroglycerin 0.4 mg Q5MINP PRN SL 09/21/24 06:00 Morphine Sulfate 2 mg Q30M PRN IV 09/21/24 06:00 Enoxaparin Sodium 30 mg DAILY IV 09/22/24 10:00 09/24/24 10:00 30 MG Pantoprazole Sodium 40 mg DAILY IV 09/22/24 10:00 09/24/24 10:01 40 MG Enteral Nutritional Formula 1,000 ml 30ML/HR GT 09/22/24 14:30 09/22/24 20:25 1,000 ML Acetaminophen 650 mg Q6HP PRN PO 09/22/24 17:45 09/23/24 12:28 650 MG Enteral Nutritional Formula 240 ml TIDWM PO 09/24/24 12:00 Levofloxacin/ Dextrose 100 ml @ 100 mls/hr DAILY IV 09/24/24 10:38 09/24/24 13:54 100 MLS/HR Sodium Chloride 1,000 ml @ 50 mls/hr Q20H IV 09/24/24 15:15 09/24/24 15:15 50 MLS/HR objective Gen.: Patient lying in bed in no apparent distress. On room air. Head: Normocephalic, atraumatic. Eyes: EOMI/PERRLA. Ears: Normal hearing. Normal anatomy. Neck/trachea: Trachea midline, supple. Nose: Normal external anatomy. Mouth: Moist mucous membranes. Chest: Decreased air entry bilaterally. No wheezing or rhonchi. Cardiovascular: Positive S1, positive S2. Regular rate and rhythm. Abdomen: Positive bowel sounds in all 4 quadrants. Soft, non-tender, non- distended. : Deferred. Rectal: Deferred. Skin: Warm, dry. Intact. Extremities: 2+ radial pulses bilaterally. No lower extremity edema. Neuro: Awake, alert, oriented x3. No gross motor or sensory deficits. Cranial nerves II through XII intact. Gait not assessed. laboratory and microbiology Laboratory Tests 09/24/24 04:47 Test 09/24/24 04:47 Range/Units Serum Glucose 77 74-106 mg/dL Assessment/Plan Impression: Acute hypoxic respiratory failure On mechanical ventilator Septic shock Metabolic encephalopathy, acute Acute on chronic renal failure Abnormal liver function tests Sacral decubitus ulcer Pressure ulcer of the sacral region, stage IV Cachexia, BMI 18.3 Lactic acidosis Anemia Events: Currently breathing on room air Supplemental oxygen PRN. No new complaints. Head of bed elevation Aspiration precautions Off Levophed, hemodynamically stable. Continue antibiotics Continue IV fluids at 50 ml/hr. Monitor renal function due to acute kidney injury. Monitor electrolytes. Supplement as necessary. Potassium supplementation Nephrology recommendations appreciated. Swallow eval. Patient is stable for downgrade from the pulmonary standpoint. Labs and imaging reviewed. Rest of plan as noted below. Plan: s/p extubation on 09/23/24 Supplemental oxygen PRN Titrate to keep O2 sats above 90%. Pressors if necessary for hemodynamic support. Titrate to keep MAP above 65 mmHg/SBP above 90 mmHg. Continue antibiotics. F/u cultures. Monitor renal function due to acute kidney injury. Monitor electrolytes. Supplement as necessary. Nephrology recommendations appreciated Nutritional support. Accu-Cheks, ISS. GI prophylaxis-Pepcid DVT prophylaxis. Recommend SCDs Prognosis: Poor given multiple comorbidities. Rest of plan per hospitalist and other consultants. Thank you Dr. Mary Saravia for allowing me to participate in this patient's care. Further recommendations will depend on patient's clinical course. Please do not hesitate to contact me if you have any questions or concerns. This medical document was created using an electronic medical record system with [employer] system. Although this document has been carefully reviewed, there may still be some phonetic and typographical errors. These areas are purely typographical due to imperfections of the software programs, and do not reflect any compromise in the patient's medical care. Dietary Evaluation Review Recommendations by RD: Protein Supplementation Comments: 1) Initiate Pro-Stat @ 30 mL qd 2) Consult nephrology if vitamin C @ 500 mg bid and zinc sulfate @ 220 mg qd are appropriate d/t patient's renal function 3) If patient remains NPO > 7 days, consider EN/TPN to meet at least 75% estimated daily needs 4) If GI route is preferred, consider Vital AF1.2 @ 30 mL/hr goal rate as tolerated. Flush with 200 mL free H2O Q6H. Goal rate will provide 1241 kcals (including Propofol and Pro-Stat), 69g Pro (including Pro-Stat), and 1106 mL free H2O per 24 hrs. TF regimen will meet ~ 99% estimated daily energy needs and 91% estimated daily protein needs. Note, estimated energy needs using 25 kcal/kg to prevent overfeeding. Note, if Propofol is d/c increase rate to 40 mL/hr. 5)Advance to regular diet when medically feasible, pending CELLOPHANE BAG MACHINE OPERATOR approval 6) Continue to monitor I&O, labs, and skin integrity Expected Outcomes/Goals: 1) patient to receive nutrition support within 7 days of NPO status 2) labs and wounds to improve 3) diet to advance 4) f/u in 2-3 days Plan discussed with: Patient, Other (JASON Bailey) ROBERT MCKINNON MD Sep 24, 2024 23:27
[2024-09-25 01:00] VITALS: BP 123/53; PULSE 80; RESP 18; TEMP 98.9; O2SAT 96
[2024-09-25 05:00] VITALS: BP 132/51; PULSE 79; RESP 18; TEMP 98.3; O2SAT 97
--- NOTE | 2024-09-25 08:42 | DVHPN2 ---
Reviewed: Care Plan, H&P, Labs, Medications, Previous Orders, Radiology Changes from previous H/P or p: No Changes Eyes: No Pain, No Vision change, No Conjunctivae inflammation, No Eyelid inflammation, No Other, No Redness ENT: No Ear pain, No Ear discharge, No Nose pain, No Nose discharge, No Nose congestion, No Mouth pain, No Mouth swelling, No Throat pain, No Throat swelling, No Other Cardiovascular: No Chest Pain, No Palpitations, No Orthopnea, No Paroxysmal Noc. Dyspnea, No Edema, No Lt Headedness, No Other Respiratory: No Cough, No Dry; Shortness of breath; No SOB with excertion, No Wheezing, No Hemoptysis, No Pleuritic Pain, No Sputum, No Other Gastrointestinal: No Nausea, No Vomiting, No Abdominal Pain, No Diarrhea, No Constipation, No Melena, No Hematochezia, No Other Genitourinary: No Dysuria, No Frequency, No Incontinence, No Hematuria, No Retention, No Other Musculoskeletal: No other, No neck pain, No shoulder pain, No arm pain, No back pain, No hand pain, No leg pain, No foot pain Skin: No Rash, No Lesions, No Jaundice, No Bruising; Other (Sacral decubitus ulcer) Objective Vitals Vital Signs Date Time Temp Pulse Resp B/P (MAP) Pulse Ox O2 Delivery O2 Flow Rate FiO2 09/25/24 05:00 98.3 79 18 132/51 (78) 97 98.3 09/24/24 20:00 Room Air* 0 21 Intake/Output Intake and Output 09/25/24 07:00 Intake Total 1775 ml Output Total 1175 ml Balance 600 ml Intake Oral 475 ml IV Total 1300 ml Output Urine Total 1175 ml # Bowel Movements 8 Medications Current Medications Medications Dose Ordered Sig/Ijeoma Route Start Time Stop Time Status Last Admin Dose Admin Famotidine 20 mg DAILY IV 09/21/24 10:00 09/24/24 10:01 20 MG Hydralazine HCl 10 mg Q6HP PRN IV 09/21/24 04:15 Sodium Chloride 10 ml Q8HR IV 09/21/24 06:00 09/25/24 05:49 10 ML Ondansetron HCl 4 mg Q4HP PRN IV 09/21/24 04:15 Nitroglycerin 0.4 mg Q5MINP PRN SL 09/21/24 06:00 Morphine Sulfate 2 mg Q30M PRN IV 09/21/24 06:00 Enoxaparin Sodium 30 mg DAILY IV 09/22/24 10:00 09/24/24 10:00 30 MG Pantoprazole Sodium 40 mg DAILY IV 09/22/24 10:00 09/24/24 10:01 40 MG Enteral Nutritional Formula 1,000 ml 30ML/HR GT 09/22/24 14:30 09/22/24 20:25 1,000 ML Acetaminophen 650 mg Q6HP PRN PO 09/22/24 17:45 09/23/24 12:28 650 MG Enteral Nutritional Formula 240 ml TIDWM PO 09/24/24 12:00 Levofloxacin/ Dextrose 100 ml @ 100 mls/hr DAILY IV 09/24/24 10:38 09/24/24 13:54 100 MLS/HR Sodium Chloride 1,000 ml @ 50 mls/hr Q20H IV 09/24/24 15:15 09/24/24 15:15 50 MLS/HR Laboratory Results Laboratory Tests 09/24/24 04:47 Urinalysis Test 09/21/24 10:35 Urine Color Yellow (Yellow) Urine Clarity Clear (Clear) Urine pH 6.0 (5.0-9.0) Urine Specific [place] 1.022 (1.001-1.035) Urine Protein Negative (Negative) Urine Ketones Negative (Negative) Urine Blood Negative /uL (Negative) Urine Nitrite Negative (Negative) Urine Bilirubin Negative (Negative) Urine Urobilinogen Normal mg/dL (Negative) Urine Leukocyte Esterase 2+ /uL (Negative) Urine RBC 2 /hpf (0 - 4) Urine Microscopic WBC 10 /HPF (0-5) H Urine Squamous Epithelial Cells Few /hpf (<5) Urine Bacteria None seen /hpf (None Seen) Urine Creatinine 64.58 mg/dL (30.0-125.0) Urine Protein/Creatinine Ratio 0.41 Urine Sodium 35 mmol/L (40-220) L Urine Glucose 3+ mg/dL (Normal) H Urine Total Protein 26.8 mg/dL (1-14) H Microbiology Microbiology Date/Time Source Procedure Growth Status 09/22/24 14:40 Sacrum Gram Stain - Final Resulted 09/22/24 14:40 Wound Culture - Preliminary Proteus mirabilis Resulted 09/21/24 10:35 Voided Urine Urine Culture - Final Complete 09/21/24 02:15 Sputum Gram Stain - Final Complete 09/21/24 02:15 Respiratory Culture - Final Enterobacter aerogenes Complete 09/21/24 01:59 Blood Blood Culture - Final Proteus mirabilis Complete Labs and/or images reviewed: Labs reviewed by me, Image(s) reviewed by me Assessment/Plan Assessment/Plan Acute Hypoxic respiratory failure status post intubated, extubated on 09/23/[address] Esposito appreciated, currently on room air Bacteremia with Proteus mirabilis: Continue Levaquin 500 mg IV daily for two weeks Bilateral community-acquired pneumonia: Levaquin Sputum cultures growing Enterobacter aerogenes: Start Levaquin 500 mg IV daily Wound cultures growing Proteus mirabilis: Continue Levaquin Septic Shock with elevated white count altered mental status possibly secondary to pneumonia Hypertension Dementia Acute kidney injury with BUN creatinine 121 and 1.[address] Jefferson appreciated Acute hyperkalemia potassium 5.8 treatment per hyperkalemia protocol Acute lactic acidosis Acute metabolic encephalopathy Patient came from board and care Patient is hospice revoked Rapid flu test negative Jo test negative Condition guarded Time spent 55 minutes Patient is full code Advanced care planning time 20 minutes Patient is seen in med surg Seen in med sug Wound Care consult Sitter Swallow evaluation Spoke with pts daughter Marta [phone] on the phone and advised the current condition of the pt, she lives in [facility] Plan discussed with: Patient My Orders Orders - MARY BETH WOMACK MD Procedure Category Date Status Time Sitter 1:1 ORDERS 09/24/24 Transmitted 08:21 Transfer Orders XFER 09/24/24 Transmitted 08:21 * Wound Consult CONS 09/24/24 Transmitted * Swallow Request ST 09/24/24 Transmitted 08:21 Nutritional PHA 09/24/24 In Process Supplements (Ensure 12:00 Levofloxacin 500mg PHA 09/24/24 In Process (Levaquin 500mg/ 100m 10:38 Pureed DIET 09/24/24 Transmitted Dinner Date of Service: Sep 25, 2024 Billing Provider: MARY BETH WOMACK MD Common Visit Codes: [id number] INP/OBS CARE(HIGH) MARY BETH WOMACK MD Sep 25, 2024 08:42
--- NOTE | 2024-09-25 08:49 | DVHDS2 ---
Discharge Summary Date of Admission Sep 21, 2024 at 05:56 Date of Discharge: Sep 25, 2024 Admitting Diagnosis Shortness of breaths and altered mental status Wounds: Right femoral central line Labs/Diagnostic Data: Laboratory Results Test 09/24/24 04:47 09/23/24 20:49 09/23/24 16:36 09/23/24 07:31 White Blood Count 8.5 10^3/uL (4.4-10.8) Red Blood Count 2.80 10^6/uL (4.0-5.20) Hemoglobin 8.8 g/dL (12.2-16.2) Hematocrit 25.8 % (36.0-46.0) Mean Corpuscular Volume 91.9 fL (80.0-100.0) Mean Corpuscular Hemoglobin 31.4 pg (28.0-32.0) Mean Corpuscular Hemoglobin Concent 34.2 g/dL (32.0-36.0) Red Cell Distribution Width 15.3 % (11.8-14.3) Platelet Count 156 10^3/uL (140-450) Mean Platelet Volume 8.5 fL (6.9-10.8) Neutrophils (%) (Auto) 83.7 % (37.0-80.0) Lymphocytes (%) (Auto) 7.4 % (10.0-50.0) Monocytes (%) (Auto) 8.1 % (0.0-12.0) Eosinophils (%) (Auto) 0.7 % (0.0-7.0) Basophils (%) (Auto) 0.1 % (0.0-2.0) Neutrophils # (Auto) 7.1 10 ^3/uL (1.6-8.6) Lymphocytes # (Auto) 0.6 10 ^3/uL (0.4-5.4) Monocytes # (Auto) 0.7 10 ^3/uL (0-1.3) Eosinophils # (Auto) 0.1 10 ^3/uL (0-0.8) Basophils # (Auto) 0 10 ^3/uL (0-0.2) Nucleated Red Blood Cells 0.0 % Sodium Level 140 mmol/L (136-145) Potassium Level 3.2 mmol/L (3.5-5.1) Chloride Level 109 mmol/L (98-107) Carbon Dioxide Level 22 mmol/L (20-31) Anion Gap 9 (5-15) Blood Urea Nitrogen 24 mg/dL (9-23) Creatinine 0.60 mg/dL (0.550-1.02) Glomerular Filtration Rate Calc 92 mL/min (>90) BUN/Creatinine Ratio 40.0 (10.0-20.0) Serum Glucose 77 mg/dL (74-106) Calcium Level 8.3 mg/dL (8.7-10.4) Magnesium Level 2.1 mg/dL (1.6-2.6) Total Bilirubin 0.6 mg/dL (0.2-1.0) Aspartate Amino Transferase (AST) 73 U/L (13-40) Alanine Aminotransferase (ALT) 38 U/L (7-40) Alkaline Phosphatase 113 U/L (46-116) Total Protein 5.9 g/dL (5.7-8.2) Albumin 3.0 g/dL (3.2-4.8) Influenza Type A Antigen Negative (Negative) Influenza Type B Antigen Negative (Negative) SARS-CoV-2 Antigen (Rapid) Negative (NEGATIVE) Blood Gas Specimen Type Arterial Blood Gas Sample Site Right radial Blood Gas Patient Temperature 37.0 Arterial Blood Date Drawn [id number] Arterial Blood pH 7.546 (7.350-7.450) Arterial Blood Partial Pressure CO2 24.8 mmHg (32.0-45.0) Arterial Blood Partial Pressure O2 121.3 mmHg (83.0-108.0) Arterial Blood HCO3 21.0 mmol/L (21.0-28.0) Arterial Blood Oxygen Saturation 98.1 % (94.0-98.0) Arterial Blood Base Excess -0.7 mmol/L (-2.0-3.0) Arterial Blood Oxyhemoglobin 97.3 % (94.0-98.0) Arterial Blood Carboxyhemoglobin 0.3 % (0.5-1.5) Arterial Blood Methemoglobin 0.5 % (0.0-1.5) Robert Test Modified Blood Gas Total Hemoglobin 9.10 g/dL (12.0-16.0) Blood Gas Modality Vent - cpap FiO2 % 30.0 Blood Gas Pressure Support 8 Blood Gas PEEP or CPAP 5.0 Blood Gas Set Respiration Rate 16.0 Blood Gas Tidal Volume 450.0 Test 09/22/24 05:01 09/21/24 12:10 09/21/24 11:14 09/21/24 10:35 Phosphorus Level 3.6 mg/dL (2.4-5.1) Parathyroid Hormone (Intact) 52.2 pg/mL (18.4-80.1) Vitamin D 25-Hydroxy 71.1 ng/mL (30.0-100) Urine Color Yellow (Yellow) Urine Clarity Clear (Clear) Urine pH 6.0 (5.0-9.0) Urine Specific Goldsmith 1.022 (1.001-1.035) Urine Protein Negative (Negative) Urine Ketones Negative (Negative) Urine Blood Negative /uL (Negative) Urine Nitrite Negative (Negative) Urine Bilirubin Negative (Negative) Urine Urobilinogen Normal mg/dL (Negative) Urine Leukocyte Esterase 2+ /uL (Negative) Urine RBC 2 /hpf (0 - 4) Urine Microscopic WBC 10 /HPF (0-5) Urine Squamous Epithelial Cells Few /hpf (<5) Urine Bacteria None seen /hpf (None Seen) Urine Creatinine 64.58 mg/dL (30.0-125.0) Urine Protein/Creatinine Ratio 0.41 Urine Sodium 35 mmol/L (40-220) Urine Glucose 3+ mg/dL (Normal) Urine Total Protein 26.8 mg/dL (1-14) Test 09/21/24 06:28 09/21/24 05:03 09/21/24 04:12 09/21/24 03:03 Lactic Acid Level 3.3 mmol/L (0.4-2.0) Hemoglobin A1c 5.5 % A1C (<5.7) Troponin I High Sensitivity 276 ng/L (</=34) POC Glucose 156 mg/dl (70-106) Blood Gas Critical Value Read Back Yes Blood Gas Notified Whom elyse Chavez Blood Gas Notified Time [id number] Blood Gas Notified By Glaze Wiper caroline lopez Other Laboratory Tests 09/24/24 04:47 Brief Hx & Hospital Course: 79-year-old female with a history of hypertension dementia was in a board and care on hospice brought into the ER for shortness of breaths and altered mental status found to have community-acquired pneumonia with a acute respiratory failure intubated and treated in the [facility] patient was subsequently extubated on 09/23/2024 on transferred to the med surge patient has bacteremia with a Proteus mirabilis started on Levaquin 500 mg IV daily for three weeks also bilateral community-acquired pneumonia treated with the Zosyn and transition to Levaquin patient also has a unstageable decubitus ulcers in the back and wound cultures came positive for Proteus mirabilis and Levaquin is continued. Sputum cultures grew Enterobacter aerogenes and started on Levaquin Patient has severe underlying dementia. ALEXA treated with the IV fluids nephrology consult appreciated acute hyperkalemia resolved. At the time of discharge patient is on the med surge on room air stable vital signs Discussed with the patient's daughter Marta [phone] and patient is being discharged to [facility] facility for IV Levaquin for three weeks. Hospice revoked Consults/Reason for consult Pulmonary Dr. Esposito Operations or Procedures Right femoral central line Endotracheal intubation Condition at Discharge: Fair Final Diagnosis/Problems List Acute Hypoxic respiratory failure status post intubated, extubated on 09/23/[address] Esposito appreciated, currently on room air Bacteremia with Proteus mirabilis: Continue Levaquin 500 mg IV daily for two weeks Bilateral community-acquired pneumonia: Levaquin Sputum cultures growing Enterobacter aerogenes: Start Levaquin 500 mg IV daily Wound cultures growing Proteus mirabilis: Continue Levaquin Septic Shock with elevated white count altered mental status possibly secondary to pneumonia Hypertension Dementia Acute kidney injury with BUN creatinine 121 and 1.[address] Jefferson appreciated Acute hyperkalemia potassium 5.8 treatment per hyperkalemia protocol Acute lactic acidosis Acute metabolic encephalopathy Patient came from board and care Patient is hospice revoked Rapid flu test negative Jo test negative [facility] Discharge Instruct/Medications Diet: Cardiac 2g Na,low cholest Activity: Light activity Follow Up/Referral: Follow up with the long-term Medications: Levaquin 500 mg IV daily for three weeks See list for other meds 39 (Time taken for discharge summary 39 minutes) Discharge Statement: "Patient was advised to return to the ER or call 911 if any headaches, dizziness, shortness of breath, chest pain, abdominal pain, bleeding, fevers, or worsening of medical condition. Patient was counseled about treatment plan, medications, possible side effects, patientverbalized understanding. All questions were answered to the best of my ability. This discharge took greater then 30 minutes in planning, reviewing documentation, counseling the patient, and discussing with other team members." ASSESSMENT ASSESSMENT Hospital Course Improved Assessment Acute Hypoxic respiratory failure status post intubated, extubated on 09/23/[address] Esposito appreciated, currently on room air Bacteremia with Proteus mirabilis: Continue Levaquin 500 mg IV daily for two weeks Bilateral community-acquired pneumonia: Levaquin Sputum cultures growing Enterobacter aerogenes: Start Levaquin 500 mg IV daily Wound cultures growing Proteus mirabilis: Continue Levaquin Septic Shock with elevated white count altered mental status possibly secondary to pneumonia Hypertension Dementia Acute kidney injury with BUN creatinine 121 and 1.[address] Jefferson appreciated Acute hyperkalemia potassium 5.8 treatment per hyperkalemia protocol Acute lactic acidosis Acute metabolic encephalopathy Patient came from board and care Patient is hospice revoked Rapid flu test negative Jo test negative Date of Service: Sep 25, 2024 Billing Provider: MARY BETH WOMACK MD Common Visit Codes: 32739-KNO/OBS DISCH DAY >30min MARY BETH WOMACK MD Sep 25, 2024 08:49
[2024-09-25 13:00] VITALS: BP 125/55; PULSE 77; RESP 18; TEMP 97.6; O2SAT 96
[2024-09-25 13:36] VITALS: TEMP 36.8
[2024-09-25] MEDS: LINEZOLID 600MG/300ML 300 ML IV SCH (15:28)
[2024-09-25 16:53] VITALS: BP 119/55; PULSE 77; RESP 18; TEMP 97.9; O2SAT 97
--- NOTE | 2024-09-25 22:56 | DVHPN2 ---
Progress Note - Dictate Date Seen: Sep 25, 2024 Medical Necessity Reason Pt with a Central, PICC or Fol: Yes The following are medically ne: Navarro Catheter Reason for navarro catheter: Strict I&O Subjective Patient seen and examined at bedside. Breathing comfortably on room air Overnight events reviewed. vital signs Vital Sign Date Time Temp Pulse Resp B/P (MAP) Pulse Ox O2 Delivery O2 Flow Rate FiO2 09/25/24 16:53 97.9 77 18 119/55 (76) 97 97.9 09/25/24 08:00 Room Air* 0 21 Total Intake and Output 09/24/24 09/24/24 09/25/24 15:00 23:00 07:00 Intake Total 1100 ml 225 ml 450 ml Output Total 525 ml 650 ml Balance 1100 ml -300 ml -200 ml objective Gen.: Patient lying in bed in no apparent distress. On room air. Head: Normocephalic, atraumatic. Eyes: EOMI/PERRLA. Ears: Normal hearing. Normal anatomy. Neck/trachea: Trachea midline, supple. Nose: Normal external anatomy. Mouth: Moist mucous membranes. Chest: Decreased air entry bilaterally. No wheezing or rhonchi. Cardiovascular: Positive S1, positive S2. Regular rate and rhythm. Abdomen: Positive bowel sounds in all 4 quadrants. Soft, non-tender, non- distended. : Deferred. Rectal: Deferred. Skin: Warm, dry. Intact. Extremities: 2+ radial pulses bilaterally. No lower extremity edema. Neuro: Awake, alert, oriented x3. No gross motor or sensory deficits. Cranial nerves II through XII intact. Gait not assessed. laboratory and microbiology Laboratory Tests 09/24/24 04:47 Test 09/24/24 04:47 Range/Units Serum Glucose 77 74-106 mg/dL Assessment/Plan Impression: Acute hypoxic respiratory failure Septic shock Metabolic encephalopathy, acute Acute on chronic renal failure Abnormal liver function tests Sacral decubitus ulcer Pressure ulcer of the sacral region, stage IV Cachexia, BMI 18.3 Lactic acidosis Anemia Events: Remains on room air Supplemental oxygen PRN. No new complaints. Head of bed elevation Aspiration precautions Complete antibiotic course Passed swallow eval, on puree diet Patient is stable for discharge from the pulmonary standpoint. Labs and imaging reviewed. Rest of plan as noted below. Plan: s/p extubation on 09/23/24 Supplemental oxygen PRN Titrate to keep O2 sats above 90%. Complete antibiotics. Monitor renal function due to acute kidney injury. Monitor electrolytes. Supplement as necessary. Nephrology recommendations appreciated Nutritional support. Accu-Cheks, ISS. GI prophylaxis-Pepcid DVT prophylaxis. SCDs Prognosis: Poor given multiple comorbidities. Rest of plan per hospitalist and other consultants. Thank you Dr. Mary Saravia for allowing me to participate in this patient's care. Further recommendations will depend on patient's clinical course. Please do not hesitate to contact me if you have any questions or concerns. This medical document was created using an electronic medical record system with eshtery[employer] system. Although this document has been carefully reviewed, there may still be some phonetic and typographical errors. These areas are purely typographical due to imperfections of the software programs, and do not reflect any compromise in the patient's medical care. Dietary Evaluation Review Recommendations by RD: Protein Supplementation Comments: 1) Initiate Pro-Stat @ 30 mL qd 2) Consult nephrology if vitamin C @ 500 mg bid and zinc sulfate @ 220 mg qd are appropriate d/t patient's renal function 3) If patient remains NPO > 7 days, consider EN/TPN to meet at least 75% estimated daily needs 4) If GI route is preferred, consider Vital AF1.2 @ 30 mL/hr goal rate as tolerated. Flush with 200 mL free H2O Q6H. Goal rate will provide 1241 kcals (including Propofol and Pro-Stat), 69g Pro (including Pro-Stat), and 1106 mL free H2O per 24 hrs. TF regimen will meet ~ 99% estimated daily energy needs and 91% estimated daily protein needs. Note, estimated energy needs using 25 kcal/kg to prevent overfeeding. Note, if Propofol is d/c increase rate to 40 mL/hr. 5)Advance to regular diet when medically feasible, pending INFANTRY OFFICER approval 6) Continue to monitor I&O, labs, and skin integrity Expected Outcomes/Goals: 1) patient to receive nutrition support within 7 days of NPO status 2) labs and wounds to improve 3) diet to advance 4) f/u in 2-3 days Plan discussed with: Patient, Other (JASON Leary) ROBERT MCKINNON MD Sep 25, 2024 22:56
== END 2024-09-25 17:43 | DRG 871 ==
LOC: ER 01:25 → EDBD 01:25 → MERGE 05:56 → OVERFLOW 05:56 → ICU CENTRL 17:01 → TELE-CENTR 09-24 18:54
PROVIDERS: ADMIT Family Medicine; ATTEND Family Medicine
PROC: 0BH17EZ Insertion of Endotracheal Airway into Trachea, Via Natural or Artificial Opening (ICD-10-PCS; principal; 2024-09-21)
PROC: 5A1945Z Respiratory Ventilation, 24-96 Consecutive Hours (ICD-10-PCS; 2024-09-21)
PROC: 06HY33Z Insertion of Infusion Device into Lower Vein, Percutaneous Approach (ICD-10-PCS; 2024-09-21)
PROC: 05H933Z Insertion of Infusion Device into Right Brachial Vein, Percutaneous Approach (ICD-10-PCS; 2024-09-25)
PROC: B54MZZA Ultrasonography of Right Upper Extremity Veins, Guidance (ICD-10-PCS; 2024-09-25)
DX: A41.59 Other Gram-negative sepsis (principal); G93.41 Metabolic encephalopathy; R65.21 Severe sepsis with septic shock; L89.154 Pressure ulcer of sacral region, stage 4; J96.01 Acute respiratory failure with hypoxia; N17.0 Acute kidney failure with tubular necrosis; I21.A1 Myocardial infarction type 2; J15.69 Pneumonia due to other Gram-negative bacteria; J15.9 Unspecified bacterial pneumonia; N39.0 Urinary tract infection, site not specified; E87.0 Hyperosmolality and hypernatremia; R64 Cachexia; Z68.1 Body mass index [BMI] 19.9 or less, adult; E87.4 Mixed disorder of acid-base balance; E86.0 Dehydration; E87.5 Hyperkalemia; D63.1 Anemia in chronic kidney disease; F03.90 Unspecified dementia, unspecified severity, without behavioral disturbance, psychotic disturbance, mood disturbance, and anxiety; I12.9 Hypertensive chronic kidney disease with stage 1 through stage 4 chronic kidney disease, or unspecified chronic kidney disease; N18.9 Chronic kidney disease, unspecified; Z79.899 Other long term (current) drug therapy
CPT/HCPCS: 31500; 36415; 36556; 36600; 71045; 80048; 80053; 81001; 82306; 82570; 82805; 82962; 83036; 83605; 83735; 83970; 84100; 84156; 84300; 84484; 85025; 87040; 87070; 87077; 87081; 87086; 87186; 87205; 87426; 87804; 92610; 94002; 94003; 96361; 96365; 96375; 97163; 99291; G0378; J0692; J1815; J1956; J2405; J2470; J2543; J2704; J3480; J3490; J7060